=== PATIENT | female | born 1970 | race Caucasian/White ===

== ENCOUNTER 2022-08-09 12:31 | Outpatient (REF) | payer OTHER, SELFPAY ==
[2022-08-09 15:09] LABS: Erythrocyte Sedimentation Rate 28 MM/HR (0-20)
== END 2022-08-09 12:32 | disposition home or self-care (01) ==
LOC: HO.XRAY 12:31
PROVIDERS: PCP Internal Medicine; Visit Provider Internal Medicine Rheumatology
DX: M25.561 Pain in right knee (principal); R20.0 Anesthesia of skin
CPT/HCPCS: 36415; 85652; 86140; 99202

== ENCOUNTER 2024-07-16 07:36 | Outpatient (REF) | payer OTHER, SELFPAY ==
[2024-07-16 10:45] LABS: Alanine Aminotransferase 44 U/L (0-31); Albumin Level 4.4 g/dL (3.5-5.0); Alkaline Phosphatase 77 U/L (39-117); Anion Gap 14 (12-20); Aspartate Amino Transferase 47 U/L (5-31); Bilirubin Total 0.5 mg/dL (0.0-1.0); Blood Urea Nitrogen 15 mg/dL (9-16); Calcium 10.2 mg/dL (8.4-10.2); Carbon Dioxide 26 mmol/L (22-29); Chloride 101 mmol/L (96-108); Cholesterol 210 mg/dL (<200); Estimated Glomerular Filt Rate > 60; Glucose Random 91 mg/dL (60-115); HDL Cholesterol 45 mg/dL (>40); LDL Cholesterol Calculated 121 mg/dL (<100); Potassium 3.9 mmol/L (3.3-5.1); Sodium 137 mmol/L (135-145); Triglycerides 221 mg/dL (<150)
[2024-07-16 10:47] LABS: Estimated Average Glucose 111 mg/dL; Hemoglobin A1C 129.3689 umol/L; Hemoglobin A1c % 5.5 % (<6.0); Total Hemoglobin (HGBA1C) 3565.7168 umol/L
== END 2024-07-16 07:37 | disposition home or self-care (01) ==
LOC: HO.HMGCLDS 07:36
PROVIDERS: PCP Internal Medicine; Referring Provider Nurse Practitioner Acute Care; Visit Provider Physician Assistant
DX: E11.29 Type 2 diabetes mellitus with other diabetic kidney complication (principal); R80.9 Proteinuria, unspecified; E78.00 Pure hypercholesterolemia, unspecified
CPT/HCPCS: 36415; 80053; 80061; 83036

== ENCOUNTER 2025-01-08 14:40 | Outpatient (AMB) | payer OTHER, SELFPAY ==
[2025-01-08 14:58] VITALS: BP 112/80; PULSE 68; TEMP 36.8; O2SAT 98
--- NOTE | 2025-01-08 14:58 | MHC.OFFWIV ---
Intake Vital Signs 01/08/25 14:58 Weight 121 lb BP 112/80 Blood Pressure Location Rt brachial Position Sitting Pulse 68 Pulse Source Pulse Oximeter Temp 98.3 F Temp Source Oral Pulse Oximetry (%) 98 Oxygen Delivery Method Room Air Intake Visit Reasons: FACING [employer]ER Bilat ear pain/itching, cough Patient Tobacco Use Status: Never used Tobacco Allergies iodine Allergy (Intermediate, Verified 01/08/25 14:59) RASH ibuprofen [From Advil] Adverse Reaction (Severe, Verified 01/08/25 15:00) tachycardia shellfish derived Adverse Reaction (Mild, Verified 01/08/25 14:59) Nausea and Vomiting Do you need a note to return to daycare/school/sports/work: No HPI HPI Comments History of Present Illness Details She presents with L sided ear ache this am + allergy symptoms with congestion yesterday Pain with palpated into L ear with itchiness inside No drainage 05/14 discomfort No trauma she can recall with Q tip + cough since yesterday Takes Loratidine for symptoms PFSH Medical History (Updated 01/08/25 @ 15:19 by Enriqueta Rinaldi PA-C) Hepatic steatosis GERD (gastroesophageal reflux disease) Obesity (BMI 30-39.9) Diabetes Surgical History Hx laparoscopic cholecystectomy Hx of tubal ligation Family History (Updated 08/09/22 @ 11:10 by JASBIR Wilson) Mother Diabetes Father Diabetes Myocardial infarct Hypertension Social History (Updated 08/09/22 @ 11:10 by JASBIR Wilson) Household Members: Spouse Alcohol intake: current Alcohol intake frequency: does not drink Patient Tobacco Use Status: Never used Tobacco Current occupational status: unemployed Review of Systems Const Denies chills and Denies fever(s) ENT Reports otalgia and Reports nasal congestion Resp Reports cough Musc Denies myalgias Physical Exam Vital Signs: Last Vital Signs Temp 98.3 F 01/08/25 14:58 Pulse 68 01/08/25 14:58 BP 112/80 01/08/25 14:58 Pulse Ox 98 01/08/25 14:58 Oxygen Delivery Method Room Air 01/08/25 14:58 General: Non-toxic, NAD. Speaking full sentences. Skin: Warm dry throughout Eye: EOMI HENT: Airway patent. Uvula midline. No pharyngeal erythema or edema. No W[employer] REPA[employer]ER. Bilateral canals clear. L TM + yellow fluid noted behind TM but TM non-erythematous, non-bulging bilaterally. No TM perforation or hemotympanum noted. No external aurcicle ttp. No mastoid tenderness Respiratory: CTA bilaterally. No wheezes, rales or rhonchi Cardiac: RRR. No murmur Neurology:Alert. No aphasia or facial droop. Gait without abnormality Psych: Good mood and affect Assessment & Plan Assessment & Plan (1) Eustachian tube dysfunction: Code(s): H69.90 - Unspecified Eustachian tube disorder, unspecified ear Qualifiers: Laterality: left Qualified Code(s): H69.92 - Unspecified Eustachian tube disorder, left ear Plan: Patient seen and evaluated. + fluid behind L ear Not infected yet but discussed could become infected if fluid not resolved Will give in 24-48 hours and if symptoms continual/worse, will take antibiotic as prescribed Patient gave verbal understanding and had no additional questions or concerns at time of discharge All questions answered Medications: New fluconazole (Diflucan) 200 mg PO DAILY 1 tab 0RF amoxicillin 875 mg PO BID 7 days 14 tabs 0RF Coding Level of Care Code Est Pt Level 3 (40256) Diagnoses Dysfunction of left eustachian tube H69.92 Laterality: left
--- OUTSIDE RECORDS SUMMARY | 2025-01-08 15:47 | XMS_ITS ---
Author Organization [facility] Address [address] [place] [address] Care Team Providers Care Time Study Observer Name Role Phone JONATAN MOISE Unavailable [phone] REASON FOR VISIT prescription MEDICATIONS Medication SIG (Take, Route, Frequency, Duration) Notes Start Date End Date Status Mounjaro 7.5 MG/0.5ML 7.5mg Subcutaneous weekly for 30 days E11.9 Type 2 diabetes mellitus without complication, without long-term current use of insulin 09/14/2024 Active Encounters Encounter Location Date Provider Diagnosis [place] [id number] [address] 09/18/2024 JONATAN MOISE Overweight (BMI 25.0-29.9) E66.3 ASSESSMENTS Encounter Date Diagnosis Assessment Notes Treatment Notes Treatment Clinical Notes Section Notes 09/18/2024 Overweight (BMI 25.0-29.9) (ICD-10 - E66.3) PLAN OF TREATMENT Medication Medication Name Sig Start Date Stop Date Notes Mounjaro 7.5 MG/0.5ML 7.5mg Subcutaneous weekly for 30 days 09/14/2024 E11.9 Type 2 diabetes mellitus without complication, without long-term current use of insulin Next Appt Details Provider Name:JONATAN MOISE, 01/18/2025 11:00:00 AM, [address], [place], [address], Progress Notes * Annia CORDOVADOB: [birth year] (54 yo F)Acc No.[id number]:09/18/2024 Patient:??Annia CORDOVA :1970?Age:54 Y?Sex:Fe male Address:[address] [place] [address], [place] [address] * Refills?? Refill Mounjaro Solution Auto-injector, 7.5 MG/0.5ML, Subcutaneous, 4 Pen Needle, 7.5mg, weekly, 30 days, Refills=1 * true * Date:??
--- OUTSIDE RECORDS SUMMARY | 2025-01-08 15:47 | XMS_ITS | Patient Health Record ---
Author Organization [facility] Address [address] [place] [address] Care Team Providers Care Dry Room Operator Name Role Phone JONATAN MOISE Unavailable [phone] ALLERGIES Allergen (clinical drug ingredient) Drug/Non Drug Allergy documented on EMR Reaction Allergy Type Onset Date Status Iodine hives Drug Allergy Active shrimp allergenic extract Shrimp (Diagnostic) Unknown Drug Allergy Active REASON FOR REFERRAL No Information MEDICATIONS Medication SIG (Take, Route, Frequency, Duration) Notes Start Date End Date Status Linzess 145 MCG 1 capsule at least 3 0 minutes before the first meal of the day on an empty stomach Orally Once a day for 30 days 11/23/2024 Active Omeprazole Active Melatonin Active Mounjaro 5 MG/0.5ML 5mg Subcutaneous wee kly for 28 days 06/22/2024 Active B Complex Active Levocetirizine Dihydrochloride 5 MG 1 tablet in the evening Orally Once a day Active Potassium Active Mounjaro 7.5 MG/0.5ML 7.5mg, DX E11.9 Ty pe 2 DM Subcutaneous weekly for 30 days Active Benzonatate Active Meloxicam Active Vitamin D Active Magnesium 250 MG 1 capsule Orally Onc e a day Active SOCIAL HISTORY Tobacco Use: Social History Observation Description Date Details (start date - stop date) Never Smoker NA - NA Sex Assigned At : Social History Observation Description Sex Assigned At Unknown Tobacco Use/Smoking Question Answer Notes Are you a nonsmoker Alcohol Screen (Audit-C) Question Answer Notes Did you have a drink containing alcohol in the p ast year? No Points 0 Interpretation Negative Section Notes: - - - - - - - - PROBLEMS Problem Type ICD Code Onset Dates Problem Status W/U Status Risk SNOMED Code Notes Problem Other obesity due to excess calories (E66.09) Active confirmed 304224015 Problem Irritable bowel syndrome with constipation (K58.1) Active confirmed 562130281 Problem Type 2 diabetes mellitus without complication, without long-term current use of insulin (E11.9) Active confirmed 611345671 Problem Body mass index [BMI] 32.0-32.9, adult (Z68.32) Active confirmed 172669016 Problem BMI 30.0-30.9,adult (Z68.30) Active confirmed 949925114 Problem Overweight (BMI 25.0-29.9) (E66.3) Active confirmed VITAL SIGNS Heart Rate 66 /min 11/23/2024 Blood pressure diastolic 68 mm Hg 11/23/2024 Oximetry 95 % 11/23/2024 Height 60 in 11/23/2024 Blood pressure systolic 104 mm Hg 11/23/2024 Weight 123 lbs 11/23/2024 BMI 24.02 kg/m2 11/23/2024 Encounters Encounter Location Date Provider Diagnosis [facility] [address] [place] [address] 08/31/2024 JONATAN MOISE BMI 26.0-26.9,adult Z68.26 ; Overweight (BMI 25.0-29.9) E66.3 ; Dietary counseling and surveillance Z71.3 and Type 2 diabetes mellitus without complication, without long-term current use of insulin E11.9 [facility] [address] [place] [address] 05/18/2024 JONATAN MOISE Type 2 diabetes mellitus without complication, without long-term current use of insulin E11.9 ; Overweight (BMI 25.0-29.9) E66.3 ; BMI 28.0-28.9,adult Z68.28 and Dietary counseling and surveillance Z71.3 [facility] [address] [place] [address] 06/22/2024 JONATAN MOISE Overweight (BMI 25.0-29.9) E66.3 ; BMI 27.0-27.9,adult Z68.27 ; Type 2 diabetes mellitus without complication, without long-term current use of insulin E11.9 and Dietary counseling and surveillance Z71.[address] [address] 07/27/2024 JONATAN MOISE BMI 26.0-26.9,adult Z68.26 ; Overweight (BMI 25.0-29.9) E66.3 ; Dietary counseling and surveillance Z71.3 and Type 2 diabetes mellitus without complication, without long-term current use of insulin E11.9 [facility] [address] [place] [address] 09/14/2024 JONATAN MOISE BMI 25.0-25.9,adult Z68.25 ; Overweight (BMI 25.0-29.9) E66.3 ; Dietary counseling and surveillance Z71.3 and Type 2 diabetes mellitus without complication, without long-term current use of insulin E11.9 [facility] [address] [place] [address] 10/19/2024 JONATAN MOISE Type 2 diabetes mellitus without complication, without long-term current use of insulin E11.9 ; BMI 24.0-24.9, adult Z68.24 and Dietary counseling and surveillance Z71.3 [facility] [address] [place] [address] 11/23/2024 JONATAN MOISE Type 2 diabetes mellitus without complication, without long-term current use of insulin E11.9 ; BMI 24.0-24.9, adult Z68.24 ; Dietary counseling and surveillance Z71.3 and Irritable bowel syndrome with constipation K58.[phone] [address] 05/15/2024 JONATAN RENEET [phone] [address] 05/21/2024 JONATAN MOISE Type 2 diabetes mellitus without complication, without long-term current use of insulin E11.9 [facility] [phone] [address] 05/23/2024 JONATAN MOISE Type 2 diabetes mellitus without complication, without long-term current use of insulin E11.9 [place] [address] [address] 09/18/2024 JONATAN MOISE Overweight (BMI 25.0-29.9) E66.3 ASSESSMENTS Encounter Date Diagnosis Assessment Notes Treatment Notes Treatment Clinical Notes Section Notes 05/18/2024 Overweight (BMI 25.0-29.9) (ICD-10 - E66.3) #Weight Management 05/18/2024 Patient expresses interest in resuming dual incretin's I am okay with this I will try and track down her most recent comprehensive labs In office A1c of 6.1 today Discussed importance of protein consumption for muscle maintenance as well as probiotics, B12 complex biotin , iron and other nutrients, To help avoid telogen effluvium while on weight loss medications such as GLP-1 Patient has been found with a BMI of (28). We discussed in detail the management of [...] as prescribed and comply with lifestyle modifications. Patient was reassured and welcomed to the practice. We discussed that we stress a hollistic medical approach with emphasis on lifestyle modification. Patient was informed that a healthy lifestyle with exercise and good eating habits can help reduce his risk of medical complications. He is explained that obesity increases his risk of diabetes, cardiovascular disease, or organ damage. We spent a lot of time discussing the relationship between food, exercise, sleep, mental health and obesity. Patient was counseled on the importance EATING local, organic food when possible. Patient was educated on clean 15 and dirty dozen. I provided information about reading books called The Food Rules by Rad Yee and Eat Fat Get Lean by Dr Jag Chopra. Self education is important in the journey for weight management. Patient was offered diagnostic testing. We want to measure visceral adiposity, advanced body composition, adverse lipids, fatty acid balance, risk for heart disease and atherosclerosis, markers of inflammation and genetic susceptibility. Patient was counseled on weight management and was advised to lose weight using A. Meal Replacement Products Patient was educated on the replacement products called optifast. This is a good way of taking fixed amount of calories. It has been shown in studies to be ineffective weight management tool. This however has to be coupled with lifestyle intervention as well as laboratory data and EKG monitoring. It is impossible to know how a person will tolerate complete meal replacement. The side effects of meal replacement and weight loss could include syncopal attacks, dizziness, gallstones, potential cholecystectomy, possible heart attack and even . The benefits of meal replacement would be potential weight loss but no guarantees can be made. Meal replacement products are not covered by insurance. Once the patient has bought these products we cannot return them B. Lifestyle management which includes several strategies as below 1. Eat a low carbohydrate good fat good protein diet. Eliminate refined carbohydrates from the diet. Continue blood sugar and sugared beverages. Eat local organic when possible. Cook your own meals. Read food labels. None about healthy snacks. Portion control and food with low glycemic index 2. Exercise regularly. Try to get at least 6000 steps a day. Use a predominant to track activity level. Consider using apps like [employer], [employer], lose it, stick as needed for self-monitoring and weight management. Consider group exercises. Consider hiring a personal financial advisor. Regular exercise is byers to sustainable health and prevents as a buffer against weight regain 3. Sleep is most important for healing. Tried to sleep at least 8 hours a night. A good quality sleep needs a sleep ritual with ideal room temperature of around 68. It might help to take a shower and have no electronics in the room and sleep in a very dark room without artificial light. Start her sleep routine and get up early in the morning and go to bed on time 4. Make a social connection. Surround yourself with positive people with positive energy. Connect with friends and family. 5. Get into the habit of meditating and mindfulness while doing everything. 6. Go outside and connect with nature. C. Prescription medications Patient was educated on the use of prescription medications for medical weight loss. This is a growing list and includes phentermine, Topamax,Qsymia, contrave, belviq and saxenda. All prescription medications could have side effects including but not limited to kidney stones, seizure disorder cardiac arrhythmias heart attack pancreatitis etc. etc.. Patient was encouraged to read the prescription insert and have coaching with their pharmacist and make an informed decision about taking medication and know that these medications are being prescribed with good intentions and we do not know how a patient would react to her medication. Sudden medications are FDA approved for weight loss and there is also off label use depending on patient's inability to afford medications in an attempt to lose weight D. Behavioral counseling was done to establish a relationship between food and an mood. Patient was provided information about local counseling and psychiatry and Dr Flores at [facility]. We would like to cover regular topics and build on low glycemic eating exercise mindful eating, using yoga and meditation along with deep breathing and connecting with friends and family. E. MASS PAT reviewed, Patient's current medications were reviewed and opinion was given on medication that can cause weight gain and can be substituted F. Patient was assessed for risk with obesity including and not limiting to atherosclerosis heart disease stroke kidney disease, restrictive lung disease, irritable bowel syndrome and overall mortality. Risk of developing prediabetes diabetes and metabolic syndrome was discussed G. Therapeutic plan: We have decided to make therapeutic plan which would include choosing wisely on calories restricting portion getting active, tracking weight, getting good quality sleep and working on time management H. Patient will follow up in (4) weeks for weight management Total time spent today was 45 minutes of which greater than 50% was spent on coordinating and counseling 05/21/2024 Type 2 diabetes mellitus without complication, without long-term current use of insulin (ICD-10 - E11.9) 05/23/2024 Type 2 diabetes mellitus without complication, without long-term current use of insulin (ICD-10 - E11.9) 06/22/2024 BMI 27.0-27.9,adult (ICD-10 - Z68.27) #Weight Management 06/22/2024 Increase to 5 mg Follow-up on labs in July with primary care Time spent today was 30 minutes, greater than 50% on coordination and counseling Patient has been found with a BMI of (27.5). We discussed in detail the management of [...] software and direct typing Please excuse inadvertent sweet pickle maker or typing errors, or uncorrected word substitutions Although every attempt has been made by the provider to proofread this document, occasional misspellings and typographical errors may still be present Due to the previous pandemic, and the use of personal protective equipment (PPE) This may decrease voice recognition accuracy Inadvertent sweet pickle maker errors may occur 06/22/2024 Overweight (BMI 25.0-29.9) (ICD-10 - E66.3) #Weight Management 06/22/2024 Increase to 5 mg Follow-up on labs in July with primary care Time spent today was 30 minutes, greater than 50% on coordination and counseling Patient has been found with a BMI of (27.5). We discussed in detail the management of [...] software and direct typing Please excuse inadvertent sweet pickle maker or typing errors, or uncorrected word substitutions Although every attempt has been made by the provider to proofread this document, occasional misspellings and typographical errors may still be present Due to the previous pandemic, and the use of personal protective equipment (PPE) This may decrease voice recognition accuracy Inadvertent sweet pickle maker errors may occur 07/27/2024 BMI 26.0-26.9,adult (ICD-10 - Z68.26) #Weight Management 07/27/2024 Body composition analysis improving with improving fat [...] software and direct typing Please excuse inadvertent sweet pickle maker or typing errors, or uncorrected word substitutions Although every attempt has been made by the provider to proofread this document, occasional misspellings and typographical errors may still be present Due to the previous pandemic, and the use of personal protective equipment (PPE) This may decrease voice recognition accuracy Inadvertent sweet pickle maker errors may occur 08/31/2024 BMI 26.0-26.9,adult (ICD-10 - Z68.26) #Weight [...] software and direct typing Please excuse inadvertent sweet pickle maker or typing errors, or uncorrected word substitutions Although every attempt has been made by the provider to proofread this document, occasional misspellings and typographical errors may still be present Due to the previous pandemic, and the use of personal protective equipment (PPE) This may decrease voice recognition accuracy Inadvertent sweet pickle maker errors may occur 05/18/2024 Type 2 diabetes mellitus without complication, without long-term current use of insulin (ICD-10 - E11.9) #Weight Management 05/18/2024 Patient expresses interest in resuming dual incretin's I am okay with this I will try and track down her most recent comprehensive labs In office A1c of 6.1 today Discussed importance of protein consumption for muscle maintenance as well as probiotics, B12 complex biotin , iron and other nutrients, To help avoid telogen effluvium while on weight loss medications such as GLP-1 Patient has been found with a BMI of (28). We discussed in detail the management of [...] as prescribed and comply with lifestyle modifications. Patient was reassured and welcomed to the practice. We discussed that we stress a hollistic medical approach with emphasis on lifestyle modification. Patient was informed that a healthy lifestyle with exercise and good eating habits can help reduce his risk of medical complications. He is explained that obesity increases his risk of diabetes, cardiovascular disease, or organ damage. We spent a lot of time discussing the relationship between food, exercise, sleep, mental health and obesity. Patient was counseled on the importance EATING local, organic food when possible. Patient was educated on clean 15 and dirty dozen. I provided information about reading books called The Food Rules by Rad Yee and Eat Fat Get Lean by Dr Jag Chopra. Self education is important in the journey for weight management. Patient was offered diagnostic testing. We want to measure visceral adiposity, advanced body composition, adverse lipids, fatty acid balance, risk for heart disease and atherosclerosis, markers of inflammation and genetic susceptibility. Patient was counseled on weight management and was advised to lose weight using A. Meal Replacement Products Patient was educated on the replacement products called optifast. This is a good way of taking fixed amount of calories. It has been shown in studies to be ineffective weight management tool. This however has to be coupled with lifestyle intervention as well as laboratory data and EKG monitoring. It is impossible to know how a person will tolerate complete meal replacement. The side effects of meal replacement and weight loss could include syncopal attacks, dizziness, gallstones, potential cholecystectomy, possible heart attack and even . The benefits of meal replacement would be potential weight loss but no guarantees can be made. Meal replacement products are not covered by insurance. Once the patient has bought these products we cannot return them B. Lifestyle management which includes several strategies as below 1. Eat a low carbohydrate good fat good protein diet. Eliminate refined carbohydrates from the diet. Continue blood sugar and sugared beverages. Eat local organic when possible. Cook your own meals. Read food labels. None about healthy snacks. Portion control and food with low glycemic index 2. Exercise regularly. Try to get at least 6000 steps a day. Use a predominant to track activity level. Consider using apps like [employer], [employer], lose it, stick as needed for self-monitoring and weight management. Consider group exercises. Consider hiring a personal financial advisor. Regular exercise is byers to sustainable health and prevents as a buffer against weight regain 3. Sleep is most important for healing. Tried to sleep at least 8 hours a night. A good quality sleep needs a sleep ritual with ideal room temperature of around 68. It might help to take a shower and have no electronics in the room and sleep in a very dark room without artificial light. Start her sleep routine and get up early in the morning and go to bed on time 4. Make a social connection. Surround yourself with positive people with positive energy. Connect with friends and family. 5. Get into the habit of meditating and mindfulness while doing everything. 6. Go outside and connect with nature. C. Prescription medications Patient was educated on the use of prescription medications for medical weight loss. This is a growing list and includes phentermine, Topamax,Qsymia, contrave, belviq and saxenda. All prescription medications could have side effects including but not limited to kidney stones, seizure disorder cardiac arrhythmias heart attack pancreatitis etc. etc.. Patient was encouraged to read the prescription insert and have coaching with their pharmacist and make an informed decision about taking medication and know that these medications are being prescribed with good intentions and we do not know how a patient would react to her medication. Sudden medications are FDA approved for weight loss and there is also off label use depending on patient's inability to afford medications in an attempt to lose weight D. Behavioral counseling was done to establish a relationship between food and an mood. Patient was provided information about local counseling and psychiatry and Dr Flores at [facility]. We would like to cover regular topics and build on low glycemic eating exercise mindful eating, using yoga and meditation along with deep breathing and connecting with friends and family. E. MASS PAT reviewed, Patient's current medications were reviewed and opinion was given on medication that can cause weight gain and can be substituted F. Patient was assessed for risk with obesity including and not limiting to atherosclerosis heart disease stroke kidney disease, restrictive lung disease, irritable bowel syndrome and overall mortality. Risk of developing prediabetes diabetes and metabolic syndrome was discussed G. Therapeutic plan: We have decided to make therapeutic plan which would include choosing wisely on calories restricting portion getting active, tracking weight, getting good quality sleep and working on time management H. Patient will follow up in (4) weeks for weight management Total time spent today was 45 minutes of which greater than 50% was spent on coordinating and counseling 09/14/2024 BMI 25.0-25.9,adult (ICD-10 - Z68.25) #Weight Management 09/14/2024 Increase to 7.5 mg Body composition analysis improving with improving fat mass and waist circumference She is thriving and now euglycemic Labs reviewed Time spent today was 30 minutes, greater than 50% on coordination and counseling Patient has been found with a BMI of (25). We discussed in detail the management of [...] software and direct typing Please excuse inadvertent sweet pickle maker or typing errors, or uncorrected word substitutions Although every attempt has been made by the provider to proofread this document, occasional misspellings and typographical errors may still be present Due to the previous pandemic, and the use of personal protective equipment (PPE) This may decrease voice recognition accuracy Inadvertent sweet pickle maker errors may occur 10/19/2024 Type 2 diabetes mellitus without complication, without long-term current use of insulin (ICD-10 - E11.9) #Weight Management 10/19/2024 Continue 7.5 mg dosing Started incorporating strength and resistance training Body composition analysis improving with improving fat mass euglycemic Time spent today was 30 minutes, greater than 50% on coordination and counseling Patient has been found with a normal BMI of (24). Of note, some information is being carried forward from prior records for informational purposes only and is being cited so that efficiency, safety and quality of the patient's care is not compromised This note was prepared using voice recognition software and direct typing Please excuse inadvertent sweet pickle maker or typing errors, or uncorrected word substitutions Although every attempt has been made by the provider to proofread this document, occasional misspellings and typographical errors may still be present Due to the previous pandemic, and the use of personal protective equipment (PPE) This may decrease voice recognition accuracy Inadvertent sweet pickle maker errors may occur 09/18/2024 Overweight (BMI 25.0-29.9) (ICD-10 - E66.3) 11/23/2024 Type 2 diabetes mellitus without complication, without long-term current use of insulin (ICD-10 - E11.9) #Weight Management 11/23/2024 Maintenance dosing discussed Trial Linzess Started incorporating strength and resistance training Body composition analysis improving with improving fat mass euglycemic Time spent today was 30 minutes, greater than 50% on coordination and counseling Patient has been found with a normal BMI of (24). Of note, some information is being carried forward from prior records for informational purposes only and is being cited so that efficiency, safety and quality of the patient's care is not compromised This note was prepared using voice recognition software and direct typing Please excuse inadvertent sweet pickle maker or typing errors, or uncorrected word substitutions Although every attempt has been made by the provider to proofread this document, occasional misspellings and typographical errors may still be present Due to the previous pandemic, and the use of personal protective equipment (PPE) This may decrease voice recognition accuracy Inadvertent sweet pickle maker errors may occur 11/23/2024 BMI 24.0-24.9, adult (ICD-10 - Z68.24) #Weight Management 11/23/2024 Maintenance dosing discussed Trial Digna Started incorporating strength and resistance training Body composition analysis improving with improving fat mass euglycemic Time spent today was 30 minutes, greater than 50% on coordination and counseling Patient has been found with a normal BMI of (24). Of note, some information is being carried forward from prior records for informational purposes only and is being cited so that efficiency, safety and quality of the patient's care is not compromised This note was prepared using voice recognition software and direct typing Please excuse inadvertent sweet pickle maker or typing errors, or uncorrected word substitutions Although every attempt has been made by the provider to proofread this document, occasional misspellings and typographical errors may still be present Due to the previous pandemic, and the use of personal protective equipment (PPE) This may decrease voice recognition accuracy Inadvertent sweet pickle maker errors may occur 06/22/2024 Type 2 diabetes mellitus without complication, without long-term current use of insulin (ICD-10 - E11.9) #Weight Management 06/22/2024 Increase to 5 mg Follow-up on labs in July with primary care Time spent today was 30 minutes, greater than 50% on coordination and counseling Patient has been found with a BMI of (27.5). We discussed in detail the management of [...] software and direct typing Please excuse inadvertent sweet pickle maker or typing errors, or uncorrected word substitutions Although every attempt has been made by the provider to proofread this document, occasional misspellings and typographical errors may still be present Due to the previous pandemic, and the use of personal protective equipment (PPE) This may decrease voice recognition accuracy Inadvertent sweet pickle maker errors may occur 10/19/2024 BMI 24.0-24.9, adult (ICD-10 - Z68.24) #Weight Management 10/19/2024 Continue 7.5 mg dosing Started incorporating strength and resistance training Body composition analysis improving with improving fat mass euglycemic Time spent today was 30 minutes, greater than 50% on coordination and counseling Patient has been found with a normal BMI of (24). Of note, some information is being carried forward from prior records for informational purposes only and is being cited so that efficiency, safety and quality of the patient's care is not compromised This note was prepared using voice recognition software and direct typing Please excuse inadvertent sweet pickle maker or typing errors, or uncorrected word substitutions Although every attempt has been made by the provider to proofread this document, occasional misspellings and typographical errors may still be present Due to the previous pandemic, and the use of personal protective equipment (PPE) This may decrease voice recognition accuracy Inadvertent sweet pickle maker errors may occur 09/14/2024 Overweight (BMI 25.0-29.9) (ICD-10 - E66.3) #Weight Management 09/14/2024 Increase to 7.5 mg Body composition analysis improving with improving fat mass and waist circumference She is thriving and now euglycemic Labs reviewed Time spent today was 30 minutes, greater than 50% on coordination and counseling Patient has been found with a BMI of (25). We discussed in detail the management of [...] software and direct typing Please excuse inadvertent sweet pickle maker or typing errors, or uncorrected word substitutions Although every attempt has been made by the provider to proofread this document, occasional misspellings and typographical errors may still be present Due to the previous pandemic, and the use of personal protective equipment (PPE) This may decrease voice recognition accuracy Inadvertent sweet pickle maker errors may occur 05/18/2024 BMI 28.0-28.9,adult (ICD-10 - Z68.28) #Weight Management 05/18/2024 Patient expresses interest in resuming dual incretin's I am okay with this I will try and track down her most recent comprehensive labs In office A1c of 6.1 today Discussed importance of protein consumption for muscle maintenance as well as probiotics, B12 complex biotin , iron and other nutrients, To help avoid telogen effluvium while on weight loss medications such as GLP-1 Patient has been found with a BMI of (28). We discussed in detail the management of [...] as prescribed and comply with lifestyle modifications. Patient was reassured and welcomed to the practice. We discussed that we stress a hollistic medical approach with emphasis on lifestyle modification. Patient was informed that a healthy lifestyle with exercise and good eating habits can help reduce his risk of medical complications. He is explained that obesity increases his risk of diabetes, cardiovascular disease, or organ damage. We spent a lot of time discussing the relationship between food, exercise, sleep, mental health and obesity. Patient was counseled on the importance EATING local, organic food when possible. Patient was educated on clean 15 and dirty dozen. I provided information about reading books called The Food Rules by Rad Yee and Eat Fat Get Lean by Dr Jag Chopra. Self education is important in the journey for weight management. Patient was offered diagnostic testing. We want to measure visceral adiposity, advanced body composition, adverse lipids, fatty acid balance, risk for heart disease and atherosclerosis, markers of inflammation and genetic susceptibility. Patient was counseled on weight management and was advised to lose weight using A. Meal Replacement Products Patient was educated on the replacement products called optifast. This is a good way of taking fixed amount of calories. It has been shown in studies to be ineffective weight management tool. This however has to be coupled with lifestyle intervention as well as laboratory data and EKG monitoring. It is impossible to know how a person will tolerate complete meal replacement. The side effects of meal replacement and weight loss could include syncopal attacks, dizziness, gallstones, potential cholecystectomy, possible heart attack and even . The benefits of meal replacement would be potential weight loss but no guarantees can be made. Meal replacement products are not covered by insurance. Once the patient has bought these products we cannot return them B. Lifestyle management which includes several strategies as below 1. Eat a low carbohydrate good fat good protein diet. Eliminate refined carbohydrates from the diet. Continue blood sugar and sugared beverages. Eat local organic when possible. Cook your own meals. Read food labels. None about healthy snacks. Portion control and food with low glycemic index 2. Exercise regularly. Try to get at least 6000 steps a day. Use a predominant to track activity level. Consider using apps like [employer], [employer], lose it, stick as needed for self-monitoring and weight management. Consider group exercises. Consider hiring a personal financial advisor. Regular exercise is byers to sustainable health and prevents as a buffer against weight regain 3. Sleep is most important for healing. Tried to sleep at least 8 hours a night. A good quality sleep needs a sleep ritual with ideal room temperature of around 68. It might help to take a shower and have no electronics in the room and sleep in a very dark room without artificial light. Start her sleep routine and get up early in the morning and go to bed on time 4. Make a social connection. Surround yourself with positive people with positive energy. Connect with friends and family. 5. Get into the habit of meditating and mindfulness while doing everything. 6. Go outside and connect with nature. C. Prescription medications Patient was educated on the use of prescription medications for medical weight loss. This is a growing list and includes phentermine, Topamax,Qsymia, contrave, belviq and saxenda. All prescription medications could have side effects including but not limited to kidney stones, seizure disorder cardiac arrhythmias heart attack pancreatitis etc. etc.. Patient was encouraged to read the prescription insert and have coaching with their pharmacist and make an informed decision about taking medication and know that these medications are being prescribed with good intentions and we do not know how a patient would react to her medication. Sudden medications are FDA approved for weight loss and there is also off label use depending on patient's inability to afford medications in an attempt to lose weight D. Behavioral counseling was done to establish a relationship between food and an mood. Patient was provided information about local counseling and psychiatry and Dr Flores at [facility]. We would like to cover regular topics and build on low glycemic eating exercise mindful eating, using yoga and meditation along with deep breathing and connecting with friends and family. E. MASS PAT reviewed, Patient's current medications were reviewed and opinion was given on medication that can cause weight gain and can be substituted F. Patient was assessed for risk with obesity including and not limiting to atherosclerosis heart disease stroke kidney disease, restrictive lung disease, irritable bowel syndrome and overall mortality. Risk of developing prediabetes diabetes and metabolic syndrome was discussed G. Therapeutic plan: We have decided to make therapeutic plan which would include choosing wisely on calories restricting portion getting active, tracking weight, getting good quality sleep and working on time management H. Patient will follow up in (4) weeks for weight management Total time spent today was 45 minutes of which greater than 50% was spent on coordinating and counseling 08/31/2024 Overweight (BMI 25.0-29.9) (ICD-10 - E66.3) [...] software and direct typing Please excuse inadvertent sweet pickle maker or typing errors, or uncorrected word substitutions Although every attempt has been made by the provider to proofread this document, occasional misspellings and typographical errors may still be present Due to the previous pandemic, and the use of personal protective equipment (PPE) This may decrease voice recognition accuracy Inadvertent sweet pickle maker errors may occur 09/14/2024 Dietary counseling and surveillance (ICD-10 - Z71.3) #Weight Management 09/14/2024 Increase to 7.5 mg Body composition analysis improving with improving fat mass and waist circumference She is thriving and now euglycemic Labs reviewed Time spent today was 30 minutes, greater than 50% on coordination and counseling Patient has been found with a BMI of (25). We discussed in detail the management of [...] software and direct typing Please excuse inadvertent sweet pickle maker or typing errors, or uncorrected word substitutions Although every attempt has been made by the provider to proofread this document, occasional misspellings and typographical errors may still be present Due to the previous pandemic, and the use of personal protective equipment (PPE) This may decrease voice recognition accuracy Inadvertent sweet pickle maker errors may occur 07/27/2024 Overweight (BMI 25.0-29.9) (ICD-10 - E66.3) #Weight Management 07/27/2024 Body composition analysis improving with improving fat [...] software and direct typing Please excuse inadvertent sweet pickle maker or typing errors, or uncorrected word substitutions Although every attempt has been made by the provider to proofread this document, occasional misspellings and typographical errors may still be present Due to the previous pandemic, and the use of personal protective equipment (PPE) This may decrease voice recognition accuracy Inadvertent sweet pickle maker errors may occur 07/27/2024 Dietary counseling and surveillance (ICD-10 - Z71.3) #Weight Management 07/27/2024 Body composition analysis improving with improving fat [...] software and direct typing Please excuse inadvertent sweet pickle maker or typing errors, or uncorrected word substitutions Although every attempt has been made by the provider to proofread this document, occasional misspellings and typographical errors may still be present Due to the previous pandemic, and the use of personal protective equipment (PPE) This may decrease voice recognition accuracy Inadvertent sweet pickle maker errors may occur 05/18/2024 Dietary counseling and surveillance (ICD-10 - Z71.3) #Weight Management 05/18/2024 Patient expresses interest in resuming dual incretin's I am okay with this I will try and track down her most recent comprehensive labs In office A1c of 6.1 today Discussed importance of protein consumption for muscle maintenance as well as probiotics, B12 complex biotin , iron and other nutrients, To help avoid telogen effluvium while on weight loss medications such as GLP-1 Patient has been found with a BMI of (28). We discussed in detail the management of [...] as prescribed and comply with lifestyle modifications. Patient was reassured and welcomed to the practice. We discussed that we stress a hollistic medical approach with emphasis on lifestyle modification. Patient was informed that a healthy lifestyle with exercise and good eating habits can help reduce his risk of medical complications. He is explained that obesity increases his risk of diabetes, cardiovascular disease, or organ damage. We spent a lot of time discussing the relationship between food, exercise, sleep, mental health and obesity. Patient was counseled on the importance EATING local, organic food when possible. Patient was educated on clean 15 and dirty dozen. I provided information about reading books called The Food Rules by Rad Yee and Eat Fat Get Lean by Dr Jag Chopra. Self education is important in the journey for weight management. Patient was offered diagnostic testing. We want to measure visceral adiposity, advanced body composition, adverse lipids, fatty acid balance, risk for heart disease and atherosclerosis, markers of inflammation and genetic susceptibility. Patient was counseled on weight management and was advised to lose weight using A. Meal Replacement Products Patient was educated on the replacement products called optifast. This is a good way of taking fixed amount of calories. It has been shown in studies to be ineffective weight management tool. This however has to be coupled with lifestyle intervention as well as laboratory data and EKG monitoring. It is impossible to know how a person will tolerate complete meal replacement. The side effects of meal replacement and weight loss could include syncopal attacks, dizziness, gallstones, potential cholecystectomy, possible heart attack and even . The benefits of meal replacement would be potential weight loss but no guarantees can be made. Meal replacement products are not covered by insurance. Once the patient has bought these products we cannot return them B. Lifestyle management which includes several strategies as below 1. Eat a low carbohydrate good fat good protein diet. Eliminate refined carbohydrates from the diet. Continue blood sugar and sugared beverages. Eat local organic when possible. Cook your own meals. Read food labels. None about healthy snacks. Portion control and food with low glycemic index 2. Exercise regularly. Try to get at least 6000 steps a day. Use a predominant to track activity level. Consider using apps like [employer], [employer], lose it, stick as needed for self-monitoring and weight management. Consider group exercises. Consider hiring a personal financial advisor. Regular exercise is byers to sustainable health and prevents as a buffer against weight regain 3. Sleep is most important for healing. Tried to sleep at least 8 hours a night. A good quality sleep needs a sleep ritual with ideal room temperature of around 68. It might help to take a shower and have no electronics in the room and sleep in a very dark room without artificial light. Start her sleep routine and get up early in the morning and go to bed on time 4. Make a social connection. Surround yourself with positive people with positive energy. Connect with friends and family. 5. Get into the habit of meditating and mindfulness while doing everything. 6. Go outside and connect with nature. C. Prescription medications Patient was educated on the use of prescription medications for medical weight loss. This is a growing list and includes phentermine, Topamax,Qsymia, contrave, belviq and saxenda. All prescription medications could have side effects including but not limited to kidney stones, seizure disorder cardiac arrhythmias heart attack pancreatitis etc. etc.. Patient was encouraged to read the prescription insert and have coaching with their pharmacist and make an informed decision about taking medication and know that these medications are being prescribed with good intentions and we do not know how a patient would react to her medication. Sudden medications are FDA approved for weight loss and there is also off label use depending on patient's inability to afford medications in an attempt to lose weight D. Behavioral counseling was done to establish a relationship between food and an mood. Patient was provided information about local counseling and psychiatry and Dr Flores at [facility]. We would like to cover regular topics and build on low glycemic eating exercise mindful eating, using yoga and meditation along with deep breathing and connecting with friends and family. E. MASS PAT reviewed, Patient's current medications were reviewed and opinion was given on medication that can cause weight gain and can be substituted F. Patient was assessed for risk with obesity including and not limiting to atherosclerosis heart disease stroke kidney disease, restrictive lung disease, irritable bowel syndrome and overall mortality. Risk of developing prediabetes diabetes and metabolic syndrome was discussed G. Therapeutic plan: We have decided to make therapeutic plan which would include choosing wisely on calories restricting portion getting active, tracking weight, getting good quality sleep and working on time management H. Patient will follow up in (4) weeks for weight management Total time spent today was 45 minutes of which greater than 50% was spent on coordinating and counseling 07/27/2024 Type 2 diabetes mellitus without complication, without long-term current use of insulin (ICD-10 - E11.9) #Weight Management 07/27/2024 Body composition analysis improving with improving fat [...] software and direct typing Please excuse inadvertent sweet pickle maker or typing errors, or uncorrected word substitutions Although every attempt has been made by the provider to proofread this document, occasional misspellings and typographical errors may still be present Due to the previous pandemic, and the use of personal protective equipment (PPE) This may decrease voice recognition accuracy Inadvertent sweet pickle maker errors may occur 06/22/2024 Dietary counseling and surveillance (ICD-10 - Z71.3) #Weight Management 06/22/2024 Increase to 5 mg Follow-up on labs in July with primary care Time spent today was 30 minutes, greater than 50% on coordination and counseling Patient has been found with a BMI of (27.5). We discussed in detail the management of [...] software and direct typing Please excuse inadvertent sweet pickle maker or typing errors, or uncorrected word substitutions Although every attempt has been made by the provider to proofread this document, occasional misspellings and typographical errors may still be present Due to the previous pandemic, and the use of personal protective equipment (PPE) This may decrease voice recognition accuracy Inadvertent sweet pickle maker errors may occur 08/31/2024 Dietary counseling and [...] software and direct typing Please excuse inadvertent sweet pickle maker or typing errors, or uncorrected word substitutions Although every attempt has been made by the provider to proofread this document, occasional misspellings and typographical errors may still be present Due to the previous pandemic, and the use of personal protective equipment (PPE) This may decrease voice recognition accuracy Inadvertent sweet pickle maker errors may occur 09/14/2024 Type 2 diabetes mellitus without complication, without long-term current use of insulin (ICD-10 - E11.9) #Weight Management 09/14/2024 Increase to 7.5 mg Body composition analysis improving with improving fat mass and waist circumference She is thriving and now euglycemic Labs reviewed Time spent today was 30 minutes, greater than 50% on coordination and counseling Patient has been found with a BMI of (25). We discussed in detail the management of [...] software and direct typing Please excuse inadvertent sweet pickle maker or typing errors, or uncorrected word substitutions Although every attempt has been made by the provider to proofread this document, occasional misspellings and typographical errors may still be present Due to the previous pandemic, and the use of personal protective equipment (PPE) This may decrease voice recognition accuracy Inadvertent sweet pickle maker errors may occur 11/23/2024 Dietary counseling and surveillance (ICD-10 - Z71.3) #Weight Management 11/23/2024 Maintenance dosing discussed Trial Linzess Started incorporating strength and resistance training Body composition analysis improving with improving fat mass euglycemic Time spent today was 30 minutes, greater than 50% on coordination and counseling Patient has been found with a normal BMI of (24). Of note, some information is being carried forward from prior records for informational purposes only and is being cited so that efficiency, safety and quality of the patient's care is not compromised This note was prepared using voice recognition software and direct typing Please excuse inadvertent sweet pickle maker or typing errors, or uncorrected word substitutions Although every attempt has been made by the provider to proofread this document, occasional misspellings and typographical errors may still be present Due to the previous pandemic, and the use of personal protective equipment (PPE) This may decrease voice recognition accuracy Inadvertent sweet pickle maker errors may occur 10/19/2024 Dietary counseling and surveillance (ICD-10 - Z71.3) #Weight Management 10/19/2024 Continue 7.5 mg dosing Started incorporating strength and resistance training Body composition analysis improving with improving fat mass euglycemic Time spent today was 30 minutes, greater than 50% on coordination and counseling Patient has been found with a normal BMI of (24). Of note, some information is being carried forward from prior records for informational purposes only and is being cited so that efficiency, safety and quality of the patient's care is not compromised This note was prepared using voice recognition software and direct typing Please excuse inadvertent sweet pickle maker or typing errors, or uncorrected word substitutions Although every attempt has been made by the provider to proofread this document, occasional misspellings and typographical errors may still be present Due to the previous pandemic, and the use of personal protective equipment (PPE) This may decrease voice recognition accuracy Inadvertent sweet pickle maker errors may occur 11/23/2024 Irritable bowel syndrome with constipation (ICD-10 - K58.1) #Weight Management 11/23/2024 Maintenance dosing discussed Trial Linzess Started incorporating strength and resistance training Body composition analysis improving with improving fat mass euglycemic Time spent today was 30 minutes, greater than 50% on coordination and counseling Patient has been found with a normal BMI of (24). Of note, some information is being carried forward from prior records for informational purposes only and is being cited so that efficiency, safety and quality of the patient's care is not compromised This note was prepared using voice recognition software and direct typing Please excuse inadvertent sweet pickle maker or typing errors, or uncorrected word substitutions Although every attempt has been made by the provider to proofread this document, occasional misspellings and typographical errors may still be present Due to the previous pandemic, and the use of personal protective equipment (PPE) This may decrease voice recognition accuracy Inadvertent sweet pickle maker errors may occur 08/31/2024 Type 2 diabetes [...] software and direct typing Please excuse inadvertent sweet pickle maker or typing errors, or uncorrected word substitutions Although every attempt has been made by the provider to proofread this document, occasional misspellings and typographical errors may still be present Due to the previous pandemic, and the use of personal protective equipment (PPE) This may decrease voice recognition accuracy Inadvertent sweet pickle maker errors may occur PLAN OF TREATMENT Next Appt Details Provider Name:JONATAN MOISE, 01/18/2025 11:00:00 AM, [address], [place], [place], [id number], Insurance Providers Payer Name Payer Address Payer Phone Subscriber Number Group Number Insured Name Patient Relationship to Insured Coverage Start Date Coverage End Date [facility] [address] [place] [phone] [id number] Annia Montelongo Self - patient is the insured [address] [place] [address] [id number] Annia Montelongo Self - patient is the insured 2 MEDICAL (GENERAL) HISTORY Medical History History ICD Code type II diabetes asthma headache kidney stones anxiety Surgical History Surgery Date(Month/Year) cholecystectomy
--- OUTSIDE RECORDS SUMMARY | 2025-01-08 15:47 | XMS_ITS | Clinical Summary ---
Author Organization [address] [place] [address] [place] [phone] Phone Care Team Providers Care Wellness Program Administrator Name Role Phone Janett Lopez Primary Care Provider + Allergies Active Allergy Reactions Criticality Noted Date Comments Iodinated Contrast Media Hives 09/13/2022 hives Iodine Rash 10/14/2021 Latex Itching 09/20/2013 Shellfish Derived Nausea And Vomiting, GI intolerance 12/16/2022 Medications blood sugar diagnostic (FreeStyle Lite Strips) test strip Apply 1 each topically 2 (two) times a day. 4 Active isopropyl alcohol-benzocai ne 70-6 % pads, medicated Apply 1 each topically 2 (two) times a day. 4 Active levocetirizine (XYZAL) 5 mg tablet Take 1 tablet (5 mg total) by mouth 1 (one) time each day in the evening. Active hydrOXYzine HCL (ATARAX) 25 mg tablet Take 2 Tablets by mouth at bedtime as needed for Anxiety (insomnia) 4 Active tiZANidine (ZANAFLEX) 4 mg tablet Take 1 tablet (4 mg total) by mouth every 8 (eight) hours if needed. 3 Active diclofenac (VOLTAREN) 1 % topical gel Apply 4 g topically. 2 Active potassium gluconate 2.5 mEq tablet Take 1 tablet by mouth 1 (one) time each day. Active blood-glucose meter kit 1 Kit by Does not apply route daily. DX E11.9 FREESTYLE LITE GLUCOMETER - Does not apply Active magnesium oxide 400 mg magnesium capsule Take 400 mg by mouth. Active Alcohol Prep Pads pads, medicated USE TOPICALLY TWICE DAILY 4 Active FreeStyle Lancets 28 gauge lancets USE TO CHECK BLOOD SUGAR TWICE DAILY NEEDED 4 Active diphenhydramine- aluminum-magnesi vw-kvswrkghuam-q idocaine (MAGIC MOUTHWASH) [phone] 0 mg/30 mL liquid suspensionIndica tions:Sore throat Use 10 mL in the mouth or throat 4 (four) times a day. 280 mL 4 Active vitamin B complex-folic acid (B Complex 1, with folic acid,) 0.4 mg tablet Take 1 tablet by mouth 1 (one) time each day. Active tirzepatide (Mounjaro) 5 mg/0.5 mL injection Inject 0.5 mL (5 mg total) under the skin every 7 (seven) days. 4 Active omega 5-vrb-lar-fish oil (Fish OiL) 1,200 (144-216) mg capsule Take 1 capsule by mouth 1 (one) time each day. 4 Active meloxicam (MOBIC) 15 mg tablet TAKE 1 TABLET BY MOUTH DAILY WITH FOOD NEEDED FOR PAIN 30 tablet 2 5 Active tirzepatide (MOUNJARO) 7.5 mg/0.5 mL injection Inject 0.5 mL (7.5 mg total) under the skin every 7 (seven) days. Active omeprazole (PriLOSEC) [address] capsuleIndicatio ns:Gastroesophag eal reflux disease, unspecified whether esophagitis present Take 1 capsule (20 mg total) by mouth 1 (one) time each day. Do not crush or chew. 30 each 5 Active mometasone (NASONEX) 50 mcg/actuation nasal spray Administer 2 sprays into each nostril 1 (one) time each day. 17 g 5 5 01/04/20 26 Active Active Problems Problem Noted Date Diagnosed Date DM type 2 (diabetes mellitus , type 2) ([facility] V24, [facility] V28) 10/17/2021 Obesity (BMI 30-39.9) 10/14/2021 GERD (gastroesophageal reflux disease) Hepatic steatosis 10/14/2021 Hyperlipidemia Encounters Date Type Department Care Team Description 01/02/2025 Telephone Internal Medicine - [place] [address] [facility] [address] [place] [phone] Janett Lopez PA Med Refill 11/30/2024 11:30 AM EDT Office Visit Walk-In Clinic - [address] [phone] Crescencio Chatman PA Acute cystitis without hematuria (Primary Dx); Gastroesophageal reflux disease without esophagitis 11/30/2024 Telephone Internal Medicine - [place] [address] [facility] [address] [place] [phone] Janett Lopez PA Medication Problem 11/08/2024 3:15 PM EST Office Visit Orthopedic Surgery [facility] [address] [facility] [address] [place] [phone] Guillermina Barahona PA Bilateral carpal tunnel syndrome (Primary Dx) from Last 3 Months Immunizations Name Administration Dates Next Due Hepatitis B ([place]-T-Ssvzv , Recombivax HB-Adult) 19yo and older 04/16/2024 Surgical History Surgery Date Site/Laterality Comments TUBAL LIGATION PROCEDURE: HISTORICAL TUBAL LIGATION; COMMENT: around age 39 OTHER SURGICAL HISTORY PROCEDURE: IA DILATION & CURETTAGE DX&/THER NONOBSTETRIC; COMMENT: due ectopic around age 39 CHOLECYSTECTOMY 08/02/2021 PROCEDURE: IA LAPAROSCOPY SURG CHOLECYSTECTOMY; COMMENT: due cholelithiasis done at [facility] Medical History Medical History Date Comments Obesity (BMI 30-39.9) DX:Obesity (BMI 30-39.9) GERD (gastroesophageal reflux disease) DX:GERD (gastroesophageal reflux disease) Hepatic steatosis DX:Hepatic sherri atosis DM type 2 (diabetes mellitus , type 2) (CMS/HCC V24, CMS/HCC V28) DX:DM type 2 (diabetes manasa itus, type 2) (HCC) Hyperlipidemia Family History Medical History Relation Name Comments Diabetes Brother 1 Diabetes Father Heart attack Father Hypertension Father Arthritis Maternal Grandmother Diabetes Mother Relation Name Status Comments Brother 1 Alive Brother 2 Alive Father Maternal Grandmother Mother Social History Tobacco Use Types Packs/Day Years Used Date Smoking Tobacco: Never Smokeless Tobacco: Never Tobacco Cessation:Counseling Given: Not Answered Alcohol Use Standard Drinks/Week Comments Not Currently 0 (1 standard drink = 0.6 oz pur e alcohol) Comments Unknown Sex and Gender Information Value Date Recorded Sex Assigned at Not on file Legal Sex Female 5:44 AM EST Gender Identity Not on file Sexual Orientation Not on file 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 Not on file Not on file Obstetrics History Last Filed Vital Signs Vital Sign Reading Time Taken Comments Blood Pressure 114/68 11/30/2024 11:15 AM EDT Pulse 73 11/30/2024 11:15 AM EDT Temperature 36.1 ??C (97 ??F) 11/30/2024 11:15 AM EDT Respiratory Rate 18 07/07/2024 8:25 AM EST Oxygen Saturation 97% 11/30/2024 11:15 AM EDT Inhaled Oxygen Concentration - - Weight 57.6 kg (127 lb) 10/10/2024 11:27 AM EST Height 152.4 cm (5') 07/31/2024 10:23 AM EST Body Mass Index 24.8 07/31/2024 10:23 AM EST Plan of Treatment Upcoming Encounters Date Type Department Care Team (Late st Contact Info) Description 01/20/2025 3:30 PM EDT Office Visit Internal Medicine - [place] [facility] [address] [place] [phone] Janett Lopez PA [address] [facility] [place] [address] [place] [address] Health Maintenance Due Date Last Done Comments Breast Cancer Screening 1971 Diabetes: Annual Foot Exam 1981 DTaP,Tdap,and Td Vaccines (1 - Tdap) 1990 Pneumococcal Vaccine: 50+ Years (1 of 2 - PCV) 1990 Pneumococcal Vaccine: Pediatrics (0 to 5 Years) and At-Risk Patients (6 to 64 Years) (1 of 2 - PCV) 1990 Zoster Vaccines (1 of 2) 2021 Colorectal Cancer Screening: Colonoscopy 08/14/2022 HIV Screening 08/14/2022 Hepatitis C Screening 08/14/2022 Social Influencers of Health Screening 08/14/2022 Diabetes: Blood Sugar Control Test (HGBA1C) 03/22/2024 09/22/2023 Diabetes: Annual Urine Albumin-Creatinine Ratio (uACR) 03/29/2024 03/29/2023 COVID-19 Vaccine ( season) 2024 08/13/2023, 07/02/2022, 08/25/2021, Additional history exists Hepatitis B Vaccines (2 of 3 - 19+ 3-dose series) 05/14/2024 04/16/2024 Diabetes: Annual GFR (Glomerular Filtration Rate) 09/22/2024 09/22/2023 Diabetes: Annual Retina Eye Exam 03/27/2025 03/27/2024 Influenza Vaccine (Season Ended) 2025 08/13/2023, 05/25/2022 Depression Screening 10/05/2025 10/05/2024 Cervical Cancer Screening: HPV 12/03/2027 12/02/2022 Cholesterol Screening (Lipid Panel) 09/22/2028 09/22/2023 HIB Vaccines Aged Out No longer eligi ble based on patient's age to complete this topic HPV Vaccines Aged Out No longer eligi ble based on patient's age to complete this topic Hepatitis A Vaccines Aged Out No long er eligible based on patient's age to complete this topic IPV Vaccines Aged Out No longer eligi ble based on patient's age to complete this topic MMR Vaccines Aged Out No longer eligi ble based on patient's age to complete this topic Meningococcal ACWY Vaccine Aged Out N o longer eligible based on patient's age to complete this topic Meningococcal B Vaccine Aged Out No l onger eligible based on patient's age to complete this topic RSV Immunization Patients Under 20 months Aged Out No longer eligible based on patient's age to complete this topic Varicella Vaccines Aged Out No longer eligible based on patient's age to complete this topic Procedures Procedure Name Priority Date/Time Associated Diagnosis Comments CULTURE URINE Routine 11/30/2024 1:24 PM EDT Acute cystitis without hematuria POC URINE NON-AUTO W/O MICRO Routine 11/30/2024 11:37 AM EDT Acute cystitis without hematuria IA INJECTION CARPAL TUNNEL THERAPEUTIC Routine 11/08/2024 3:15 PM EST Bilateral carpal tunnel syndrome HM DIABETES EYE EXAM Routine 03/27/2024 ANNUAL BMP BLOOD TEST Routine 09/22/2023 HEMOGLOBIN A1C Routine 09/22/2023 LIPID PANEL Routine 09/22/2023 URINE ALBUMIN CREATININE RATIO Routine 03/29/2023 HPV Routine 12/02/2022 from Last 3 Months or Most Recently Relevant to Health Maintenance Results * (ABNORMAL) Culture urine (11/30/2024 1:24 PM EDT) Culture, Urine >100,000 CFU/mL Escherichia coli(A) SANJAY 12/02/2024 11:18 AM EDT [facility] Urine Urine specimen obtained by clean catch procedure / Unknown Non-blood Collection / Unknown 11/30/2024 1:24 PM EDT 11/30/2024 1:24 PM EDT Narrative Organism Antibiotic Method Susceptibility Escherichia coli Amoxicillin/Clavulanate SANJAY <=2 ug/ml: Susceptible Escherichia coli Ampicillin/Sulbactam SANJAY <=2 ug/ml: Susceptible Escherichia coli Piperacillin/Tazobactam SANJAY <=4 ug/ml: Susceptible Escherichia coli Cefazolin (Urine) SANJAY <=1 ug/ml: Susceptible Escherichia coli Cefoxitin SANJAY 8 ug/ml: Susceptible Escherichia coli Ceftazidime SANJAY <=0.5 ug/ml: Susceptible Escherichia coli Ceftriaxone SANJAY <=0.25 ug/ml: Susceptible Escherichia coli Cefepime SANJAY <=0.12 ug/ml: Susceptible Escherichia coli Meropenem SANJAY <=0.25 ug/ml: Susceptible Escherichia coli Amikacin SANJAY 4 ug/ml: Susceptible Escherichia coli Gentamicin SANJAY <=1 ug/ml: Susceptible Escherichia coli Ciprofloxacin SANJAY <=0.06 ug/ml: Susceptible Escherichia coli Levofloxacin SANJAY <=0.12 ug/ml: Susceptible Escherichia coli Nitrofurantoin SANJAY <=16 ug/ml: Susceptible Escherichia coli Trimethoprim/Sulfamethoxazole SANJAY <=20 ug/ml: Susceptible Crescencio GÓMEZ LAB MICROBIOLOGY - GENERAL ORDER ESTELLA Final Result [facility] [address] [place] [address], * (ABNORMAL) POC Urine Non-Auto W/O Micro (11/30/2024 11:37 AM EDT) Glucose UA POC Negative Negative, Trace mg/dL Leukocytes UA POC 2+(A) Negative Nitrite UA POC Positive(A) Negative Urobilinogen UA POC 0.2 E.U./dL mg/dL Protein UA POC 1+(A) Negative, >=300 mg/dL PH UA POC 5.0 Blood UA POC 1+(A) Negative, Large Specific [place] UA POC 1.020 Ketones UA POC Negative Negative, Trace Bilirubin UA POC Negative Negative, Small Appearance UA POC Cloudy Color UA POC Yellow Comment:straw Urine Urine specimen obtained by clean catch procedure / Unknown 11/30/2024 11:37 AM EDT Crescencio GÓMEZ POINT OF CARE TEST ENTER/EDIT OR DERABLES Final Result * IA INJECTION CARPAL TUNNEL THERAPEUTIC (11/08/2024 3:15 PM EST) Narrative Guillermina Barahona PA - 11/08/2024 3:15 PM EST RICO Valenzuela ? 11/08/2024 ??4:04 PM Hand / UE Inj/Asp: bilateral carpal tunnel for carpal tunnel syndrome Details: 25 G needle, volar approach Medications (Right): 0.5 mL lidocaine 1 %; 20 mg triamcinolone acetonide 40 mg/mL Medications (Left): 0.5 mL lidocaine 1 %; 20 mg triamcinolone acetonide 40 mg/mL Informed Consent: ??Laterality: ??Left ??Relevant images/test results available and reviewed: yes ?Health status cleared: ??Yes ??Procedure/treatment, purpose, treatment alternatives, risks/potential complications and benefits explained: yes ?Risk/complications/benefits details: ??Risks of infection, thinning of the skin and temporary skin discoloration discussed. ??Discussed risks of temporary increased pain after injection and swelling and mild redness at injection site for couple days. ??Explained occasionally cortisone injection can cause facial flushing temporarily. ??Benefits pain management. ??For postop injection pain ice, Tylenol and/or NSAIDs if patient can take ??Patient questions answered: yes ?Patient agrees, verbalizes understanding, and wants to proceed: yes ?Consent given by: ??Patient ??Informed consent discussion completed by Physician/ALEX with patient: ?? Verbal ??Pre-procedure timeout performed: yes ?? Result [facility] Guillermina GÓMEZ IN CLINIC/BEDSIDE ORDERABLES Final Result * Diabetes Eye Exam (03/27/2024) [facility] Diabetes: Annual Retina Eye Exam Abstracted Result [facility] Provider HEALTH MAINTENANCE Final Result * Annual BMP Blood Test (09/22/2023) [facility] Annual BMP Blood Test Abstracted Result [facility] HEALTH MAINTENANCE Final Result * Hemoglobin A1c (09/22/2023) [facility] Hemoglobin A1C 6.1 <=6.5 % Blood Venous blood specimen / Unknown Result [facility] Provider LAB BLOOD ORDERABLES Edilia l Result * (ABNORMAL) Lipid panel (09/22/2023) [facility] LDL/HDL Ratio 4 0 - 4 Triglycerides 129 0 - 150 mg/dL Cholesterol 263(A) 0 - 200 mg/dL HDL 69 >=40 mg/dL LDL Cholesterol 169(A) 0 - 100 mg/dL Blood Venous blood specimen / Unknown us Historical Provider LAB BLOOD ORDERABLES Edilia l Result * Urine Albumin Creatinine Ratio (03/29/2023) Urine Albumin Creatinine Ratio Abstracted Historical Provider HEALTH MAINTENANCE Final Result * Cervical Cancer Screening: HPV (12/02/2022) Pathologist [facility] Cervical Cancer Screening: HPV Abstracted, Negative Historical Provider HEALTH MAINTENANCE Final Result from Last 3 Months or Most Recently Relevant to Health Maintenance [place] [address] [place] [address] Care Teams Wellness Program Administrator Relationship Specialty Start Date End Date Janett Lopez PA [address] [place] [address] PCP - General Internal Medicine 10/21/21
--- OUTSIDE RECORDS SUMMARY | 2025-01-08 15:47 | XMS_ITS ---
Author Organization [facility] Address [address] [place] [address] Care Team Providers Care Taxicab Coordinator Name Role Phone JONATAN MOISE Unavailable [phone] ALLERGIES Allergen (clinical drug ingredient) Drug/Non Drug Allergy documented on EMR Reaction Allergy Type Onset Date Status Iodine hives Drug Allergy Active shrimp allergenic extract Shrimp (Diagnostic) Unknown Drug Allergy Active REASON FOR VISIT Pt here for wt mgt f/u. SECA done. Today's weight is 123. No complaints MEDICATIONS Medication SIG (Take, Route, Frequency, Duration) Notes Start Date End Date Status Linzess 145 MCG 1 capsule at least 3 0 minutes before the first meal of the day on an empty stomach Orally Once a day for 30 days 11/23/2024 Active B Complex Active Levocetirizine Dihydrochloride 5 MG 1 tablet in the evening Orally Once a day Active Potassium Active Mounjaro 7.5 MG/0.5ML 7.5mg, DX E11.9 Ty pe 2 DM Subcutaneous weekly for 30 days Active Omeprazole Active Melatonin Active Mounjaro 5 MG/0.5ML 5mg Subcutaneous wee kly for 28 days 06/22/2024 Active Benzonatate Active Meloxicam Active Vitamin D Active Magnesium 250 MG 1 capsule Orally Onc e a day Active SOCIAL HISTORY Tobacco Use: Social History Observation Description Date Details (start date - stop date) Never Smoker NA - NA Sex Assigned At : Social History Observation Description Sex Assigned At Unknown Tobacco Use/Smoking Question Answer Notes Are you a nonsmoker Section Notes: - PROBLEMS Problem Type ICD Code Onset Dates Problem Status W/U Status Risk SNOMED Code Notes Problem Irritable bowel syndrome with constipation (K58.1) Active confirmed 801762811 VITAL SIGNS Blood pressure systolic 104 mm Hg 11/24/19 25 Blood pressure diastolic 68 mm Hg 025 Heart Rate 66 /min 11/23/2024 Height 60 in 11/23/2024 Weight 123 lbs 11/23/2024 BMI 24.02 kg/m2 11/23/2024 Oximetry 95 % 11/23/2024 Encounters Encounter Location Date Provider Diagnosis [facility] [address] [place] [address] 11/23/2024 JONATAN MOISE Type 2 diabetes mellitus without complication, without long-term current use of insulin E11.9 ; BMI 24.0-24.9, adult Z68.24 ; Dietary counseling and surveillance Z71.3 and Irritable bowel syndrome with constipation K58.1 ASSESSMENTS Encounter Date Diagnosis Assessment Notes Treatment Notes Treatment Clinical Notes Section Notes 11/23/2024 Type 2 diabetes mellitus without complication, [...] software and direct typing Please excuse inadvertent director of engineering or typing errors, or uncorrected word substitutions Although every attempt has been made by the provider to proofread this document, occasional misspellings and typographical errors may still be present Due to the previous pandemic, and the use of personal protective equipment (PPE) This may decrease voice recognition accuracy Inadvertent director of engineering errors may occur 11/23/2024 BMI 24.0-24.9, adult [...] software and direct typing Please excuse inadvertent director of engineering or typing errors, or uncorrected word substitutions Although every attempt has been made by the provider to proofread this document, occasional misspellings and typographical errors may still be present Due to the previous pandemic, and the use of personal protective equipment (PPE) This may decrease voice recognition accuracy Inadvertent director of engineering errors may occur 11/23/2024 Dietary counseling and [...] software and direct typing Please excuse inadvertent director of engineering or typing errors, or uncorrected word substitutions Although every attempt has been made by the provider to proofread this document, occasional misspellings and typographical errors may still be present Due to the previous pandemic, and the use of personal protective equipment (PPE) This may decrease voice recognition accuracy Inadvertent director of engineering errors may occur 11/23/2024 Irritable bowel syndrome [...] software and direct typing Please excuse inadvertent director of engineering or typing errors, or uncorrected word substitutions Although every attempt has been made by the provider to proofread this document, occasional misspellings and typographical errors may still be present Due to the previous pandemic, and the use of personal protective equipment (PPE) This may decrease voice recognition accuracy Inadvertent director of engineering errors may occur PLAN OF TREATMENT Medication Medication Name Sig Start Date Stop Date Notes Linzess 145 MCG 1 capsule at least 3 0 minutes before the first meal of the day on an empty stomach Orally Once a day for 30 days 11/23/2024 Next Appt Details Provider Name:JONATAN MOISE, 01/18/2025 11:00:00 AM, [address], [place], [address], Progress Notes * Annia CORDOVADOB: [birth year] (54 yo F)Acc No.[id number]:11/23/2024 Patient:??TASHA Annia Provider:??JONATAN MOISE NP :1970?Age:54 Y?Sex:Fe male Date:11/23/2024 Address:[address] [place] [address] [id number] Subjective: * Chief Complaints: * ?1. Pt here for wt mgt f/u. SECA done. Today's weight is 123. No complaints. * HPI: ?Constitutional:? Patient here today for a weight management followup visit ?Patient seen and examined. ? Full past medical history, social history, family history, ?allergies and current medications were reviewed and updated. ?Body composition analysis reviewed today ?#Weight Management ?11/23/2024 ?Discussed maintenance dosing moving forward ?Provided Linzess samples today ?reporting constipation, early satiety, apettite suppresion ?Starting to incorporate strength resistance training gym activities ?Last A1c indicating euglycemia at 5.4, down from over 9's, type 2 DM ?Closely approaching target goal weight ?on Mounjaro 7.5mg ?Injects Monday ?down additional 2 bs of fat mass ?Neuropathy was an obstacle to exercise tolerance, scheduled for foot surgery with [facility] ?ganglion removal left foot 12/2022 ?but pt reports it has been progressively getting better. ?Mild intermittent nausea, otherwise no side effects. ?Diet: nightime cravings are problematic, not counting calories ?Non-smoker. ?ETOH use: no ?11/23/2024, Weight 123lbs , BMI 24 (-3lbs) ?10/19/2024, Weight 126lbs , BMI 24.7 (-2lbs) ?09/14/2024, Weight 128lbs , BMI 25, (-5lbs) ?07/27/2024, Weight 133lbs , BMI 26 (-7lbs) ?06/22/2024, Weight 140lbs , BMI 27.5 (-5lbs) ?05/18/2024, Weight 145lbs , BMI 28 (+11lbs) ?05/24/23: Weight 134lbs, BMI 26 ?12/07/22 Weight 131lbs, BMI 25, (-4lbs) ?09/26/22: Weight 135lbs, BMI, (-10lbs) ?07/21/22: Weight 145lbs, BMI 28, (-8lbs) ?06/15/22: Weight 153.55lb BM30 (-12lbs) ?05/10/2022: Weight 165 lbs, BMI 32 ?Patient works as unemployed, recently moved from [place] ?Highest weight: 165 lbs ?Lowest weight: 110lbs ?Goal weight: 115-120 lbs ?CASANDRA screening, refused. ?Metabolic workup: ?labs 07/2024 renal, lfts, lytes stable ?glucose 91 ?total chol 210, LDL 121, trigs 221, hdl 45, alk phos 77. * ROS:?All Other Systems:?Review of Systems (ROS)??All others negative except those mentioned in HPI.? * Medical History:??type II di abetes, Asthma, Headache, Kidney stones, Anxiety. * Surgical History:??cholecyst ectomy . * Family History:??Father: dec eased.??Mother: .??2 brother(s) - healthy. 2 son(s) , 1 daughter(s) - healthy. .?? * Social History:?Tobacco Use:??Tobacco Use/Smoking??Are you a??nonsmoker.?-. * Medications:??Taking Mounjar o 7.5 MG/0.5ML Solution Auto-injector 7.5mg, DX E11.9 Type 2 DM Subcutaneous weekly , Taking Potassium , Taking Levocetirizine Dihydrochloride 5 MG Tablet 1 tablet in the evening Orally Once a day , Taking B Complex , Taking Magnesium 250 MG Capsule 1 capsule Orally Once a day , Taking Vitamin D , Taking Meloxicam , Taking Benzonatate , Taking Melatonin , Taking Omeprazole , Taking Mounjaro 5 MG/0.5ML Solution Auto-injector 5mg Subcutaneous weekly , Medication List reviewed and reconciled with the patient * Allergies:??Iodine: hives, S hrimp (Diagnostic). Objective: * Vitals:??HR:66/min, BP:104/6 8mm Hg, Wt:123lbs, BMI:24.02Index, Ht: 60 in, Oxygen sat %:95%. * Examination: ?General Examination: ?GENERAL APPEARANCE:??in no acute distress, well developed, well nourished.??HEAD:??normocephalic, atraumatic.??EYES:??pupils equal, round, reactive to light and accommodation.??EARS:??normal.??ORAL CAVITY:??mucosa moist.??THROAT:??clear.??NECK/THYROID:??neck supple, full range of motion, no cervical lymphadenopathy.??SKIN:??no suspicious lesions, warm and dry.??HEART:??no murmurs, regular rate and rhythm, S1, S2 normal.??LUNGS:??clear to auscultation bilaterally.??ABDOMEN:??normal, bowel sounds present, soft, nontender, nondistended.??EXTREMITIES:??no clubbing, cyanosis, or edema.??NEUROLOGIC:??nonfocal, motor strength normal upper and lower extremities, sensory exam intact.? Assessment: * Assessment: 1.??Type 2 diabetes mellitus without complication, without long-term current use of insulin - E11.9??2.??BMI 24.0-24.9, adult - Z68.24??3.??Dietary counseling and surveillance - Z71.3??4.??Irritable bowel syndrome with constipation - K58.1?? #Weight Management 11/23/2024 Maintenance dosing discussed Trial [...] software and direct typing Please excuse inadvertent director of engineering or typing errors, or uncorrected word substitutions Although every attempt has been made by the provider to proofread this document, occasional misspellings and typographical errors may still be present Due to the previous pandemic, and the use of personal protective equipment (PPE) This may decrease voice recognition accuracy Inadvertent director of engineering errors may occur. Plan: * Treatment: * Images: Billing Information: * Visit Code:?? 61396 Office Visit, Est Pt., Level 4. Modifiers: 25, SA * Procedure Codes:?? * Sign off status: Completed true * Provider:??JONATAN MOISE NP Date:??11/03 History and Physical Notes * HPI (History of Present Illness) Category Sub-Category Detail Notes Category Not es Constitutional Patient here today for a weight management followup visit Patient seen and examined. Full past medical history, social history, family history, allergies and current medications were reviewed and updated. Body composition analysis reviewed today #Weight Management 11/23/2024 Discussed maintenance dosing moving forward Provided Linzess samples today reporting constipation, early satiety, apettite suppresion Starting to incorporate strength resistance training gym activities Last A1c indicating euglycemia at 5.4, down from over 9's, type 2 DM Closely approaching target goal weight on Mounjaro 7.5mg Injects Monday down additional 2 bs of fat mass Neuropathy was an obstacle to exercise tolerance, scheduled for foot surgery with [facility] ganglion removal left foot 12/2022 but pt reports it has been progressively getting better. Mild intermittent nausea, otherwise no side effects. Diet: nightime cravings are problematic, not counting calories Non-smoker. ETOH use: no 11/23/2024, Weight 123lbs , BMI 24 (-3lbs) 10/19/2024, Weight 126lbs , BMI 24.7 (-2lbs) 09/14/2024, Weight 128lbs , BMI 25, (-5lbs) 07/27/2024, Weight 133lbs , BMI 26 (-7lbs) 06/22/2024, Weight 140lbs , BMI 27.5 (-5lbs) 05/18/2024, Weight 145lbs , BMI 28 (+11lbs) 05/24/23: Weight 134lbs, BMI 26 12/07/22 Weight 131lbs, BMI 25, (-4lbs) 09/26/22: Weight 135lbs, BMI, (-10lbs) 07/21/22: Weight 145lbs, BMI 28, (-8lbs) 06/15/22: Weight 153.55lb BM30 (-12lbs) 05/10/2022: Weight 165 lbs, BMI 32 Patient works as unemployed, recently moved from [place] Highest weight: 165 lbs Lowest weight: 110lbs Goal weight: 115-120 lbs CASANDRA screening, refused. Metabolic workup: labs 07/2024 renal, lfts, lytes stable glucose 91 total chol 210, LDL 121, trigs 221, hdl 45, alk phos 77 Examination Category Sub-Category Detail Notes Category Not es General Examination GENERAL APPEARANCE: in no ac [place] distress, well developed, well nourished HEAD: normocephalic, [...]
--- OUTSIDE RECORDS SUMMARY | 2025-01-08 15:47 | XMS_ITS ---
Author Organization [facility] Address [address] [place] [address] Care Team Providers Care Lens Grinder And Polisher Name Role Phone ANDERSJONATAN LEBLANC Unavailable [phone] ALLERGIES Allergen (clinical drug ingredient) Drug/Non Drug Allergy documented on EMR Reaction Allergy Type Onset Date Status Iodine hives Drug Allergy Active shrimp allergenic extract Shrimp (Diagnostic) Unknown Drug Allergy Active REASON FOR VISIT Patient is here for weight management follow up MEDICATIONS Medication SIG (Take, Route, Frequency, Duration) Notes Start Date End Date Status Melatonin Active Benzonatate Active Omeprazole Active Mounjaro 5 MG/0.5ML 5mg Subcutaneous wee kly for 28 days 06/22/2024 Active Magnesium 250 MG 1 capsule Orally Onc e a day Active B Complex Active Meloxicam Active Vitamin D Active Levocetirizine Dihydrochloride 5 MG 1 tablet in the evening Orally Once a day Active Mounjaro 7.5 MG/0.5ML 7.5mg, DX E11.9 Ty pe 2 DM Subcutaneous weekly for 30 days Active Potassium Active SOCIAL HISTORY Tobacco Use: Social History Observation Description Date Details (start date - stop date) Never Smoker NA - NA Sex Assigned At : Social History Observation Description Sex Assigned At Unknown Tobacco Use/Smoking Question Answer Notes Are you a nonsmoker Section Notes: - VITAL SIGNS Blood pressure systolic 124 mm Hg 10/19/19 25 Blood pressure diastolic 84 mm Hg 025 Heart Rate 69 /min 10/19/2024 Height 60 in 10/19/2024 Weight 126.3 lbs 10/19/2024 BMI 24.66 kg/m2 10/19/2024 Oximetry 95 % 10/19/2024 Encounters Encounter Location Date Provider Diagnosis [facility] [address] [place] [address] 10/19/2024 JONATAN MOISE Type 2 diabetes mellitus without complication, without long-term current use of insulin E11.9 ; BMI 24.0-24.9, adult Z68.24 and Dietary counseling and surveillance Z71.3 ASSESSMENTS Encounter Date Diagnosis Assessment Notes Treatment Notes Treatment Clinical Notes Section Notes 10/19/2024 Type 2 diabetes mellitus without complication, [...] software and direct typing Please excuse inadvertent marking machine tender or typing errors, or uncorrected word substitutions Although every attempt has been made by the provider to proofread this document, occasional misspellings and typographical errors may still be present Due to the previous pandemic, and the use of personal protective equipment (PPE) This may decrease voice recognition accuracy Inadvertent marking machine tender errors may occur 10/19/2024 BMI 24.0-24.9, adult [...] software and direct typing Please excuse inadvertent marking machine tender or typing errors, or uncorrected word substitutions Although every attempt has been made by the provider to proofread this document, occasional misspellings and typographical errors may still be present Due to the previous pandemic, and the use of personal protective equipment (PPE) This may decrease voice recognition accuracy Inadvertent marking machine tender errors may occur 10/19/2024 Dietary counseling and [...] software and direct typing Please excuse inadvertent marking machine tender or typing errors, or uncorrected word substitutions Although every attempt has been made by the provider to proofread this document, occasional misspellings and typographical errors may still be present Due to the previous pandemic, and the use of personal protective equipment (PPE) This may decrease voice recognition accuracy Inadvertent marking machine tender errors may occur PLAN OF TREATMENT Medication Medication Name Sig Start Date Stop Date Notes Mounjaro 7.5 MG/0.5ML 7.5mg, DX E11.9 Ty pe 2 DM Subcutaneous weekly for 30 days Next Appt Details Provider Name:JONATAN MOISE, 01/18/2025 11:00:00 AM, [address], [place], [address], Progress Notes * Annia MONTELONGODOB: [birth year] (54 yo F)Acc No.[id number]:10/19/2024 Patient:??Annia MONTELONGO Provider:??JONATAN MOISE NP :1970?Age:54 Y?Sex:Fe male Date:10/19/2024 Address:[address] [place] [id number] Subjective: * Chief Complaints: * ?1. Patient is here for weight management follow up. * HPI: ?Constitutional:? Patient here today for a weight management followup visit ?Patient seen and examined. ? Full past medical history, social history, family history, ?allergies and current medications were reviewed and updated. ?Body composition analysis reviewed today ?#Weight Management ?10/19/2024 ?Starting to incorporate strength resistance training gym activities ?Last A1c indicating euglycemia at 5.4, down from over 9's, type 2 DM ?Closely approaching target goal weight ?reporting constipation, early satiety, apettite suppresion ?on Mounjaro 7.5mg x 1 week due to difficulty getting RX ?Injects Monday ?down additional 1 bs of fat mass ?Neuropathy was an obstacle to exercise tolerance, scheduled for foot surgery with [facility] ?ganglion removal left foot 12/2022 ?but pt reports it has been progressively getting better. ?Mild intermittent nausea, otherwise no side effects. ?Diet: nightime cravings are problematic, not counting calories ?Non-smoker. ?ETOH use: no ?10/19/2024, Weight 126lbs , BMI 24.7 (-2lbs) [...] ?Patient works as unemployed, recently moved from [place] ?Highest weight: 165 lbs ?Lowest weight: 110lbs [...] History:?Tobacco Use:??Tobacco Use/Smoking??Are you a??nonsmoker.?-. * Medications:??Taking Potassi um , Taking Levocetirizine Dihydrochloride 5 MG Tablet 1 tablet in the evening Orally Once a day , Taking B Complex , Taking Magnesium 250 MG Capsule 1 capsule Orally Once a day , Taking Vitamin D , Taking Meloxicam , Taking Benzonatate , Taking Melatonin , Taking Omeprazole , Taking Mounjaro 5 MG/0.5ML Solution Auto-injector 5mg Subcutaneous weekly , Taking Mounjaro 7.5 MG/0.5ML Solution Auto-injector 7.5mg Subcutaneous weekly , Notes to Pharmacist: E11.9Type 2 diabetes mellitus without complication, without long-term current use of insulin, Discontinued Mounjaro 2.5 MG/0.5ML Solution Pen-injector 2.5mg Subcutaneous weekly , Medication List reviewed and reconciled with the patient * Allergies:??Iodine: hives, S hrimp (Diagnostic). Objective: * Vitals:??HR:69/min, BP:124/8 4mm Hg, Wt:126.3lbs, BMI:24.66Index, Ht: 60 in, Oxygen sat %:95%. * [...] adult - Z68.24??3.??Dietary counseling and surveillance - Z71.3?? #Weight Management 10/19/2024 Continue 7.5 mg dosing [...] software and direct typing Please excuse inadvertent marking machine tender or typing errors, or uncorrected word substitutions Although every attempt has been made by the provider to proofread this document, occasional misspellings and typographical errors may still be present Due to the previous pandemic, and the use of personal protective equipment (PPE) This may decrease voice recognition accuracy Inadvertent marking machine tender errors may occur. Plan: * Treatment: * Procedure Codes:??10998 P/M RELIGIOUS EDUCATION COORDINATOR, INDIV 15 MIN * Images: Billing Information: * Visit Code:?? 37110 Office Visit, Est Pt., Level 4. Modifiers: SA * Procedure Codes:?? 92876 P/M RELIGIOUS EDUCATION COORDINATOR, INDIV 15 MIN. * Sign off status: Completed true * Provider:??JONATAN MOISE NP Date:??10/05 History and Physical Notes * HPI (History of Present Illness) Category Sub-Category Detail Notes Category Not es Constitutional Patient here today for a weight management followup visit Patient seen and examined. Full past medical history, social history, family history, allergies and current medications were reviewed and updated. Body composition analysis reviewed today #Weight Management 10/19/2024 Starting to incorporate strength resistance training gym activities Last A1c indicating euglycemia at 5.4, down from over 9's, type 2 DM Closely approaching target goal weight reporting constipation, early satiety, apettite suppresion on Mounjaro 7.5mg x 1 week due to difficulty getting RX Injects Monday down additional 1 bs of fat mass Neuropathy was an obstacle to exercise tolerance, scheduled for foot surgery with [facility] ganglion removal left foot 12/2022 but pt reports it has been progressively getting better. Mild intermittent nausea, otherwise no side effects. Diet: nightime cravings are problematic, not counting calories Non-smoker. ETOH use: no 10/19/2024, Weight 126lbs , BMI 24.7 (-2lbs) [...] Patient works as unemployed, recently moved from [place] Highest weight: 165 lbs Lowest weight: 110lbs [...]
--- OUTSIDE RECORDS SUMMARY | 2025-01-08 15:47 | XMS_ITS | Encounter Summary ---
Author Organization [facility] Address [address] [place] [address] Care Team Providers Care Auto Body Customizer Name Role Phone Janett Lopez Primary Care Provider + Reason for Visit * Reason Onset Date Comments Med Refill 01/02/2025 Encounter Details Date Type Department Care Team (Late st Contact Info) Description 01/02/2025 Telephone Internal Medicine - [place] [address] [place] [id number] Janett Lopez PA [address] [place] [address] Med Refill Social History Tobacco Use Types Packs/Day Years Used Date Smoking Tobacco: Never Smokeless Tobacco: Never Alcohol Use Standard Drinks/Week Comments Not Currently [...] file Not on file Not on file documented as of this encounter Ordered Prescriptions Prescription Sig Dispense Quantity Refills Last Filled Start Date End Date mometasone (NASONEX) 50 mcg/actuation nasal spray Administer 2 sprays into each nostril 1 (one) time each day. 17 g 5 01/03/2025 documented in this encounter Progress Notes * Lexie Vital MA - 01/02/2025 3:25 PM EDT Not active on med list please advise * Karon Marion - 01/02/2025 1:56 PM EDT Patient requested a refill for Mometasone furoate nasal spray for allergies documented in this encounter Plan of Treatment Upcoming Encounters Date Type Department Care Team (Late st Contact Info) Description 01/20/2025 3:30 PM EDT Office Visit Internal Medicine - [place] [address] [address] Janett Lopez PA [address] [address] documented as of this encounter Visit Diagnoses Not on filedocumented in this encounter Additional Health Concerns Assessment Noted Time PHQ-9 Depression Total Score: 0 10/05/19 25 10:26 AM EST documented as of this encounter Care Teams Auto Body Customizer Relationship Specialty Start Date End Date Janett Lopez PA [address] [place] [address] PCP - General Internal Medicine 10/21/21 documented as of this encounter
== END 2025-01-08 15:43 | disposition home or self-care (01) ==
PROVIDERS: PCP Internal Medicine; Visit Provider Physician Assistant
DX: H69.92 Unspecified Eustachian tube disorder, left ear (principal)

== ENCOUNTER → 2025-01-08 14:40 | Outpatient (BNVA) | payer OTHER, SELFPAY | PROVIDERS: PCP Internal Medicine | DX: H69.92 Unspecified Eustachian tube disorder, left ear (principal) | CPT/HCPCS: 99212 ==

== ENCOUNTER 2025-06-02 07:00 | Outpatient (AMB) | payer OTHER, SELFPAY ==
--- OUTSIDE RECORDS SUMMARY | 2025-06-02 07:02 | XMS_ITS | Patient Health Record ---
[facility] Address [address] [place] [address] Care Team Providers Care Resistor Inspector Name Role Phone JONATAN MOISE Unavailable [phone] Allergies Allergen (clinical drug ingredient) Drug/Non Drug Allergy documented on EMR Reaction Allergy Type Onset Date Status Iodine hives Drug Allergy Active shrimp allergenic extract Shrimp (Diagnostic) Unknown Drug Allergy Active Reason For Referral No Information Medications Medication SIG (Take, Route, Frequency, Duration) Notes Start Date End Date Status Mounjaro 5 MG/0.5ML 5mg Subcutaneous wee kly; Duration: 28 days Active Magnesium 250 MG 1 capsule Orally Onc e a day Active Contrave 8-90 MG Week 1, take 1 table t in the morning Week 2 take 1 tablet in the morning, 1 tablet in the evening Week 3 take 2 tablets in the morning, 1 tablet in the evening Week 4 onward 2 tablets in the morning, 2 tablets in the evening Orally twice a day; Duration: 30 days Active Meloxicam Active Linzess 145 MCG 1 capsule at least 3 0 minutes before the first meal of the day on an empty stomach Orally Once a day; Duration: 30 days Active Benzonatate Active Melatonin Active Omeprazole Active Potassium Active Levocetirizine Dihydrochloride 5 MG 1 tablet in the evening Orally Once a day Active B Complex Active Social History Tobacco Use: Social History Observation Description Date Details (start date - stop date) Never Smoker NA - NA Tobacco Use/Smoking Question Answer Notes Are you a nonsmoker Alcohol Screen (Audit-C) Question Answer Notes Did you have a drink containing alcohol in the p ast year? No Points 0 Interpretation Negative Section Notes: - - - - - - - - - - - Problems Problem Type SNOMED Code ICD Code Onset Dates Problem Status W/U Status Risk Notes Problem Obesity due to excess calories (317977190) Other obesity due to excess calories (E66.09) Active confirmed Problem Irritable bowel syndrome characterized by constipation (504837451) Irritable bowel syndrome with constipation (K58.1) Active confirmed Problem Type II diabetes mellitus without complication (319398556) Type 2 diabetes mellitus without complication, without long-term current use of insulin (E11.9) Active confirmed Problem Body mass index 30.00 to 34.99 (025617174242138) Body mass index [BMI] 32.0-32.9, adult (Z68.32) Active confirmed Problem Body mass index 30+ - obesity (474577141) BMI 30.0-30.9,adult (Z68.30) Active confirmed Problem Overweight (844379561) Overweight (BMI 25.0-29.9) (E66.3) Active confirmed Vital Signs Heart Rate 71 /min 04/12/2025 Oximetry 98 % 04/12/2025 Blood pressure diastolic 84 mm Hg 04/12/2025 Height 60 in 04/12/2025 Blood pressure systolic 126 mm Hg 04/12/2025 Weight 121.7 lbs 04/12/2025 BMI 23.77 kg/m2 04/12/2025 Encounters Encounter Location Date Provider Diagnosis [facility] [address] [place], [place] 06/22/2024 JONATAN MOISE Overweight (BMI 25.0-29.9) E66.3 ; BMI 27.0-27.9,adult Z68.27 ; Type 2 diabetes mellitus without complication, without long-term current use of insulin E11.9 and Dietary counseling and surveillance Z71.3 [facility] [address] [place], [place] 07/27/2024 JONATAN MOISE BMI 26.0-26.9,adult Z68.26 ; Overweight (BMI 25.0-29.9) E66.3 ; Dietary counseling and surveillance Z71.3 and Type 2 diabetes mellitus without complication, without long-term current use of insulin E11.9 [facility] [address] [place], [place] 09/14/2024 JONATAN MOISE BMI 25.0-25.9,adult Z68.25 ; Overweight (BMI 25.0-29.9) E66.3 ; Dietary counseling and surveillance Z71.3 and Type 2 diabetes mellitus without complication, without long-term current use of insulin E11.9 [facility] [address] [place] [address] 10/19/2024 JONATAN MOISE Type 2 diabetes manasa itus without complication, without long-term current use of insulin E11.9 ; BMI 24.0-24.9, adult Z68.24 and Dietary counseling and surveillance Z71.3 [facility] [address] [place], [place] 11/23/2024 JONATAN MOISE Type 2 diabetes manasa itus without complication, without long-term current use of insulin E11.9 ; BMI 24.0-24.9, adult Z68.24 ; Dietary counseling and surveillance Z71.3 and Irritable bowel syndrome with constipation K58.1 [facility] [address] [address] 01/17/2025 JONATAN MOISE Type 2 diabetes manasa itus without complication, without long-term current use of insulin E11.9 ; BMI 24.0-24.9, adult Z68.24 ; Dietary counseling and surveillance Z71.3 and Irritable bowel syndrome with constipation K58.1 [facility] [address] [place] [address] 02/22/2025 JONATAN MOISE Type 2 diabetes manasa itus without complication, without long-term current use of insulin E11.9 ; Dietary counseling and surveillance Z71.3 ; Irritable bowel syndrome with constipation K58.1 ; Encounter for examination of blood pressure without abnormal findings Z01.30 and BMI 23.0-23.9, adult Z68.23 [facility] [address] [place] [address] 04/12/2025 JONATAN RENEET Type 2 diabetes manasa itus without complication, without long-term current use of insulin E11.9 ; Dietary counseling and surveillance Z71.3 ; BMI 23.0-23.9, adult Z68.23 ; Irritable bowel syndrome with constipation K58.1 and Encounter for examination of blood pressure without abnormal findings Z01.30 [facility] [address] [address] 09/18/2024 JONATAN MOISE Overweight (BMI 25.0-29.9) E66.3 Assessments Encounter Date Diagnosis (ICD Code) Assessment Notes Treatment Notes Treatment Clinical Notes Section Notes 02/22/2025 Type 2 diabetes mellitus without complication, without long-term current use of insulin (ICD-10 - E11.9) #Weight Management 02/22/2025 Maintenance dosing discussed Decrease dosing by 50% I do not want to see any further weight loss 5 mg every 2 weeks Contrave continue PRN Linzess Started incorporating strength and resistance training [...] software and direct typing Please excuse inadvertent administrative aide or typing errors, or uncorrected word substitutions Although every attempt has been made by the provider to proofread this document, occasional misspellings and typographical errors may still be present Due to the previous pandemic, and the use of personal protective equipment (PPE) This may decrease voice recognition accuracy Inadvertent administrative aide errors may occur 04/12/2025 Type 2 diabetes mellitus without complication, without long-term current use of insulin (ICD-10 - E11.9) #Weight Management 04/12/2025 Continue maintenance dosing Thriving Constipation seems to be improving with Linzess Started incorporating strength and resistance training euglycemic Time spent today was 30 minutes, [...] software and direct typing Please excuse inadvertent administrative aide or typing errors, or uncorrected word substitutions Although every attempt has been made by the provider to proofread this document, occasional misspellings and typographical errors may still be present Due to the previous pandemic, and the use of personal protective equipment (PPE) This may decrease voice recognition accuracy Inadvertent administrative aide errors may occur 11/23/2024 Type 2 diabetes mellitus without complication, without long-term current use of insulin (ICD-10 - E11.9) #Weight Management 11/23/2024 Maintenance dosing discussed Trial Rohits Started incorporating strength and resistance training Body [...] software and direct typing Please excuse inadvertent administrative aide or typing errors, or uncorrected word substitutions Although every attempt has been made by the provider to proofread this document, occasional misspellings and typographical errors may still be present Due to the previous pandemic, and the use of personal protective equipment (PPE) This may decrease voice recognition accuracy Inadvertent administrative aide errors may occur 10/19/2024 Type 2 diabetes [...] software and direct typing Please excuse inadvertent administrative aide or typing errors, or uncorrected word substitutions Although every attempt has been made by the provider to proofread this document, occasional misspellings and typographical errors may still be present Due to the previous pandemic, and the use of personal protective equipment (PPE) This may decrease voice recognition accuracy Inadvertent administrative aide errors may occur 09/14/2024 BMI 25.0-25.9,adult (ICD-10 - Z68.25) #Weight [...] software and direct typing Please excuse inadvertent administrative aide or typing errors, or uncorrected word substitutions Although every attempt has been made by the provider to proofread this document, occasional misspellings and typographical errors may still be present Due to the previous pandemic, and the use of personal protective equipment (PPE) This may decrease voice recognition accuracy Inadvertent administrative aide errors may occur 09/18/2024 Overweight (BMI 25.0-29.9) (ICD-10 - E66.3) 07/27/2024 BMI 26.0-26.9,adult (ICD-10 - Z68.26) #Weight [...] software and direct typing Please excuse inadvertent administrative aide or typing errors, or uncorrected word substitutions Although every attempt has been made by the provider to proofread this document, occasional misspellings and typographical errors may still be present Due to the previous pandemic, and the use of personal protective equipment (PPE) This may decrease voice recognition accuracy Inadvertent administrative aide errors may occur 01/17/2025 Type 2 diabetes mellitus without complication, without long-term current use of insulin (ICD-10 - E11.9) #Weight Management 01/17/2025 Maintenance dosing discussed Adding on Contrave samples provided PRN Linzess Started incorporating strength and resistance training [...] software and direct typing Please excuse inadvertent administrative aide or typing errors, or uncorrected word substitutions Although every attempt has been made by the provider to proofread this document, occasional misspellings and typographical errors may still be present Due to the previous pandemic, and the use of personal protective equipment (PPE) This may decrease voice recognition accuracy Inadvertent administrative aide errors may occur 06/22/2024 BMI 27.0-27.9,adult (ICD-10 - Z68.27) #Weight [...] software and direct typing Please excuse inadvertent administrative aide or typing errors, or uncorrected word substitutions Although every attempt has been made by the provider to proofread this document, occasional misspellings and typographical errors may still be present Due to the previous pandemic, and the use of personal protective equipment (PPE) This may decrease voice recognition accuracy Inadvertent administrative aide errors may occur 06/22/2024 Overweight (BMI 25.0-29.9) [...] software and direct typing Please excuse inadvertent administrative aide or typing errors, or uncorrected word substitutions Although every attempt has been made by the provider to proofread this document, occasional misspellings and typographical errors may still be present Due to the previous pandemic, and the use of personal protective equipment (PPE) This may decrease voice recognition accuracy Inadvertent administrative aide errors may occur 06/22/2024 Type 2 diabetes [...] software and direct typing Please excuse inadvertent administrative aide or typing errors, or uncorrected word substitutions Although every attempt has been made by the provider to proofread this document, occasional misspellings and typographical errors may still be present Due to the previous pandemic, and the use of personal protective equipment (PPE) This may decrease voice recognition accuracy Inadvertent administrative aide errors may occur 01/17/2025 BMI 24.0-24.9, adult (ICD-10 - Z68.24) #Weight Management 01/17/2025 Maintenance dosing discussed Adding on Contrave samples provided PRN Linzess Started incorporating strength and resistance training [...] software and direct typing Please excuse inadvertent administrative aide or typing errors, or uncorrected word substitutions Although every attempt has been made by the provider to proofread this document, occasional misspellings and typographical errors may still be present Due to the previous pandemic, and the use of personal protective equipment (PPE) This may decrease voice recognition accuracy Inadvertent administrative aide errors may occur 07/27/2024 Overweight (BMI 25.0-29.9) [...] software and direct typing Please excuse inadvertent administrative aide or typing errors, or uncorrected word substitutions Although every attempt has been made by the provider to proofread this document, occasional misspellings and typographical errors may still be present Due to the previous pandemic, and the use of personal protective equipment (PPE) This may decrease voice recognition accuracy Inadvertent administrative aide errors may occur 09/14/2024 Dietary counseling and [...] software and direct typing Please excuse inadvertent administrative aide or typing errors, or uncorrected word substitutions Although every attempt has been made by the provider to proofread this document, occasional misspellings and typographical errors may still be present Due to the previous pandemic, and the use of personal protective equipment (PPE) This may decrease voice recognition accuracy Inadvertent administrative aide errors may occur 07/27/2024 Dietary counseling and [...] software and direct typing Please excuse inadvertent administrative aide or typing errors, or uncorrected word substitutions Although every attempt has been made by the provider to proofread this document, occasional misspellings and typographical errors may still be present Due to the previous pandemic, and the use of personal protective equipment (PPE) This may decrease voice recognition accuracy Inadvertent administrative aide errors may occur 09/14/2024 Overweight (BMI 25.0-29.9) [...] software and direct typing Please excuse inadvertent administrative aide or typing errors, or uncorrected word substitutions Although every attempt has been made by the provider to proofread this document, occasional misspellings and typographical errors may still be present Due to the previous pandemic, and the use of personal protective equipment (PPE) This may decrease voice recognition accuracy Inadvertent administrative aide errors may occur 10/19/2024 BMI 24.0-24.9, adult [...] software and direct typing Please excuse inadvertent administrative aide or typing errors, or uncorrected word substitutions Although every attempt has been made by the provider to proofread this document, occasional misspellings and typographical errors may still be present Due to the previous pandemic, and the use of personal protective equipment (PPE) This may decrease voice recognition accuracy Inadvertent administrative aide errors may occur 11/23/2024 BMI 24.0-24.9, adult [...] software and direct typing Please excuse inadvertent administrative aide or typing errors, or uncorrected word substitutions Although every attempt has been made by the provider to proofread this document, occasional misspellings and typographical errors may still be present Due to the previous pandemic, and the use of personal protective equipment (PPE) This may decrease voice recognition accuracy Inadvertent administrative aide errors may occur 04/12/2025 Dietary counseling and surveillance (ICD-10 - Z71.3) #Weight Management 04/12/2025 Continue maintenance dosing Thriving Constipation seems to be improving with Linzess Started incorporating strength and resistance training euglycemic Time spent today was 30 minutes, [...] software and direct typing Please excuse inadvertent administrative aide or typing errors, or uncorrected word substitutions Although every attempt has been made by the provider to proofread this document, occasional misspellings and typographical errors may still be present Due to the previous pandemic, and the use of personal protective equipment (PPE) This may decrease voice recognition accuracy Inadvertent administrative aide errors may occur 02/22/2025 Dietary counseling and surveillance (ICD-10 - Z71.3) #Weight Management 02/22/2025 Maintenance dosing discussed Decrease dosing by 50% I do not want to see any further weight loss 5 mg every 2 weeks Contrave continue PRN Linzess Started incorporating strength and resistance training [...] software and direct typing Please excuse inadvertent administrative aide or typing errors, or uncorrected word substitutions Although every attempt has been made by the provider to proofread this document, occasional misspellings and typographical errors may still be present Due to the previous pandemic, and the use of personal protective equipment (PPE) This may decrease voice recognition accuracy Inadvertent administrative aide errors may occur 02/22/2025 Irritable bowel syndrome with constipation (ICD-10 - K58.1) #Weight Management 02/22/2025 Maintenance dosing discussed Decrease dosing by 50% I do not want to see any further weight loss 5 mg every 2 weeks Contrave continue PRN Linzess Started incorporating strength and resistance training [...] software and direct typing Please excuse inadvertent administrative aide or typing errors, or uncorrected word substitutions Although every attempt has been made by the provider to proofread this document, occasional misspellings and typographical errors may still be present Due to the previous pandemic, and the use of personal protective equipment (PPE) This may decrease voice recognition accuracy Inadvertent administrative aide errors may occur 04/12/2025 BMI 23.0-23.9, adult (ICD-10 - Z68.23) #Weight Management 04/12/2025 Continue maintenance dosing Thriving Constipation seems to be improving with Linzess Started incorporating strength and resistance training euglycemic Time spent today was 30 minutes, [...] software and direct typing Please excuse inadvertent administrative aide or typing errors, or uncorrected word substitutions Although every attempt has been made by the provider to proofread this document, occasional misspellings and typographical errors may still be present Due to the previous pandemic, and the use of personal protective equipment (PPE) This may decrease voice recognition accuracy Inadvertent administrative aide errors may occur 11/23/2024 Dietary counseling and [...] software and direct typing Please excuse inadvertent administrative aide or typing errors, or uncorrected word substitutions Although every attempt has been made by the provider to proofread this document, occasional misspellings and typographical errors may still be present Due to the previous pandemic, and the use of personal protective equipment (PPE) This may decrease voice recognition accuracy Inadvertent administrative aide errors may occur 10/19/2024 Dietary counseling and [...] software and direct typing Please excuse inadvertent administrative aide or typing errors, or uncorrected word substitutions Although every attempt has been made by the provider to proofread this document, occasional misspellings and typographical errors may still be present Due to the previous pandemic, and the use of personal protective equipment (PPE) This may decrease voice recognition accuracy Inadvertent administrative aide errors may occur 07/27/2024 Type 2 diabetes mellitus without complication, [...] software and direct typing Please excuse inadvertent administrative aide or typing errors, or uncorrected word substitutions Although every attempt has been made by the provider to proofread this document, occasional misspellings and typographical errors may still be present Due to the previous pandemic, and the use of personal protective equipment (PPE) This may decrease voice recognition accuracy Inadvertent administrative aide errors may occur 09/14/2024 Type 2 diabetes [...] software and direct typing Please excuse inadvertent administrative aide or typing errors, or uncorrected word substitutions Although every attempt has been made by the provider to proofread this document, occasional misspellings and typographical errors may still be present Due to the previous pandemic, and the use of personal protective equipment (PPE) This may decrease voice recognition accuracy Inadvertent administrative aide errors may occur 06/22/2024 Dietary counseling and [...] software and direct typing Please excuse inadvertent administrative aide or typing errors, or uncorrected word substitutions Although every attempt has been made by the provider to proofread this document, occasional misspellings and typographical errors may still be present Due to the previous pandemic, and the use of personal protective equipment (PPE) This may decrease voice recognition accuracy Inadvertent administrative aide errors may occur 01/17/2025 Dietary counseling and surveillance (ICD-10 - Z71.3) #Weight Management 01/17/2025 Maintenance dosing discussed Adding on Contrave samples provided PRN Linzess Started incorporating strength and resistance training [...] software and direct typing Please excuse inadvertent administrative aide or typing errors, or uncorrected word substitutions Although every attempt has been made by the provider to proofread this document, occasional misspellings and typographical errors may still be present Due to the previous pandemic, and the use of personal protective equipment (PPE) This may decrease voice recognition accuracy Inadvertent administrative aide errors may occur 01/17/2025 Irritable bowel syndrome with constipation (ICD-10 - K58.1) #Weight Management 01/17/2025 Maintenance dosing discussed Adding on Contrave samples provided PRN Linzess Started incorporating strength and resistance training [...] software and direct typing Please excuse inadvertent administrative aide or typing errors, or uncorrected word substitutions Although every attempt has been made by the provider to proofread this document, occasional misspellings and typographical errors may still be present Due to the previous pandemic, and the use of personal protective equipment (PPE) This may decrease voice recognition accuracy Inadvertent administrative aide errors may occur 11/23/2024 Irritable bowel syndrome [...] software and direct typing Please excuse inadvertent administrative aide or typing errors, or uncorrected word substitutions Although every attempt has been made by the provider to proofread this document, occasional misspellings and typographical errors may still be present Due to the previous pandemic, and the use of personal protective equipment (PPE) This may decrease voice recognition accuracy Inadvertent administrative aide errors may occur 04/12/2025 Irritable bowel syndrome with constipation (ICD-10 - K58.1) #Weight Management 04/12/2025 Continue maintenance dosing Thriving Constipation seems to be improving with Linzess Started incorporating strength and resistance training euglycemic Time spent today was 30 minutes, [...] software and direct typing Please excuse inadvertent administrative aide or typing errors, or uncorrected word substitutions Although every attempt has been made by the provider to proofread this document, occasional misspellings and typographical errors may still be present Due to the previous pandemic, and the use of personal protective equipment (PPE) This may decrease voice recognition accuracy Inadvertent administrative aide errors may occur 02/22/2025 Encounter for examination of blood pressure without abnormal findings (ICD-10 - Z01.30) #Weight Management 02/22/2025 Maintenance dosing discussed Decrease dosing by 50% I do not want to see any further weight loss 5 mg every 2 weeks Contrave continue PRN Linzess Started incorporating strength and resistance training [...] software and direct typing Please excuse inadvertent administrative aide or typing errors, or uncorrected word substitutions Although every attempt has been made by the provider to proofread this document, occasional misspellings and typographical errors may still be present Due to the previous pandemic, and the use of personal protective equipment (PPE) This may decrease voice recognition accuracy Inadvertent administrative aide errors may occur 02/22/2025 BMI 23.0-23.9, adult (ICD-10 - Z68.23) #Weight Management 02/22/2025 Maintenance dosing discussed Decrease dosing by 50% I do not want to see any further weight loss 5 mg every 2 weeks Contrave continue PRN Linzess Started incorporating strength and resistance training [...] software and direct typing Please excuse inadvertent administrative aide or typing errors, or uncorrected word substitutions Although every attempt has been made by the provider to proofread this document, occasional misspellings and typographical errors may still be present Due to the previous pandemic, and the use of personal protective equipment (PPE) This may decrease voice recognition accuracy Inadvertent administrative aide errors may occur 04/12/2025 Encounter for examination of blood pressure without abnormal findings (ICD-10 - Z01.30) #Weight Management 04/12/2025 Continue maintenance dosing Thriving Constipation seems to be improving with Linzess Started incorporating strength and resistance training euglycemic Time spent today was 30 minutes, [...] software and direct typing Please excuse inadvertent administrative aide or typing errors, or uncorrected word substitutions Although every attempt has been made by the provider to proofread this document, occasional misspellings and typographical errors may still be present Due to the previous pandemic, and the use of personal protective equipment (PPE) This may decrease voice recognition accuracy Inadvertent administrative aide errors may occur 08/31/2024 #Weight Management 08/31/2024 Body composition analysis improving [...] software and direct typing Please excuse inadvertent administrative aide or typing errors, or uncorrected word substitutions Although every attempt has been made by the provider to proofread this document, occasional misspellings and typographical errors may still be present Due to the previous pandemic, and the use of personal protective equipment (PPE) This may decrease voice recognition accuracy Inadvertent administrative aide errors may occur Plan Of Treatment Next Appt Details Provider Name:JONATAN MOISE, 06/07/2025 10:00:00 AM, [address], [place], [phone], Insurance Providers Payer Name Payer Address Payer Phone Subscriber Number Group Number Insured Name Patient Relationship to Insured Coverage Start Date Coverage End Date [address] [place] [address] [id number] Annia Montelongo Self - patient is the insured [address] [place] [address] [id number] Annia Montelongo Self - patient is the insured 2 Medical (General) History Medical History History ICD Code type II diabetes asthma headache kidney stones anxiety Surgical History Surgery Date(Month/Year) cholecystectomy
--- NOTE | 2025-06-02 07:10 | AM.OFFWIN_ITS ---
Intake Vital Signs 06/02/25 07:11 Height 5 ft Weight 122 lb BMI 23.8 BP 112/78 Blood Pressure Location Lt brachial Position Sitting Pulse 73 Pulse Source Pulse Oximeter Pulse Oximetry (%) 97 Intake Visit Reasons: ep uti Patient Tobacco Use Status: Never used Tobacco Allergies iodine Allergy (Intermediate, Verified 06/02/25 07:11) RASH ibuprofen (From Advil) Adverse Reaction (Severe, Verified 06/02/25 07:11) tachycardia shellfish derived Adverse Reaction (Mild, Verified 06/02/25 07:11) Nausea and Vomiting Medication List - Last Reconciled 06/02/25 by Christine Zamora NP cefuroxime axetil 500 mg PO BID 7 days cetirizine 10 mg PO DAILY PRN diclofenac sodium 1% 4 grams topical BID fluconazole 150 mg orally; TAKE ONE TABLET NOW, MAY TAKE SECOND DOSE IN 3 DAYS (72 HOURS) IF STILL SYMPTOMATIC. melatonin 10 mg PO BEDTIME meloxicam 15 mg PO DAILY PRN omeprazole 20 mg PO DAILY tirzepatide (Mounjaro) 5 mg subcut QWEEK tizanidine 4 mg PO BEDTIME PRN Do you need a note to return to daycare/school/sports/work: No HPI HPI Comments History of Present Illness Details 55 y/o Female patient who presents to [facility] walk in clinic today with c/o URI symptoms. Reports Dsyuria, Urgency, suprapubic Abd cramping and Lower back pain since Monday. She has been taking AZO with good relief. Denies Fevers, chills, Nausea or vomiting. Denies Vaginal symptoms. [facility] Medical History (Updated 06/02/25 @ 07:31 by Christine Zamora NP) Cystitis Hepatic steatosis GERD (gastroesophageal reflux disease) Obesity (BMI 30-39.9) Diabetes Surgical History Hx laparoscopic cholecystectomy Hx of tubal ligation Family History (Updated 08/09/22 @ 11:10 by JASBIR Wilson) Mother Diabetes Father Diabetes Myocardial infarct Hypertension Social History (Updated 08/09/22 @ 11:10 by JASBIR Wilson) Household Members: Spouse Alcohol intake: current Alcohol intake frequency: does not drink Patient Tobacco Use Status: Never used Tobacco Current occupational status: unemployed Review of Systems Const All systems reviewed & are unremarkable except as noted in HPI and below Physical Exam Vital Signs: Last Vital Signs Pulse 73 06/02/25 07:11 BP 112/78 06/02/25 07:11 Pulse Ox 97 06/02/25 07:11 BMI result Body Mass Index 23.8 Const General: no acute distress Nutritional Appearance: well nourished Orientation/consciousness: patient oriented x3 GI Inspection: Yes normal to inspection Palpation (GI): Soft to palpation, not firm, Tenderness to palpation present (GI) suprapubicly, no guarding and not rigid Other: Pelvic Exam Deferred. General: Yes no CVA tenderness Back/Spine/Pelvis Back: no CVA tenderness Neuro General: patient oriented x3, gait normal and moves all extremities Psych Speech and movement: Normal speech and movement present Assessment & Plan Assessment & Plan (1) Cystitis: Code(s): N30.90 - Cystitis, unspecified without hematuria Plan: Urinalysis: ALYX 3+, NIT Pos, BLO 200 Urinalysis is consistent with Cystitis - will Ordered Cefuroxime BID x 7 days Will send Urine for C&S Will call Pt with results. May Continue with AZO for Pain relief. Ordered Fluconazole for Yeast prevention. Orders: Orders UA CC w/rflx Micro + Cult Today N30.90 - Cystitis, unspecified without hematuria Medications: New cefuroxime axetil 500 mg PO BID 14 tabs 0RF 7 days N30.90 - Cystitis, unspecified without hematuria fluconazole 150 mg orally; TAKE ONE TABLET NOW, MAY TAKE SECOND DOSE IN 3 DAYS (72 HOURS) IF STILL SYMPTOMATIC. 2 tabs 2RF N30.90 - Cystitis, unspecified without hematuria Coding Level of Care Code Est Pt Level 4 (35641) Diagnoses Cystitis N30.90 Time Spent (min) 20
[2025-06-02 07:11] VITALS: BP 112/78; PULSE 73; O2SAT 97; BMI 23.8
== END 2025-06-02 08:05 | disposition home or self-care (01) ==
PROVIDERS: PCP Internal Medicine; Visit Provider Nurse Practitioner Family
DX: Z13.9 Encounter for screening, unspecified (principal); N30.90 Cystitis, unspecified without hematuria

== ENCOUNTER 2025-06-02 07:00 | Outpatient (REF) | payer OTHER, SELFPAY ==
--- OUTSIDE RECORDS SUMMARY | 2025-06-02 07:40 | XMS_ITS | Clinical Summary ---
Author Organization [address] [place] [address] [place] [phone] Phone Care Team Providers Care Cannon Pinion Adjuster Name Role Phone Janett Lopez Primary Care [...] TWICE DAILY NEEDED 4 Active diphenhydramine- aluminum-magnesi am-dpyxvndrpzk-j idocaine (MAGIC MOUTHWASH) [id number] 0 mg/30 mL liquid suspensionIndica tions:Sore throat Use 10 mL in the mouth or throat 4 (four) times a day. 280 mL 4 Active vitamin B complex-folic acid (B Complex 1, with folic acid,) 0.4 mg tablet Take 1 tablet by mouth 1 (one) time each day. Active omega 0-scz-jeq-fish oil (Fish OiL) 1,200 (144-216) mg capsule Take 1 capsule by mouth 1 (one) time each day. 4 Active meloxicam (MOBIC) 15 mg tablet TAKE 1 TABLET BY MOUTH DAILY WITH FOOD NEEDED FOR PAIN 30 tablet 2 5 Active tirzepatide (MOUNJARO) 5 mg/0.5 mL injection Inject 0.75 mL (7.5 mg total) under the skin every 7 (seven) days. Active mometasone (NASONEX) 50 mcg/actuation nasal spray Administer 2 sprays into each nostril 1 (one) time each day. 17 g 5 5 01/04/20 26 Active omeprazole (PriLOSEC) [address] Moss ns:Gastroesophag eal reflux disease, unspecified whether esophagitis present TAKE 1 CAPSULE(20 MG) BY MOUTH 1 TIME EACH DAY. DO NOT CRUSH OR CHEW 30 capsule 1 5 Active Active Problems Problem Noted Date Diagnosed Date DM type 2 (diabetes mellitus , type 2) ([facility] V24, [facility] V28) 10/17/2021 Obesity (BMI 30-39.9) 10/14/2021 GERD (gastroesophageal reflux disease) 2 Hepatic steatosis 10/14/2021 Hyperlipidemia Encounters Date Type Department Care Team Description 05/08/2025 3:45 PM EDT Office Visit Internal Medicine - [place] [facility] [address] [place] [phone] Janett Lopez PA Perimenopausal vasomotor symptoms (Primary Dx) 05/01/2025 4:00 PM EDT Office Visit Orthopedic Surgery - [place] [address] [facility] [address] [place] [phone] Guillermina Barahona PA Bilateral carpal tunnel syndrome (Primary Dx) 04/07/2025 Telephone Internal Medicine - [place] [address] [facility] [address] [place] [phone] Janett Lopez PA 03/23/2025 10:30 AM EDT Office Visit Walk-In Clinic - [address] [phone] Arsenio Castro PA Lymphadenopathy (Primary Dx); Acute bacterial rhinosinusitis from Last 3 Months Immunizations Immunization Administration Dates Next Due Hepatitis B (Emjzaty-K-Atbwh , Recombivax HB-Adult) 19yo and older 04/16/2024 Surgical History Surgery Date Site/Laterality Comments TUBAL LIGATION PROCEDURE: HISTORICAL TUBAL LIGATION; COMMENT: around age 39 OTHER SURGICAL HISTORY PROCEDURE: MD DILATION & CURETTAGE DX&/THER NONOBSTETRIC; COMMENT: due ectopic around age 39 CHOLECYSTECTOMY 08/02/2021 PROCEDURE: MD LAPAROSCOPY SURG CHOLECYSTECTOMY; COMMENT: due cholelithiasis done at [facility] Medical History Medical History Date Comments Obesity [...] drink = 0.6 oz pur e alcohol) Housing Instability Answer Date Recorde d Are you worried that in the next 2 months you may not have stable housing? No 03/23/2025 Food Access & Nutrition Answer Date Rec orded Do you have access to a vari ety of food including fruits and vegetables? Yes 03/23/2025 Access to Healthcare Answer Date Record ed Within the last 3 months, ho w many times did you visit the emergency department for your medical care? 0 03/23/2025 Health Literacy Answer Date Recorded How often do you need to hav e someone help you when you read instructions, pamphlets, or other written material from your doctor or pharmacy? Rarely 03/23/2025 Caregiver: How often do you need to have someone help you when you read instructions, pamphlets, or other written material from your doctor or pharmacy? Not on file 03/23/2025 Financial Risk Answer Date Recorded How hard is it for you to pa y for the very basics like food, housing, medical care, and air conditioning / heating? Somewhat hard 03/23/2025 Transportation Answer Date Recorded Has the lack of transportati on kept you from meetings, work, or from getting things needed for daily living? No Has the lack of transportati on kept you from medical appointments or from getting medications? No 03/23/2025 Social Isolation Answer Date Recorded How often do you feel lonely or isolated from th ose around you? Never 03/23/2025 Food Risk Answer Date Recorded Within the past 12 months we worried whether our food would run out before we got money to buy more. Never true 03/23/2025 Within the past 12 months th e food we bought just didn't last and we didn't have money to get more. Never true 03/23/2025 Dependent Care Answer Date Recorded Do you need help finding or paying for care for your loved ones. For example, child care assistant or elderly care for an older adult? No 03/23/2025 Education Answer Date Recorded Do you think completing more education or training, like finishing a GED, going to college, or learning a trade, would be helpful for you? N/A 03/23/2025 Employment and Income Answer Date Recor ded During the last four weeks, have you been actively looking for work? No 03/23/2025 Living Situation Answer Date Recorded What is your living situation? 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 Not on file Not on file Obstetrics History Last Filed Vital Signs Vital Sign Reading Time Taken Comments Blood Pressure 116/74 05/08/2025 3:41 PM EDT Pulse 64 05/08/2025 3:41 PM EDT Temperature 36.4 C (97.5 F) 05/08/2025 3:41 PM EDT Respiratory Rate 18 05/08/2025 3:41 PM EDT Oxygen Saturation 96% 05/08/2025 3:41 PM EDT Inhaled Oxygen Concentration - - Weight 53.5 kg (118 lb) 05/08/2025 3:41 PM EDT Height 152.4 cm (5') 05/08/2025 3:41 PM EDT Body Mass Index 23.05 05/08/2025 3:41 PM EDT Plan of Treatment Upcoming Encounters Date Type Department Care Team (Late st Contact Info) Description 11/06/2025 4:00 PM EST Office Visit Internal Medicine - [place] [facility] [address] [place] [phone] Janett Lopez PA [address] [facility] [address] [place] [address] Health Maintenance Due Date Last Done Comments Breast Cancer Screening 1971 Diabetes: Annual Foot Exam 1981 DTaP,Tdap,and Td Vaccines (1 - Tdap) 1990 Pneumococcal Vaccine: 50+ Years (1 of 2 - PCV) 1990 Zoster Vaccines (1 of 2) 2021 Colorectal Cancer Screening: Colonoscopy 08/14/2022 HIV Screening 08/14/2022 Hepatitis C Screening 08/14/2022 Diabetes: Annual Urine Albumin-Creatinine Ratio (uACR) 03/29/2024 03/29/2023 Hepatitis B Vaccines (2 of 3 - 19+ 3-dose series) 05/14/2024 04/16/2024 Diabetes: Annual Retina Eye Exam 03/27/2025 03/27/2024 COVID-19 Vaccine ( season) 2025 08/13/2023, 07/02/2022, 08/25/2021, Additional history exists Influenza Vaccine (#1) 2025 08/13/2023, 2021 Diabetes: Blood Sugar Control Test (HGBA1C) 07/23/2025 01/20/2025, 01/17/2025, 09/22/2023 Diabetes: Annual GFR (Glomerular Filtration Rate) 01/20/2026 01/20/2025, 01/17/2025, 09/22/2023 Social Influencers of Health Screening 03/23/2026 03/23/2025 Cervical Cancer Screening: HPV 12/03/2027 12/02/2022 Cholesterol Screening (Lipid Panel) 01/20/2030 01/20/2025, 01/17/2025, 09/22/2023 RSV Immunization Adult Patients (1 - 1-dose 75+ series) 2046 Depression Screening Completed 10/05/2024 HIB Vaccines Aged Out No longer eligi [...] Procedure Name Priority Date/Time Associated Diagnosis Comments MD INJECTION CARPAL TUNNEL THERAPEUTIC Routine 05/01/2025 4:00 PM EDT Bilateral carpal tunnel syndrome COMPREHENSIVE METABOLIC PANEL Routine 01/20/2025 3:47 PM EDT Type 2 diabetes mellitus without complication, without long-term current use of insulin ([facility] V24, [facility] V28) Pure hypercholesterolemia Hepatic steatosis HEMOGLOBIN A1C Routine 01/20/2025 3:47 PM EDT Type 2 diabetes mellitus without complication, without long-term current use of insulin ([facility] V24, [facility] V28) LIPID PANEL WITH REFLEX TO DIRECT LDL Routine 01/20/2025 3:47 PM EDT Pure hypercholesterolemia DIABETES EYE EXAM Routine 03/27/2024 URINE ALBUMIN CREATININE RATIO Routine 03/29/2023 HPV Routine 12/02/2022 from Last 3 Months or Most Recently Relevant to Health Maintenance Results * MD INJECTION CARPAL TUNNEL THERAPEUTIC (05/01/2025 4:00 PM EDT) Narrative Guillermina Barahona PA - 05/01/2025 4:00 PM EDT RICO Valenzuela 05/01/2025 4:20 PM Hand / UE Inj/Asp: bilateral carpal tunnel for carpal tunnel syndrome Details: 25 G needle, volar approach Medications (Right): 0.5 mL lidocaine 1 %; 40 mg triamcinolone acetonide 40 mg/mL Medications (Left): 0.5 mL lidocaine 1 %; 40 mg triamcinolone acetonide 40 mg/mL Informed Consent: Laterality: Bilateral Relevant images/test results available and reviewed: yes Health status cleared: Yes Procedure/treatment, purpose, treatment alternatives, risks/potential complications and benefits explained: yes Risk/complications/benefits details: Risks of infection, thinning of the skin and temporary skin discoloration discussed. Discussed risks of temporary increased pain after injection and swelling and mild redness at injection site for couple days. Explained occasionally cortisone injection can cause facial flushing temporarily. Benefits pain management. For postop injection pain ice, Tylenol and/or NSAIDs if patient can take Patient questions answered: yes Patient agrees, verbalizes understanding, and wants to proceed: yes Consent given by: Patient Informed consent discussion completed by Physician/ALEX with patient: Verbal Pre-procedure timeout performed: yes us Guillermina GÓMEZ IN CLINIC/BEDSIDE ORDERABLES Final Result * (ABNORMAL) Lipid panel with reflex to direct LDL (01/20/2025 3:47 PM EDT) Cholesterol 215(H) 0 - 200 mg/dL LAB CHEMISTRY METHOD 01/20/2025 7:37 PM EDT [facility] Triglycerides 132 0 - 150 mg/dL LAB CHEMISTRY METHOD 01/20/2025 7:37 PM EDT [facility] HDL 61 >=40 mg/dL LAB CHEMISTRY METHOD 01/20/2025 7:37 PM EDT [facility] LDL Calculated 128(H) 0 - 100 mg/dL LAB CHEMISTRY METHOD 01/20/2025 7:37 PM EDT [facility] VLDL Cholesterol Cedric 26.4 mg/dL LAB CHEMISTRY METHOD 01/20/2025 7:37 PM EDT [facility] Non HDL Chol. (LDL+VLDL) 154(H) <145 mg/dL LAB CHEMISTRY METHOD 01/20/2025 7:37 PM EDT [facility] Chol/HDL Ratio 3.5 0.0 - 4.4 LAB CHEMISTRY METHOD 01/20/2025 7:37 PM EDT [facility] Blood Venous blood specimen / Unknown Venipuncture / Unknown 01/20/2025 3:47 PM EDT 01/20/2025 3:47 PM EDT us Janett GÓMEZ LAB BLOOD ORDERABLES Fin al Result [facility] [address] [place] [address], [place] [phone] * Hemoglobin A1c (01/20/2025 3:47 PM EDT) Hemoglobin A1C 4.8 <6.5 % LAB CHEMISTRY METHOD 01/20/2025 10:03 PM EDT [facility] Mean Bld Glu Estim. 91 mg/dL LAB CHEMISTRY METHOD 01/20/2025 10:03 PM [facility] Blood Venous blood specimen / Unknown Venipuncture / Unknown 01/20/2025 3:47 PM EDT 01/20/2025 3:47 PM EDT us Janett GÓMEZ LAB BLOOD ORDERABLES Fin al Result [facility] [address] [place] [address], [place] [phone] * (ABNORMAL) Comprehensive metabolic panel (01/20/2025 3:47 PM EDT) Sodium 139 133 - 145 mmol/L LAB CHEMISTRY METHOD 01/20/2025 7:37 PM [facility] Potassium 4.1 3.5 - 5.5 mmol/L LAB CHEMISTRY METHOD 01/20/2025 7:37 PM [facility] Chloride 104 96 - 110 mmol/L LAB CHEMISTRY METHOD 01/20/2025 7:37 PM [facility] CO2 28 21 - 32 mmol/L LAB CHEMISTRY METHOD 01/20/2025 7:37 PM [facility] Anion Gap 7 3 - 11 LAB CHEMISTRY METHOD 01/20/2025 7:37 PM [facility] Glucose 60(L) 70 - 100 mg/dL LAB CHEMISTRY METHOD 01/20/2025 7:37 PM [facility] BUN 17 5 - 25 mg/dL LAB CHEMISTRY METHOD 01/20/2025 7:37 PM [facility] Creatinine 0.82 0.50 - 1.10 mg/dL LAB CHEMISTRY METHOD 01/20/2025 7:37 PM [facility] eGFR 86 >=60 mL/min/1. 73m2 LAB CHEMISTRY METHOD 01/20/2025 7:37 PM [facility] Comment:Calculation based on the Chronic Kidney Disease Epidemiology Collaboration (CKD-EPI) equation refit without adjustment for race. BUN/Creatinine Ratio 20.7 LAB CHEMISTRY METHOD 01/20/2025 7:37 PM [facility] Calcium 8.8 8.5 - 10.5 mg/dL LAB CHEMISTRY METHOD 01/20/2025 7:37 PM [facility] AST (SGOT) 25 10 - 42 unit/L LAB CHEMISTRY METHOD 01/20/2025 7:37 PM [facility] ALT (SGPT) 38 10 - 60 unit/L LAB CHEMISTRY METHOD 01/20/2025 7:37 PM [facility] Alkaline Phosphatase 96 42 - 121 unit/L LAB CHEMISTRY METHOD 01/20/2025 7:37 PM [facility] Total Protein 7.7 6.0 - 8.0 g/dL LAB CHEMISTRY METHOD 01/20/2025 7:37 PM [facility] Albumin 4.1 3.2 - 5.0 g/dL LAB CHEMISTRY METHOD 01/20/2025 7:37 PM [facility] Total Bilirubin 0.5 0.0 - 1.4 mg/dL LAB CHEMISTRY METHOD 01/20/2025 7:37 PM [facility] Blood Venous blood specimen / Unknown Venipuncture / Unknown 01/20/2025 3:47 PM EDT 01/20/2025 3:47 PM EDT us Janett GÓMEZ LAB BLOOD ORDERABLES Fin al Result [facility] [address] [place] [address], * Diabetes Eye Exam (03/27/2024) Pathologist [facility] Diabetes: Annual Retina Eye Exam Abstracted Historical Provider HEALTH MAINTENANCE Final Result * Urine Albumin Creatinine Ratio (03/29/2023) Pathologist [facility] Urine Albumin Creatinine Ratio Abstracted Historical Provider HEALTH MAINTENANCE Final Result * Cervical Cancer Screening: HPV (12/02/2022) Pathologist [facility] Cervical Cancer Screening: HPV Abstracted, Negative Historical Provider HEALTH MAINTENANCE Final Result from Last 3 Months or Most Recently Relevant to Health Maintenance Insurance [facility] Care Teams Cannon Pinion Adjuster Relationship Specialty Start Date End Date Janett Lopez PA [address] [place] [address] PCP - General Internal Medicine 10/21/21
[2025-06-02 10:27] LABS: Appearance Urine Cloudy; Glucose Urine UA Negative (Negative); PH 5.5 (5.0-9.0); Specific Gravity - Urine 1.015 (1.005-1.025); UMIC TRIGGER UACC YES
[2025-06-02 10:30] LABS: UACC Culture Trigger YES
== END 2025-06-02 07:01 | disposition home or self-care (01) ==
LOC: HO.LAB 07:00
PROVIDERS: Nurse Practitioner Family; PCP Internal Medicine
DX: R30.0 Dysuria (principal); R39.15 Urgency of urination; R10.30 Lower abdominal pain, unspecified; M54.50 Low back pain, unspecified
CPT/HCPCS: 81001; 81003; 87086; 87088; 87186; 99212

== ENCOUNTER 2025-06-16 08:50 | Outpatient (AMB) | payer OTHER, SELFPAY ==
--- OUTSIDE RECORDS SUMMARY | 2025-06-16 08:53 | XMS_ITS | Clinical Summary ---
Author Organization [address] [place] [address] [place] [phone] Phone Care Team Providers Care Bag Machine Adjuster Name Role Phone Janett Lopez Primary [...] TWICE DAILY NEEDED 4 Active diphenhydramine- aluminum-magnesi ho-esqscfatbvc-q idocaine (MAGIC MOUTHWASH) [id number] 0 mg/30 mL liquid suspensionIndica tions:Sore throat Use 10 mL in the mouth or throat 4 (four) times a day. 280 mL 4 Active vitamin B complex-folic acid (B Complex 1, with folic acid,) 0.4 mg tablet Take 1 tablet by mouth 1 (one) time each day. Active omega 9-pdo-icc-fish oil (Fish OiL) 1,200 (144-216) mg capsule [...] type 2 (diabetes mellitus , type 2) ([facility] V24, [facility] V28) 10/17/2021 Obesity (BMI 30-39.9) 10/14/2021 GERD (gastroesophageal reflux disease) 2 Hepatic steatosis 10/14/2021 Hyperlipidemia Encounters Date Type Department Care Team Description 05/08/2025 3:45 PM EDT Office Visit Internal Medicine - [place] [address] [facility] [address] [place] [phone] Janett Lopez PA Perimenopausal vasomotor symptoms (Primary Dx) 05/01/2025 4:00 PM EDT Office Visit Orthopedic Surgery - [place] [address] [facility] [address] [place] [phone] Guillermina Barahona PA Bilateral carpal tunnel syndrome (Primary Dx) 04/07/2025 Telephone Internal Medicine - [place] [address] [facility] [address] [place] [phone] Janett Lopez PA 03/23/2025 10:30 AM EDT Office Visit Walk-In Clinic - [address] [phone] Arsenio Castro PA Lymphadenopathy (Primary Dx); Acute bacterial rhinosinusitis from Last 3 Months Immunizations Immunization Administration Dates Next Due Hepatitis B (Lfqodwo-S-Dtrli , Recombivax HB-Adult) 19yo and older 04/16/2024 Surgical History Surgery Date Site/Laterality Comments TUBAL LIGATION PROCEDURE: HISTORICAL TUBAL LIGATION; COMMENT: around age 39 OTHER SURGICAL HISTORY PROCEDURE: [place] DILATION & CURETTAGE DX&/THER NONOBSTETRIC; COMMENT: due ectopic around age 39 CHOLECYSTECTOMY 08/02/2021 PROCEDURE: [place] LAPAROSCOPY SURG CHOLECYSTECTOMY; COMMENT: due cholelithiasis done at [facility] Medical History Medical History Date Comments Obesity [...] care for your loved ones. For example, day care center director or elderly care for an older adult? [...] Start Date Job End Date patient registration [place] Not on file Not on file Not [...] PM EST Office Visit Internal Medicine - [place] [address] [facility] [address] [place] [phone] Janett Lopez PA [address] [facility] [address] [place] [address] Health Maintenance Due Date Last Done Comments Breast Cancer Screening 1971 Colorectal Cancer Screening: Colonoscopy 1971 Diabetes: Annual Foot Exam 1981 DTaP,Tdap,and Td Vaccines (1 - Tdap) 1990 Pneumococcal Vaccine: 50+ Years (1 of 2 - PCV) 1990 Zoster Vaccines (1 of 2) 2021 HIV Screening 08/14/2022 Hepatitis C Screening 08/14/2022 [...] Procedure Name Priority Date/Time Associated Diagnosis Comments [place] INJECTION CARPAL TUNNEL THERAPEUTIC Routine 05/01/2025 4:00 PM EDT Bilateral carpal tunnel syndrome COMPREHENSIVE METABOLIC PANEL Routine 01/20/2025 3:47 PM EDT Type 2 diabetes mellitus without complication, without long-term current use of insulin ([facility] V24, [facility] V28) Pure hypercholesterolemia Hepatic steatosis HEMOGLOBIN A1C Routine 01/20/2025 3:47 PM EDT Type 2 diabetes mellitus without complication, without long-term current use of insulin ([facility] V24, [facility] V28) LIPID PANEL WITH REFLEX TO DIRECT LDL Routine 01/20/2025 3:47 PM EDT Pure hypercholesterolemia DIABETES EYE EXAM Routine 03/27/2024 URINE ALBUMIN CREATININE RATIO Routine 03/29/2023 HPV Routine 12/02/2022 from Last 3 Months or Most Recently Relevant to Health Maintenance Results * [place] INJECTION CARPAL TUNNEL THERAPEUTIC (05/01/2025 4:00 PM EDT) Guillermina Alba PA - 05/01/2025 4:00 PM EDT [place] [...] LAB CHEMISTRY METHOD 01/20/2025 7:37 PM EDT [facility] Triglycerides 132 0 - 150 mg/dL LAB CHEMISTRY METHOD 01/20/2025 7:37 PM EDT [facility] HDL 61 >=40 mg/dL LAB CHEMISTRY METHOD 01/20/2025 7:37 PM EDT [facility] LDL Calculated 128(H) 0 - 100 mg/dL LAB CHEMISTRY METHOD 01/20/2025 7:37 PM EDT [facility] VLDL Cholesterol Cedric 26.4 mg/dL LAB CHEMISTRY METHOD 01/20/2025 7:37 PM EDT [facility] Non HDL Chol. (LDL+VLDL) 154(H) <145 mg/dL LAB CHEMISTRY METHOD 01/20/2025 7:37 PM EDT [facility] Chol/HDL Ratio 3.5 0.0 - 4.4 LAB CHEMISTRY METHOD 01/20/2025 7:37 PM EDT [facility] Blood Venous blood specimen / Unknown Venipuncture / Unknown 01/20/2025 3:47 PM EDT 01/20/2025 3:47 PM EDT us Janett GÓMEZ LAB BLOOD ORDERABLES Fin al Result [facility] [address] [place] [address], [place] [phone] * Hemoglobin A1c (01/20/2025 3:47 PM EDT) Hemoglobin A1C 4.8 <6.5 % LAB CHEMISTRY METHOD 01/20/2025 10:03 PM EDT [facility] Mean Bld Glu Estim. 91 mg/dL LAB CHEMISTRY METHOD 01/20/2025 10:03 PM [facility] Blood Venous blood specimen / Unknown Venipuncture / Unknown 01/20/2025 3:47 PM EDT 01/20/2025 3:47 PM EDT us Janett GÓMEZ LAB BLOOD ORDERABLES Fin al Result [facility] [address] [place] [address], [place] [phone] * (ABNORMAL) Comprehensive metabolic panel (01/20/2025 3:47 PM EDT) Sodium 139 133 - 145 mmol/L LAB CHEMISTRY METHOD 01/20/2025 7:37 PM [facility] Potassium 4.1 3.5 - 5.5 mmol/L LAB CHEMISTRY METHOD 01/20/2025 7:37 PM [facility] Chloride 104 96 - 110 mmol/L LAB CHEMISTRY METHOD 01/20/2025 7:37 PM [facility] CO2 28 21 - 32 mmol/L LAB CHEMISTRY METHOD 01/20/2025 7:37 PM [facility] Anion Gap 7 3 - 11 LAB CHEMISTRY METHOD 01/20/2025 7:37 PM [facility] Glucose 60(L) 70 - 100 mg/dL LAB CHEMISTRY METHOD 01/20/2025 7:37 PM [facility] BUN 17 5 - 25 mg/dL LAB CHEMISTRY METHOD 01/20/2025 7:37 PM [facility] Creatinine 0.82 0.50 - 1.10 mg/dL LAB CHEMISTRY METHOD 01/20/2025 7:37 PM [facility] eGFR 86 >=60 mL/min/1. 73m2 LAB CHEMISTRY METHOD 01/20/2025 7:37 PM EDT [facility] Comment:Calculation based on the Chronic Kidney Disease Epidemiology Collaboration (CKD-EPI) equation refit without adjustment for race. BUN/Creatinine Ratio 20.7 LAB CHEMISTRY METHOD 01/20/2025 7:37 PM EDT [facility] Calcium 8.8 8.5 - 10.5 mg/dL LAB CHEMISTRY METHOD 01/20/2025 7:37 PM EDT [facility] AST (SGOT) 25 10 - 42 unit/L LAB CHEMISTRY METHOD 01/20/2025 7:37 PM [facility] ALT (SGPT) 38 10 - 60 unit/L LAB CHEMISTRY METHOD 01/20/2025 7:37 PM [facility] Alkaline Phosphatase 96 42 - 121 unit/L LAB CHEMISTRY METHOD 01/20/2025 7:37 PM T [facility] Total Protein 7.7 6.0 - 8.0 g/dL LAB CHEMISTRY METHOD 01/20/2025 7:37 PM T [facility] Albumin 4.1 3.2 - 5.0 g/dL LAB CHEMISTRY METHOD 01/20/2025 7:37 PM [facility] Total Bilirubin 0.5 0.0 - 1.4 mg/dL LAB CHEMISTRY METHOD 01/20/2025 7:37 PM EDT [facility] Blood Venous blood specimen / Unknown Venipuncture / Unknown 01/20/2025 3:47 PM EDT 01/20/2025 3:47 PM EDT us Janett GÓMEZ LAB BLOOD ORDERABLES Fin al Result [facility] [address] [place] [address], * Diabetes Eye Exam (03/27/2024) Pathologist [facility] Diabetes: Annual Retina Eye Exam Abstracted Historical Provider HEALTH MAINTENANCE Final Result * Urine Albumin Creatinine Ratio (03/29/2023) Pathologist [facility] Urine Albumin Creatinine Ratio Abstracted Historical Provider HEALTH MAINTENANCE Final Result * Cervical Cancer Screening: HPV (12/02/2022) [facility] Cervical Cancer Screening: HPV Abstracted, Negative Historical Provider HEALTH MAINTENANCE Final Result from Last 3 Months or Most Recently Relevant to Health Maintenance Insurance [facility] Care Teams Bag Machine Adjuster Relationship Specialty Start Date End Date Janett Lopez PA [address] [place] [address] PCP - General Internal Medicine 10/21/21
--- OUTSIDE RECORDS SUMMARY | 2025-06-16 08:53 | XMS_ITS | Patient Health Record ---
[facility] Address [address] [place] [address] Care Team Providers Care Assistant Unit Forester Name Role Phone JONATAN MOISE Unavailable [phone] Allergies Allergen (clinical drug ingredient) Drug/Non Drug Allergy documented on EMR Reaction Allergy Type Onset Date Status Iodine hives Drug Allergy Active shrimp allergenic extract Shrimp (Diagnostic) Unknown Drug Allergy Active Reason For Referral No Information Medications Medication SIG (Take, Route, Frequency, Duration) Notes Start Date End Date Status Levocetirizine Dihydrochloride 5 MG 1 tablet in the evening Orally Once a day Active Potassium Active Mounjaro 5 MG/0.5ML 5mg Subcutaneous wee kly; Duration: 28 days Active Contrave 8-90 MG Week 1, take 1 table t in the morning Week 2 take 1 tablet in the morning, 1 tablet in the evening Week 3 take 2 tablets in the morning, 1 tablet in the evening Week 4 onward 2 tablets in the morning, 2 tablets in the evening Orally twice a day; Duration: 30 days Active Benzonatate Active Meloxicam Active Magnesium 250 MG 1 capsule Orally Onc e a day Active B Complex Active Melatonin Active Linzess 145 MCG 1 capsule at least 3 0 minutes before the first meal of the day on an empty stomach Orally Once a day; Duration: 30 days Active Omeprazole Active Social History Tobacco Use: Social History [...] Notes Problem Obesity due to excess calories (251869523) Other obesity due to excess calories (E66.09) Active confirmed Problem Irritable bowel syndrome characterized by constipation (787786419) Irritable bowel syndrome with constipation (K58.1) Active confirmed Problem Type II diabetes mellitus without complication (207774142) Type 2 diabetes mellitus without complication, without long-term current use of insulin (E11.9) Active confirmed Problem Body mass index 30.00 to 34.99 (303144917044358) Body mass index [BMI] 32.0-32.9, adult (Z68.32) Active confirmed Problem Body mass index 30+ - obesity (219830225) BMI 30.0-30.9,adult (Z68.30) Active confirmed Problem Overweight (871658489) Overweight (BMI 25.0-29.9) (E66.3) Active confirmed Vital Signs Heart Rate 71 /min 04/12/2025 Oximetry 98 % 04/12/2025 Blood pressure diastolic 84 mm Hg 04/12/2025 Height 60 in 04/12/2025 Blood pressure systolic 126 mm Hg 04/12/2025 Weight 121.7 lbs 04/12/2025 BMI 23.77 kg/m2 04/12/2025 Encounters Encounter Location Date Provider Diagnosis [facility] [address] [place], [place] 06/22/2024 JONATAN MOISE Overweight (BMI 25.0-29.9) E66.3 ; BMI 27.0-27.9,adult Z68.27 ; Type 2 diabetes mellitus without complication, without long-term current use of insulin E11.9 and Dietary counseling and surveillance Z71.3 [facility] [address] [place], [place] 07/27/2024 JONATAN MOISE BMI 26.0-26.9,adult Z68.26 ; Overweight (BMI 25.0-29.9) E66.3 ; Dietary counseling and surveillance Z71.3 and Type 2 diabetes mellitus without complication, without long-term current use of insulin E11.9 [facility] [address] [place], [place] 09/14/2024 JONATAN MOISE BMI 25.0-25.9,adult Z68.25 ; Overweight (BMI 25.0-29.9) E66.3 ; Dietary counseling and surveillance Z71.3 and Type 2 diabetes mellitus without complication, without long-term current use of insulin E11.[address] [facility] [address] [place] [address] 10/19/2024 JONATAN MOISE Type 2 diabetes manasa itus without complication, without long-term current use of insulin E11.9 ; BMI 24.0-24.9, adult Z68.24 and Dietary counseling and surveillance Z71.[address] [facility] [address] [place], [place] 11/23/2024 JONATAN MOISE Type 2 diabetes manasa itus without complication, without long-term current use of insulin E11.9 ; BMI 24.0-24.9, adult Z68.24 ; Dietary counseling and surveillance Z71.3 and Irritable bowel syndrome with constipation K58.[address] [facility] [address] [address] 01/17/2025 JONATAN MOISE Type 2 diabetes manasa itus without complication, without long-term current use of insulin E11.9 ; BMI 24.0-24.9, adult Z68.24 ; Dietary counseling and surveillance Z71.3 and Irritable bowel syndrome with constipation K58.[address] [facility] [address] [place] [address] 02/22/2025 JONATAN MOISE Type 2 diabetes manasa itus without complication, without long-term current use of insulin E11.9 ; Dietary counseling and surveillance Z71.3 ; Irritable bowel syndrome with constipation K58.1 ; Encounter for examination of blood pressure without abnormal findings Z01.30 and BMI 23.0-23.9, adult Z68.[address] [facility] [address] [place] [address] 04/12/2025 JONATAN RENEET Type 2 diabetes manasa itus without complication, without long-term current use of insulin E11.9 ; Dietary counseling and surveillance Z71.3 ; BMI 23.0-23.9, adult Z68.23 ; Irritable bowel syndrome with constipation K58.1 and Encounter for examination of blood pressure without abnormal findings Z01.[address] [facility] [address] [address] 09/18/2024 JONATAN MOISE Overweight (BMI 25.0-29.9) E66.3 Assessments Encounter Date Diagnosis (ICD Code) Assessment Notes Treatment Notes Treatment Clinical Notes Section Notes 07/27/2024 BMI 26.0-26.9,adult (ICD-10 - Z68.26) #Weight [...] software and direct typing Please excuse inadvertent train attendant or typing errors, or uncorrected word substitutions Although every attempt has been made by the provider to proofread this document, occasional misspellings and typographical errors may still be present Due to the previous pandemic, and the use of personal protective equipment (PPE) This may decrease voice recognition accuracy Inadvertent train attendant errors may occur 09/18/2024 Overweight (BMI 25.0-29.9) (ICD-10 - E66.3) 10/19/2024 Type 2 diabetes mellitus without complication, [...] software and direct typing Please excuse inadvertent train attendant or typing errors, or uncorrected word substitutions Although every attempt has been made by the provider to proofread this document, occasional misspellings and typographical errors may still be present Due to the previous pandemic, and the use of personal protective equipment (PPE) This may decrease voice recognition accuracy Inadvertent train attendant errors may occur 11/23/2024 Type 2 diabetes [...] software and direct typing Please excuse inadvertent train attendant or typing errors, or uncorrected word substitutions Although every attempt has been made by the provider to proofread this document, occasional misspellings and typographical errors may still be present Due to the previous pandemic, and the use of personal protective equipment (PPE) This may decrease voice recognition accuracy Inadvertent train attendant errors may occur 01/17/2025 Type 2 diabetes [...] software and direct typing Please excuse inadvertent train attendant or typing errors, or uncorrected word substitutions Although every attempt has been made by the provider to proofread this document, occasional misspellings and typographical errors may still be present Due to the previous pandemic, and the use of personal protective equipment (PPE) This may decrease voice recognition accuracy Inadvertent train attendant errors may occur 02/22/2025 Type 2 diabetes mellitus without complication, [...] software and direct typing Please excuse inadvertent train attendant or typing errors, or uncorrected word substitutions Although every attempt has been made by the provider to proofread this document, occasional misspellings and typographical errors may still be present Due to the previous pandemic, and the use of personal protective equipment (PPE) This may decrease voice recognition accuracy Inadvertent train attendant errors may occur 04/12/2025 Type 2 diabetes [...] software and direct typing Please excuse inadvertent train attendant or typing errors, or uncorrected word substitutions Although every attempt has been made by the provider to proofread this document, occasional misspellings and typographical errors may still be present Due to the previous pandemic, and the use of personal protective equipment (PPE) This may decrease voice recognition accuracy Inadvertent train attendant errors may occur 09/14/2024 BMI 25.0-25.9,adult (ICD-10 [...] software and direct typing Please excuse inadvertent train attendant or typing errors, or uncorrected word substitutions Although every attempt has been made by the provider to proofread this document, occasional misspellings and typographical errors may still be present Due to the previous pandemic, and the use of personal protective equipment (PPE) This may decrease voice recognition accuracy Inadvertent train attendant errors may occur 06/22/2024 BMI 27.0-27.9,adult (ICD-10 [...] software and direct typing Please excuse inadvertent train attendant or typing errors, or uncorrected word substitutions Although every attempt has been made by the provider to proofread this document, occasional misspellings and typographical errors may still be present Due to the previous pandemic, and the use of personal protective equipment (PPE) This may decrease voice recognition accuracy Inadvertent train attendant errors may occur 06/22/2024 Overweight (BMI 25.0-29.9) [...] software and direct typing Please excuse inadvertent train attendant or typing errors, or uncorrected word substitutions Although every attempt has been made by the provider to proofread this document, occasional misspellings and typographical errors may still be present Due to the previous pandemic, and the use of personal protective equipment (PPE) This may decrease voice recognition accuracy Inadvertent train attendant errors may occur 06/22/2024 Type 2 diabetes [...] software and direct typing Please excuse inadvertent train attendant or typing errors, or uncorrected word substitutions Although every attempt has been made by the provider to proofread this document, occasional misspellings and typographical errors may still be present Due to the previous pandemic, and the use of personal protective equipment (PPE) This may decrease voice recognition accuracy Inadvertent train attendant errors may occur 09/14/2024 Overweight (BMI 25.0-29.9) [...] software and direct typing Please excuse inadvertent train attendant or typing errors, or uncorrected word substitutions Although every attempt has been made by the provider to proofread this document, occasional misspellings and typographical errors may still be present Due to the previous pandemic, and the use of personal protective equipment (PPE) This may decrease voice recognition accuracy Inadvertent train attendant errors may occur 09/14/2024 Dietary counseling and [...] software and direct typing Please excuse inadvertent train attendant or typing errors, or uncorrected word substitutions Although every attempt has been made by the provider to proofread this document, occasional misspellings and typographical errors may still be present Due to the previous pandemic, and the use of personal protective equipment (PPE) This may decrease voice recognition accuracy Inadvertent train attendant errors may occur 04/12/2025 Dietary counseling and [...] software and direct typing Please excuse inadvertent train attendant or typing errors, or uncorrected word substitutions Although every attempt has been made by the provider to proofread this document, occasional misspellings and typographical errors may still be present Due to the previous pandemic, and the use of personal protective equipment (PPE) This may decrease voice recognition accuracy Inadvertent train attendant errors may occur 01/17/2025 BMI 24.0-24.9, adult [...] software and direct typing Please excuse inadvertent train attendant or typing errors, or uncorrected word substitutions Although every attempt has been made by the provider to proofread this document, occasional misspellings and typographical errors may still be present Due to the previous pandemic, and the use of personal protective equipment (PPE) This may decrease voice recognition accuracy Inadvertent train attendant errors may occur 02/22/2025 Dietary counseling and [...] software and direct typing Please excuse inadvertent train attendant or typing errors, or uncorrected word substitutions Although every attempt has been made by the provider to proofread this document, occasional misspellings and typographical errors may still be present Due to the previous pandemic, and the use of personal protective equipment (PPE) This may decrease voice recognition accuracy Inadvertent train attendant errors may occur 11/23/2024 BMI 24.0-24.9, adult [...] software and direct typing Please excuse inadvertent train attendant or typing errors, or uncorrected word substitutions Although every attempt has been made by the provider to proofread this document, occasional misspellings and typographical errors may still be present Due to the previous pandemic, and the use of personal protective equipment (PPE) This may decrease voice recognition accuracy Inadvertent train attendant errors may occur 10/19/2024 BMI 24.0-24.9, adult [...] software and direct typing Please excuse inadvertent train attendant or typing errors, or uncorrected word substitutions Although every attempt has been made by the provider to proofread this document, occasional misspellings and typographical errors may still be present Due to the previous pandemic, and the use of personal protective equipment (PPE) This may decrease voice recognition accuracy Inadvertent train attendant errors may occur 07/27/2024 Overweight (BMI 25.0-29.9) [...] software and direct typing Please excuse inadvertent train attendant or typing errors, or uncorrected word substitutions Although every attempt has been made by the provider to proofread this document, occasional misspellings and typographical errors may still be present Due to the previous pandemic, and the use of personal protective equipment (PPE) This may decrease voice recognition accuracy Inadvertent train attendant errors may occur 07/27/2024 Dietary counseling and [...] software and direct typing Please excuse inadvertent train attendant or typing errors, or uncorrected word substitutions Although every attempt has been made by the provider to proofread this document, occasional misspellings and typographical errors may still be present Due to the previous pandemic, and the use of personal protective equipment (PPE) This may decrease voice recognition accuracy Inadvertent train attendant errors may occur 07/27/2024 Type 2 diabetes [...] software and direct typing Please excuse inadvertent train attendant or typing errors, or uncorrected word substitutions Although every attempt has been made by the provider to proofread this document, occasional misspellings and typographical errors may still be present Due to the previous pandemic, and the use of personal protective equipment (PPE) This may decrease voice recognition accuracy Inadvertent train attendant errors may occur 10/19/2024 Dietary counseling and [...] software and direct typing Please excuse inadvertent train attendant or typing errors, or uncorrected word substitutions Although every attempt has been made by the provider to proofread this document, occasional misspellings and typographical errors may still be present Due to the previous pandemic, and the use of personal protective equipment (PPE) This may decrease voice recognition accuracy Inadvertent train attendant errors may occur 11/23/2024 Dietary counseling and [...] software and direct typing Please excuse inadvertent train attendant or typing errors, or uncorrected word substitutions Although every attempt has been made by the provider to proofread this document, occasional misspellings and typographical errors may still be present Due to the previous pandemic, and the use of personal protective equipment (PPE) This may decrease voice recognition accuracy Inadvertent train attendant errors may occur 01/17/2025 Dietary counseling and [...] software and direct typing Please excuse inadvertent train attendant or typing errors, or uncorrected word substitutions Although every attempt has been made by the provider to proofread this document, occasional misspellings and typographical errors may still be present Due to the previous pandemic, and the use of personal protective equipment (PPE) This may decrease voice recognition accuracy Inadvertent train attendant errors may occur 02/22/2025 Irritable bowel syndrome [...] software and direct typing Please excuse inadvertent train attendant or typing errors, or uncorrected word substitutions Although every attempt has been made by the provider to proofread this document, occasional misspellings and typographical errors may still be present Due to the previous pandemic, and the use of personal protective equipment (PPE) This may decrease voice recognition accuracy Inadvertent train attendant errors may occur 09/14/2024 Type 2 diabetes [...] software and direct typing Please excuse inadvertent train attendant or typing errors, or uncorrected word substitutions Although every attempt has been made by the provider to proofread this document, occasional misspellings and typographical errors may still be present Due to the previous pandemic, and the use of personal protective equipment (PPE) This may decrease voice recognition accuracy Inadvertent train attendant errors may occur 04/12/2025 BMI 23.0-23.9, adult [...] software and direct typing Please excuse inadvertent train attendant or typing errors, or uncorrected word substitutions Although every attempt has been made by the provider to proofread this document, occasional misspellings and typographical errors may still be present Due to the previous pandemic, and the use of personal protective equipment (PPE) This may decrease voice recognition accuracy Inadvertent train attendant errors may occur 06/22/2024 Dietary counseling and [...] software and direct typing Please excuse inadvertent train attendant or typing errors, or uncorrected word substitutions Although every attempt has been made by the provider to proofread this document, occasional misspellings and typographical errors may still be present Due to the previous pandemic, and the use of personal protective equipment (PPE) This may decrease voice recognition accuracy Inadvertent train attendant errors may occur 04/12/2025 Irritable bowel syndrome [...] software and direct typing Please excuse inadvertent train attendant or typing errors, or uncorrected word substitutions Although every attempt has been made by the provider to proofread this document, occasional misspellings and typographical errors may still be present Due to the previous pandemic, and the use of personal protective equipment (PPE) This may decrease voice recognition accuracy Inadvertent train attendant errors may occur 02/22/2025 Encounter for examination [...] software and direct typing Please excuse inadvertent train attendant or typing errors, or uncorrected word substitutions Although every attempt has been made by the provider to proofread this document, occasional misspellings and typographical errors may still be present Due to the previous pandemic, and the use of personal protective equipment (PPE) This may decrease voice recognition accuracy Inadvertent train attendant errors may occur 01/17/2025 Irritable bowel syndrome [...] software and direct typing Please excuse inadvertent train attendant or typing errors, or uncorrected word substitutions Although every attempt has been made by the provider to proofread this document, occasional misspellings and typographical errors may still be present Due to the previous pandemic, and the use of personal protective equipment (PPE) This may decrease voice recognition accuracy Inadvertent train attendant errors may occur 11/23/2024 Irritable bowel syndrome [...] software and direct typing Please excuse inadvertent train attendant or typing errors, or uncorrected word substitutions Although every attempt has been made by the provider to proofread this document, occasional misspellings and typographical errors may still be present Due to the previous pandemic, and the use of personal protective equipment (PPE) This may decrease voice recognition accuracy Inadvertent train attendant errors may occur 02/22/2025 BMI 23.0-23.9, adult [...] software and direct typing Please excuse inadvertent train attendant or typing errors, or uncorrected word substitutions Although every attempt has been made by the provider to proofread this document, occasional misspellings and typographical errors may still be present Due to the previous pandemic, and the use of personal protective equipment (PPE) This may decrease voice recognition accuracy Inadvertent train attendant errors may occur 04/12/2025 Encounter for examination [...] software and direct typing Please excuse inadvertent train attendant or typing errors, or uncorrected word substitutions Although every attempt has been made by the provider to proofread this document, occasional misspellings and typographical errors may still be present Due to the previous pandemic, and the use of personal protective equipment (PPE) This may decrease voice recognition accuracy Inadvertent train attendant errors may occur 08/31/2024 #Weight Management 08/31/2024 [...] software and direct typing Please excuse inadvertent train attendant or typing errors, or uncorrected word substitutions Although every attempt has been made by the provider to proofread this document, occasional misspellings and typographical errors may still be present Due to the previous pandemic, and the use of personal protective equipment (PPE) This may decrease voice recognition accuracy Inadvertent train attendant errors may occur 06/07/2025 #Weight Management 06/07/2025 Continue maintenance dosing Thriving [...] software and direct typing Please excuse inadvertent train attendant or typing errors, or uncorrected word substitutions Although every attempt has been made by the provider to proofread this document, occasional misspellings and typographical errors may still be present Due to the previous pandemic, and the use of personal protective equipment (PPE) This may decrease voice recognition accuracy Inadvertent train attendant errors may occur Plan Of Treatment Next Appt Details Provider Name:JONATAN MOISE, 06/21/2025 12:45:00 PM, [address] [facility], [place], [address], Insurance Providers Payer Name Payer Address Payer Phone Subscriber Number Group Number Insured Name Patient Relationship to Insured Coverage Start Date Coverage End Date [address] [place] [address] [id number] Annia Montelongo Self - patient is the insured [address] [place] [address] [id number] Annia Montelongo Self - patient is the insured 2 Medical (General) History Medical History History ICD Code type II diabetes asthma headache kidney stones anxiety Surgical History Surgery Date(Month/Year) cholecystectomy
[2025-06-16 09:06] VITALS: BP 122/66; PULSE 58; TEMP 36.7; O2SAT 94; BMI 23.8
--- NOTE | 2025-06-16 09:06 | AM.OFFWIN_ITS ---
Intake Vital Signs 06/16/25 09:06 Height 5 ft Weight 122 lb BMI 23.8 BP 122/66 Blood Pressure Location Lt brachial Position Sitting Pulse 58 Pulse Source Pulse Oximeter Temp 98.1 F Temp Source Oral Pulse Oximetry (%) 94 Oxygen Delivery Method Room Air Intake Visit Reasons: EP-UTI Patient Tobacco Use Status: Never used Tobacco Allergies iodine Allergy (Intermediate, Verified 06/16/25 09:10) RASH ibuprofen (From Advil) Adverse Reaction (Severe, Verified 06/16/25 09:10) tachycardia shellfish derived Adverse Reaction (Mild, Verified 06/16/25 09:10) Nausea and Vomiting Medication List - Last Reconciled 06/16/25 by Christine Zamora NP cetirizine 10 mg PO DAILY PRN diclofenac sodium 1% 4 grams topical BID melatonin 10 mg PO BEDTIME meloxicam 15 mg PO DAILY PRN omeprazole 20 mg PO DAILY phenazopyridine 200 mg (2 x 100 mg) PO Q8H PRN tirzepatide (Mounjaro) 5 mg subcut QWEEK tizanidine 4 mg PO BEDTIME PRN Do you need a note to return to daycare/school/sports/work: No HPI HPI Comments History of Present Illness Details 55 y/o Female Patient who presents to [facility] in clinic with c/o Urinary symptoms. Pt reports feeling bladder pressure, Urgency and dysuria. She does have h/o recurrent infections - last seen/treated for Cystitis the end of May. Denies systemic symptoms. She does report minimal vaginal discharge. She does report painful intercourse sometimes due to vaginal dryness. [facility] Medical History (Updated 06/02/25 @ 07:31 by Christine Zamora NP) Cystitis Hepatic steatosis GERD (gastroesophageal reflux disease) Obesity (BMI 30-39.9) Diabetes Surgical History Hx laparoscopic cholecystectomy Hx of tubal ligation Family History (Updated 08/09/22 @ 11:10 by JASBIR Wilson) Mother Diabetes Father Diabetes Myocardial infarct Hypertension Social History (Updated 08/09/22 @ 11:10 by JASBIR Wilson) Household Members: Spouse Alcohol intake: current Alcohol intake frequency: does not drink Patient Tobacco Use Status: Never used Tobacco Current occupational status: unemployed Review of Systems Const All systems reviewed & are unremarkable except as noted in HPI and below Physical Exam Vital Signs: Last Vital Signs Temp 98.1 F 06/16/25 09:06 Pulse 58 06/16/25 09:06 BP 122/66 06/16/25 09:06 Pulse Ox 94 06/16/25 09:06 Oxygen Delivery Method Room Air 06/16/25 09:06 BMI result Body Mass Index 23.8 Const General: no acute distress Nutritional Appearance: well nourished Orientation/consciousness: patient oriented x3 Other: Declined Pelvic Examination. General: Yes no CVA tenderness Back/Spine/Pelvis Back: no CVA tenderness Neuro General: patient oriented x3, gait normal and moves all extremities Psych Speech and movement: Normal speech and movement present Results AMB Urinalysis, Automated UA Leukoctes 500 Alireza/uL Last Edit by Breanna Montalvo CMA on 06/16/25 09:09 UA Nitrite Positive Last Edit by Breanna Montalvo CMA on 06/16/25 09:09 UA Urobilinogen 4 mg/dL Last Edit by Breanna Montalvo CMA on 06/16/25 09:09 UA Protein 0 mg/dL Last Edit by Breanna Montalvo CMA on 06/16/25 09:09 UA pH 5.0 Last Edit by Breanna Montalvo CMA on 06/16/25 09:09 UA Blood 0 Srikanth/uL Last Edit by Breanna Montalvo CMA on 06/16/25 09:09 UA Specific Hayden 1.010 Last Edit by Breanna Montalvo CMA on 06/16/25 09:09 UA Ketone Negative Last Edit by Breanna Montalvo CMA on 06/16/25 09:09 UA Bilirubin 4 mg/dL Last Edit by Breanna Montalvo CMA on 06/16/25 09:09 UA Glucose 0 mg/dL Last Edit by Breanna Montalvo CMA on 06/16/25 09:09 Results Reviewed Results Reviewed: Laboratory Last Values Urine pH (Auto) 5.0 06/16/25 09:06 Specific Hayden (Auto) 1.010 06/16/25 09:06 Urine Protein (Auto) 0 mg/dL 06/16/25 09:06 Glucose (UA)(Auto) 0 mg/dL 06/16/25 09:06 Urine Ketones (Auto) Negative 06/16/25 09:06 Urine Blood (Auto) 0 Srikanth/uL 06/16/25 09:06 Urine Nitrite (Auto) Positive 06/16/25 09:06 Urine Bilirubin (Auto) 4 mg/dL 06/16/25 09:06 Urine Urobilinogen (Auto) 4 mg/dL 06/16/25 09:06 Leukocyte Esterase (Auto) 500 Alireza/uL 06/16/25 09:06 Assessment & Plan Assessment & Plan (1) Cystitis: Code(s): N30.90 - Cystitis, unspecified without hematuria Plan: DDx's: Recurrent cystitis vs Vaginal Atrophy vs BV/Yeast infections. Urinalysis positive - will send for culture. Ordered Ciproflaxin for 5 days. Advised her to f/u with her PCP for urology/UroGyn referral. Orders: Orders AMB Urinalysis Automated Today Z13.9 - Encounter for screening, unspecified Bacterial Vaginosis Panel Today N30.90 - Cystitis, unspecified without hematuria Urine Culture Today N30.90 - Cystitis, unspecified without hematuria Medications: New ciprofloxacin HCl 750 mg PO Q12H 10 tabs 0RF 5 days N30.90 - Cystitis, unspecified without hematuria Refilled fluconazole 150 mg orally; TAKE ONE TABLET NOW, MAY TAKE SECOND DOSE IN 3 DAYS (72 HOURS) IF STILL SYMPTOMATIC. 2 tabs 2RF N30.90 - Cystitis, unspecified without hematuria Coding Level of Care Code Est Pt Level 4 (56177) Diagnoses Cystitis N30.90 Time Spent (min) 20
== END 2025-06-16 09:47 | disposition home or self-care (01) ==
LOC: HO.HMCWIC 08:50
PROVIDERS: PCP Internal Medicine; Visit Provider Nurse Practitioner Family
DX: N30.90 Cystitis, unspecified without hematuria (principal); Z13.9 Encounter for screening, unspecified

== ENCOUNTER 2025-06-16 08:50 | Outpatient (REF) | payer OTHER, SELFPAY ==
[2025-06-16 13:35] LABS: Bacterial Vaginosis PCR NEGATIVE (Negative); Candida Group PCR NOT DETECTED (Not Detect); Candida glab krusei PCR NOT DETECTED (Not Detect); Trichomonas vaginalis PCR NOT DETECTED (Not Detect)
== END 2025-06-16 08:51 | disposition home or self-care (01) ==
LOC: HO.LAB 08:50
PROVIDERS: PCP Internal Medicine; Visit Provider Nurse Practitioner Family
DX: N30.90 Cystitis, unspecified without hematuria (principal); Z20.2 Contact with and (suspected) exposure to infections with a predominantly sexual mode of transmission
CPT/HCPCS: 81003; 81515; 87086; 87088; 87186; 99212

== ENCOUNTER 2025-06-27 13:57 | Outpatient (REF) | payer OTHER, SELFPAY | END 2025-06-27 13:58 | disposition home or self-care (01) | LOC: HO.LAB 13:57 | PROVIDERS: PCP Internal Medicine; Visit Provider Physician Assistant | DX: N30.01 Acute cystitis with hematuria (principal) | CPT/HCPCS: 81003; 87086; 87088; 87186; 99202 ==

== ENCOUNTER 2025-06-27 13:57 | Outpatient (AMB) | payer OTHER, SELFPAY ==
--- OUTSIDE RECORDS SUMMARY | 2024-08-31 06:30 | XMS_ITS ---
Author Organization [facility] Address [address] [place] [address] Care Team Providers Care Wet Roaster Name Role Phone JONATAN MOISE Unavailable [phone] Medications Medication SIG (Take, Route, Fr equency, Duration) Notes Start Date End Date Status Mounjaro 2.5 MG/0.5ML 2.5mg Subcutaneous weekly; Duration: 30 days Active Encounters Encounter Location Date Provider Diagnosis [facility] [address] [place] [address] 08/31/2024 JONATAN MOISE BMI 26.0-26.9,adult Z68.26 ; [...] software and direct typing Please excuse inadvertent torch operator or typing errors, or uncorrected word substitutions Although every attempt has been made by the provider to proofread this document, occasional misspellings and typographical errors may still be present Due to the previous pandemic, and the use of personal protective equipment (PPE) This may decrease voice recognition accuracy Inadvertent torch operator errors may occur 08/31/2024 Overweight (BMI 25.0-29.9) [...] software and direct typing Please excuse inadvertent torch operator or typing errors, or uncorrected word substitutions Although every attempt has been made by the provider to proofread this document, occasional misspellings and typographical errors may still be present Due to the previous pandemic, and the use of personal protective equipment (PPE) This may decrease voice recognition accuracy Inadvertent torch operator errors may occur 08/31/2024 Dietary counseling and [...] software and direct typing Please excuse inadvertent torch operator or typing errors, or uncorrected word substitutions Although every attempt has been made by the provider to proofread this document, occasional misspellings and typographical errors may still be present Due to the previous pandemic, and the use of personal protective equipment (PPE) This may decrease voice recognition accuracy Inadvertent torch operator errors may occur 08/31/2024 Type 2 diabetes [...] software and direct typing Please excuse inadvertent torch operator or typing errors, or uncorrected word substitutions Although every attempt has been made by the provider to proofread this document, occasional misspellings and typographical errors may still be present Due to the previous pandemic, and the use of personal protective equipment (PPE) This may decrease voice recognition accuracy Inadvertent torch operator errors may occur Plan Of Treatment Medication Medication Name Sig Start Date Stop Date Notes Mounjaro 2.5 MG/0.5ML 2.5mg Subcutaneous weekly; Duration: 30 days Next Appt Details Provider Name:JONATAN MOISE, 08/16/2025 10:00:00 AM, [address], [place], [address], Progress Notes * Annia MONTELONGODOB: [birth year] (55 yo F)Acc No.[id number]:08/31/2024 Patient: Mark GOELJONNATHANAnnia Provider: Carlitos MOISE NP :1970 A ge:54 Y S ex:Female Date:08/31/2024 Address:[address] [place], [place] [id number] Subjective: * Chief Complaints: * * HPI: C onstitutional: Patient here today [...] Patient works as unemployed, recently moved from [place] Highest weight: 165 lbs Lowest weight: 110lbs Goal weight: 115-120 lbs CASANDRA screening, refused. Metabolic workup: labs 07/2024 renal, lfts, lytes stable glucose 91 total chol 210, LDL 121, trigs 221, hdl 45, alk phos 77 Diet: nightime cravings are problematic, not counting calories Exercise: Currently not tracking steps daily. does go to [employer], left foot pain hinders this a bit schedled to see beef grinder Non-smoker. -ETOH use:. * ROS: A ll Other Systems: Review of Systems (ROS) A ll others negative except those mentioned in HPI. * Medical History: Objective: * Vitals: * Examination: G eneral Examination: GENERAL APPEARANCE: i n no acute distress, well developed, well nourished. H EAD: n ormocephalic, atraumatic. E YES: p upils equal, round, reactive to light and accommodation. E ARS: n ormal. O RAL CAVITY: m ucosa moist. T HROAT: c lear. N MISAEL/THYROID: n misael supple, full range of motion, no cervical lymphadenopathy. S KIN: n o suspicious lesions, warm and dry. H EART: n o murmurs, regular rate and rhythm, S1, S2 normal. L UNGS: c lear to auscultation bilaterally. A BDOMEN: n ormal, bowel sounds present, soft, nontender, nondistended. E XTREMITIES: n o clubbing, cyanosis, or edema. N EUROLOGIC: n onfocal, motor strength normal upper and lower extremities, sensory exam intact. Assessment: * Assessment: 1. O verweight (BMI 25.0-29.9) - E66.3 (Primary) 2 . B ID 26.0-26.9,adult - Z68.26 3 . D ietary [...] software and direct typing Please excuse inadvertent torch operator or typing errors, or uncorrected word substitutions Although every attempt has been made by the provider to proofread this document, occasional misspellings and typographical errors may still be present Due to the previous pandemic, and the use of personal protective equipment (PPE) This may decrease voice recognition accuracy Inadvertent torch operator errors may occur. Plan: * Treatment: * Images: Billing Information: * Visit Code: * Procedure Codes: * Electronic signature of BERNADETTE MOISE on 06/27/2025 at 04:01 PM EDT Sign off status: Pending * Provider: Carlitos MOISE NP Date: 11/01/2023 Generated for Christopher kim/Yaa/Hoa on: 04:01 PM EDT History and Physical Notes * HPI (History [...] Patient works as unemployed, recently moved from [place] Highest weight: 165 lbs Lowest weight: 110lbs Goal weight: 115-120 lbs CASANDRA screening, refused. Metabolic workup: labs 07/2024 renal, lfts, lytes stable glucose 91 total chol 210, LDL 121, trigs 221, hdl 45, alk phos 77 Diet: nightime cravings are problematic, not counting calories Exercise: Currently not tracking steps daily. does go to [employer], left foot pain hinders this a bit schedled to see beef grinder Non-smoker. -ETOH use: Examination Category Sub-Category Detail [...]
--- OUTSIDE RECORDS SUMMARY | 2025-06-07 06:00 | XMS_ITS ---
Author Organization [facility] Address [address] [place] [address] Care Team Providers Care Radio Mechanic Helper Name Role Phone JONATAN MOISE Unavailable [phone] Medications Medication SIG (Take, Route, Frequency, Duration) Notes Start Date End Date Status Contrave 8-90 MG Week 1, take 1 [...] Benzonatate Active Melatonin Active Linzess 145 MCG 1 capsule at least 3 0 minutes before the first meal of the day on an empty stomach Orally Once a day; Duration: 30 days Active Omeprazole Active Levocetirizine Dihydrochloride 5 MG 1 tablet in the evening Orally Once a day Active Potassium Active Meloxicam Active Magnesium 250 MG 1 capsule Orally Onc e a day Active B Complex Active Mounjaro 5 MG/0.5ML 5mg Subcutaneous wee kly; Duration: 28 days Active Encounters Encounter Location Date Provider Diagnosis [facility] [address] [place] [address] 06/07/2025 JONATAN MOISE Type 2 diabetes manasa itus [...] software and direct typing Please excuse inadvertent hvac controls technician or typing errors, or uncorrected word substitutions Although every attempt has been made by the provider to proofread this document, occasional misspellings and typographical errors may still be present Due to the previous pandemic, and the use of personal protective equipment (PPE) This may decrease voice recognition accuracy Inadvertent hvac controls technician errors may occur 06/07/2025 Dietary counseling and [...] software and direct typing Please excuse inadvertent hvac controls technician or typing errors, or uncorrected word substitutions Although every attempt has been made by the provider to proofread this document, occasional misspellings and typographical errors may still be present Due to the previous pandemic, and the use of personal protective equipment (PPE) This may decrease voice recognition accuracy Inadvertent hvac controls technician errors may occur 06/07/2025 BMI 23.0-23.9, adult [...] software and direct typing Please excuse inadvertent hvac controls technician or typing errors, or uncorrected word substitutions Although every attempt has been made by the provider to proofread this document, occasional misspellings and typographical errors may still be present Due to the previous pandemic, and the use of personal protective equipment (PPE) This may decrease voice recognition accuracy Inadvertent hvac controls technician errors may occur 06/07/2025 Irritable bowel syndrome [...] software and direct typing Please excuse inadvertent hvac controls technician or typing errors, or uncorrected word substitutions Although every attempt has been made by the provider to proofread this document, occasional misspellings and typographical errors may still be present Due to the previous pandemic, and the use of personal protective equipment (PPE) This may decrease voice recognition accuracy Inadvertent hvac controls technician errors may occur 06/07/2025 Encounter for examination [...] software and direct typing Please excuse inadvertent hvac controls technician or typing errors, or uncorrected word substitutions Although every attempt has been made by the provider to proofread this document, occasional misspellings and typographical errors may still be present Due to the previous pandemic, and the use of personal protective equipment (PPE) This may decrease voice recognition accuracy Inadvertent hvac controls technician errors may occur Plan Of Treatment Medication Medication Name Sig Start Date Stop Date Notes Contrave 8-90 MG Week 1, take 1 table t in the morning Week 2 take 1 tablet in the morning, 1 tablet in the evening Week 3 take 2 tablets in the morning, 1 tablet in the evening Week 4 onward 2 tablets in the morning, 2 tablets in the evening Orally twice a day; Duration: 30 days Linzess 145 MCG 1 capsule at least 3 0 minutes before the first meal of the day on an empty stomach Orally Once a day; Duration: 30 days Mounjaro 5 MG/0.5ML 5mg Subcutaneous wee kly; Duration: 28 days Next Appt Details Provider Name:JONATAN MOISE, 08/16/2025 10:00:00 AM, [address], [place], [address], Progress Notes * Annia MONTELONGODOB: [birth year] (55 yo F)Acc No.[id number]:06/07/2025 Patient: Mark Annia PONCE Provider: Carlitos MOISE NP :1970 A ge:55 Y S ex:Female Date:06/07/2025 Address:[address] [place], [place] [id number] Subjective: * Chief Complaints: * * HPI: [...] CASANDRA screening, refused. l abs January 2025, [facility] Hemoglobin A1c of 4.8 Renal function electrolytes and LFTs are stable CBC is stable Total cholesterol 210, LDL 132, HDL 62, triglycerides 82 B12, magnesium, iron and folate levels unremarkable TSH 1.32. * ROS: A ll Other Systems: Review of Systems (ROS) A ll others negative except those mentioned in HPI. * Medical History: * Medications: T aking Linzess 145 MCG Capsule 1 capsule at least 30 minutes before the first meal of the day on an empty stomach Orally Once a day , Taking Contrave 8-90 MG Tablet Extended Release 12 Hour Week 1, take 1 tablet in the morning Week 2 take 1 tablet in the morning, 1 tablet in the evening Week 3 take 2 tablets in the morning, 1 tablet in the evening Week 4 onward 2 tablets in the morning, 2 tablets in the evening Orally twice a day , Taking Mounjaro 5 MG/0.5ML Solution Auto-injector 5mg Subcutaneous weekly , Taking Potassium , Taking Levocetirizine Dihydrochloride 5 MG Tablet 1 tablet in the evening Orally Once a day , Taking B Complex , Taking Magnesium 250 MG Capsule 1 capsule Orally Once a day , Taking Meloxicam , Taking Benzonatate , Taking Melatonin , Taking Omeprazole Objective: * Vitals: * Examination: G eneral [...] and surveillance - Z71.3 3 . B NE 23.0-23.9, adult - Z68.23 4 . I [...] software and direct typing Please excuse inadvertent hvac controls technician or typing errors, or uncorrected word substitutions Although every attempt has been made by the provider to proofread this document, occasional misspellings and typographical errors may still be present Due to the previous pandemic, and the use of personal protective equipment (PPE) This may decrease voice recognition accuracy Inadvertent hvac controls technician errors may occur Plan: * Treatment: 2. I rritable bowel syndrome with constipation Start Linzess Capsule, 145 MCG, 1 capsule at least 30 minutes before the first meal of the day on an empty stomach, Orally, Once a day, 30 days, 30, Refills 5. * Images: Billing Information: * Visit Code: * Procedure Codes: * Electronic signature of BERNADETTE MOISE on 06/27/2025 at 04:01 PM EDT Sign off status: Pending * Provider: Carlitos MOISE NP Date: Generated for Christopher kim/aYa/Hoa on: 04:01 PM EDT History and Physical [...] lbs CASANDRA screening, refused. labs January 2025, [facility] Hemoglobin A1c of 4.8 Renal function electrolytes [...]
--- OUTSIDE RECORDS SUMMARY | 2025-06-21 07:30 | XMS_ITS ---
Author Organization [facility] Address [address] [place] [address] Care Team Providers Care Service Station Cashier Name Role Phone JONATAN MOISE Unavailable [phone] Medications Medication SIG (Take, Route, Frequency, Duration) Notes Start Date End Date Status B Complex Active Magnesium 250 MG 1 capsule Orally Onc e a day Active Meloxicam Active Benzonatate Active Melatonin Active Mounjaro 5 MG/0.5ML 5mg Subcutaneous wee kly; Duration: 28 days Active Linzess 145 MCG 1 capsule at least 3 0 minutes before the first meal of the day on an empty stomach Orally Once a day; Duration: 30 days Active Potassium Active Contrave 8-90 MG Week 1, take 1 table t in the morning Week 2 take 1 tablet in the morning, 1 tablet in the evening Week 3 take 2 tablets in the morning, 1 tablet in the evening Week 4 onward 2 tablets in the morning, 2 tablets in the evening Orally twice a day; Duration: 30 days Active Levocetirizine Dihydrochloride 5 MG 1 tablet in the evening Orally Once a day Active Omeprazole Active Encounters Encounter Location Date Provider Diagnosis [facility] [address] [place] [address] 06/21/2025 JONATAN MOISE BMI 23.0-23.9, adult Z68.23 ; Medication management Z79.899 ; Dietary counseling and surveillance Z71.3 ; Type 2 diabetes mellitus without complication, without long-term current use of insulin E11.9 ; Irritable bowel syndrome with constipation K58.1 and Encounter for examination of blood pressure without abnormal findings Z01.30 Assessments Encounter Date Diagnosis (ICD Code) Assessment Notes Treatment Notes Treatment Clinical Notes Section Notes 06/21/2025 BMI 23.0-23.9, adult (ICD-10 - Z68.23) #Weight Management 06/21/2025 Continue maintenance dosing Thriving Constipation seems to [...] software and direct typing Please excuse inadvertent fleet director or typing errors, or uncorrected word substitutions Although every attempt has been made by the provider to proofread this document, occasional misspellings and typographical errors may still be present Due to the previous pandemic, and the use of personal protective equipment (PPE) This may decrease voice recognition accuracy Inadvertent fleet director errors may occur 06/21/2025 Medication management (ICD-10 - Z79.899) #Weight Management 06/21/2025 Continue maintenance dosing Thriving Constipation seems to [...] software and direct typing Please excuse inadvertent fleet director or typing errors, or uncorrected word substitutions Although every attempt has been made by the provider to proofread this document, occasional misspellings and typographical errors may still be present Due to the previous pandemic, and the use of personal protective equipment (PPE) This may decrease voice recognition accuracy Inadvertent fleet director errors may occur 06/21/2025 Dietary counseling and surveillance (ICD-10 - Z71.3) #Weight Management 06/21/2025 Continue maintenance dosing Thriving Constipation seems to [...] software and direct typing Please excuse inadvertent fleet director or typing errors, or uncorrected word substitutions Although every attempt has been made by the provider to proofread this document, occasional misspellings and typographical errors may still be present Due to the previous pandemic, and the use of personal protective equipment (PPE) This may decrease voice recognition accuracy Inadvertent fleet director errors may occur 06/21/2025 Type 2 diabetes mellitus without complication, without long-term current use of insulin (ICD-10 - E11.9) #Weight Management 06/21/2025 Continue maintenance dosing Thriving Constipation seems to [...] software and direct typing Please excuse inadvertent fleet director or typing errors, or uncorrected word substitutions Although every attempt has been made by the provider to proofread this document, occasional misspellings and typographical errors may still be present Due to the previous pandemic, and the use of personal protective equipment (PPE) This may decrease voice recognition accuracy Inadvertent fleet director errors may occur 06/21/2025 Irritable bowel syndrome with constipation (ICD-10 - K58.1) #Weight Management 06/21/2025 Continue maintenance dosing Thriving Constipation seems to [...] software and direct typing Please excuse inadvertent fleet director or typing errors, or uncorrected word substitutions Although every attempt has been made by the provider to proofread this document, occasional misspellings and typographical errors may still be present Due to the previous pandemic, and the use of personal protective equipment (PPE) This may decrease voice recognition accuracy Inadvertent fleet director errors may occur 06/21/2025 Encounter for examination of blood pressure without abnormal findings (ICD-10 - Z01.30) #Weight Management 06/21/2025 Continue maintenance dosing Thriving Constipation seems to [...] software and direct typing Please excuse inadvertent fleet director or typing errors, or uncorrected word substitutions Although every attempt has been made by the provider to proofread this document, occasional misspellings and typographical errors may still be present Due to the previous pandemic, and the use of personal protective equipment (PPE) This may decrease voice recognition accuracy Inadvertent fleet director errors may occur Plan Of Treatment Medication Medication Name Sig Start Date Stop Date Notes Mounjaro 5 MG/0.5ML 5mg Subcutaneous wee kly; Duration: 28 days Linzess 145 MCG 1 capsule at least 3 0 minutes before the first meal of the day on an empty stomach Orally Once a day; Duration: 30 days Contrave 8-90 MG Week 1, take 1 table t in the morning Week 2 take 1 tablet in the morning, 1 tablet in the evening Week 3 take 2 tablets in the morning, 1 tablet in the evening Week 4 onward 2 tablets in the morning, 2 tablets in the evening Orally twice a day; Duration: 30 days Next Appt Details Provider Name:JONATAN MOISE, 08/16/2025 10:00:00 AM, [address] [facility], [place], [address], Progress Notes * Annia MONTELONGODOB: [birth year] (55 yo F)Acc No.[id number]:06/21/2025 Patient: Annia DICK Provider: Carlitos MOISE NP :1970 A ge:55 Y S ex:Female Date:06/21/2025 Address:[address] [place], [place] [id number] Subjective: * Chief Complaints: * * HPI: C onstitutional: Patient here today for a weight management followup visit Patient seen and examined. Full past medical history, social history, family history, allergies and current medications were reviewed and updated. Body composition analysis reviewed today #Weight Management 06/21/2025 24-hour dietary recall Breakfast: Lunch: Dinner: Snacking: [...] no side effects. Non-smoker. ETOH use: no 06/21/2025, Weight , BMI 04/12/2025, Weight 121lbs , [...] CASANDRA screening, refused. l abs January 2025, [facility] Hemoglobin A1c of 4.8 Renal function electrolytes and LFTs are stable CBC is stable Total cholesterol 210, LDL 132, HDL 62, triglycerides 82 B12, magnesium, iron and folate levels unremarkable TSH 1.32. * ROS: A ll Other Systems: Review of Systems (ROS) A ll others negative except those mentioned in HPI. * Medical History: * Medications: T aking Potassium , Taking Levocetirizine Dihydrochloride 5 MG Tablet 1 tablet in the evening Orally Once a day , Taking B Complex , Taking Magnesium 250 MG Capsule 1 capsule Orally Once a day , Taking Meloxicam , Taking Benzonatate , Taking Melatonin , Taking Omeprazole , Taking Linzess 145 MCG Capsule 1 capsule [...] 5 MG/0.5ML Solution Auto-injector 5mg Subcutaneous weekly Objective: * Vitals: * Examination: G eneral [...] sensory exam intact. Assessment: * Assessment: 1. M edication management - Z79.899 (Primary) 2 . B MT 23.0-23.9, adult - Z68.23 3 . D ietary counseling and surveillance - Z71.3 4 . T ype 2 diabetes mellitus without complication, without long-term current use of insulin - E11.9 5 . I rritable bowel syndrome with constipation - K58.1 6 . E ncounter for examination of blood pressure without abnormal findings - Z01.30 #Weight Management 06/21/2025 Continue maintenance dosing Thriving Constipation seems to [...] software and direct typing Please excuse inadvertent fleet director or typing errors, or uncorrected word substitutions Although every attempt has been made by the provider to proofread this document, occasional misspellings and typographical errors may still be present Due to the previous pandemic, and the use of personal protective equipment (PPE) This may decrease voice recognition accuracy Inadvertent fleet director errors may occur Plan: * Treatment: 2. [...] NP Date: Generated for Christopher kim/Yaa/Hoa on: 04:01 PM EDT History and Physical Notes * HPI (History of Present Illness) Category Sub-Category Detail Notes Category Not es Constitutional Patient here today for a weight management followup visit Patient seen and examined. Full past medical history, social history, family history, allergies and current medications were reviewed and updated. Body composition analysis reviewed today #Weight Management 06/21/2025 24-hour dietary recall Breakfast: Lunch: Dinner: Snacking: [...] no side effects. Non-smoker. ETOH use: no 06/21/2025, Weight , BMI 04/12/2025, Weight 121lbs , [...] lbs CASANDRA screening, refused. labs January 2025, [facility] Hemoglobin A1c of 4.8 Renal function electrolytes and LFTs are stable CBC is stable Total cholesterol 210, LDL 132, HDL 62, triglycerides 82 B12, magnesium, iron and folate levels unremarkable TSH 1.32 Examination Category Sub-Category Detail Notes Category Not es General Examination GENERAL APPEARANCE: in no ac [place] distress, well developed, well nourished HEAD: normocephalic, [...]
[2025-06-27 14:08] VITALS: BP 106/70; PULSE 55; TEMP 36.8; O2SAT 95; BMI 23.8
--- NOTE | 2025-06-27 14:08 | MHC.OFFWIV ---
Intake Vital Signs 06/27/25 14:08 Height 5 ft Weight 122 lb BMI 23.8 BP 106/70 Blood Pressure Location Lt brachial Position Sitting Pulse 55 Pulse Source Pulse Oximeter Temp 98.3 F Temp Source Oral Pulse Oximetry (%) 95 Oxygen Delivery Method Room Air Intake Visit Reasons: EP severe pain/UTI? Patient Tobacco Use Status: Never used Tobacco Allergies iodine Allergy (Intermediate, Verified 06/27/25 14:09) RASH ibuprofen (From Advil) Adverse Reaction (Severe, Verified 06/27/25 14:09) tachycardia shellfish derived Adverse Reaction (Mild, Verified 06/27/25 14:09) Nausea and Vomiting Do you need a note to return to daycare/school/sports/work: No HPI HPI Comments History of Present Illness Details History - The patient is a 55-year-old female presenting with recurrent urinary tract infection symptoms. - The patient initially presented with a urinary tract infection on June 02, treated with Cefuroxime 500 mg BID for 7 days. she took the medication in full. - The culture grew Klebsiella, which was sensitive to some cephalosporins, but the infection persisted. - On June 16, the patient returned with similar symptoms and was treated with Ciprofloxacin 750 mg for five days, later reduced to 250 mg due to heart palpitations. - The infection persisted, and Klebsiella was again identified. - The patient reports current symptoms of burning during urination, pelvic pain, and back pain, with no visible blood in urine. - The patient has been using phenazopyridine for pain management, which she finds helpful. - The patient has a history of constipation, which she manages with senna, though it causes diarrhea, and she uses it only on weekends. - Previous hospitalizations for UTIs were noted, with IV antibiotics administered in the past on 2 occasions Review of Systems - Genitourinary: Reports burning during urination, pelvic pain, back pain. Denies visible blood in urine. - Cardiovascular: Reports heart palpitations with higher doses of Ciprofloxacin. - Gastrointestinal: Reports constipation managed with senna, causing diarrhea. All systems reviewed and are unremarkable except as noted in HPI Physical Exam General: Cooperative, healthy appearing, comfortable, no acute distress and well developed Orientation: Patient oriented x3 Limitations: No limitations Head: Normal to inspection Ears: Hearing grossly normal bilaterally Face and sinus: Normal facial exam Neck: Normal visual inspection and Yes full ROM Respiratory: Normal respiratory effort and able to speak in complete sentences. Skin: No rashes or lesions noted Neuro: Patient oriented x3 [facility] Medical History (Updated 06/27/25 @ 14:31 by Chhaya Hanna PA-C) Cystitis Hepatic steatosis GERD (gastroesophageal reflux disease) Obesity (BMI 30-39.9) Diabetes Surgical History Hx laparoscopic cholecystectomy Hx of tubal ligation Family History (Updated 08/09/22 @ 11:10 by JASBIR Wilson) Mother Diabetes Father Diabetes Myocardial infarct Hypertension Social History (Updated 06/27/25 @ 14:12 by Shanique Mccullough MA) Household Members: Spouse Alcohol intake: current Alcohol intake frequency: does not drink Patient Tobacco Use Status: Never used Tobacco Current occupational status: unemployed Physical Exam Vital Signs: Last Vital Signs Temp 98.3 F 06/27/25 14:08 Pulse 55 06/27/25 14:08 BP 106/70 06/27/25 14:08 Pulse Ox 95 06/27/25 14:08 Oxygen Delivery Method Room Air 06/27/25 14:08 BMI result Body Mass Index 23.8 Assessment & Plan Assessment & Plan (1) UTI (urinary tract infection): Code(s): N39.0 - Urinary tract infection, site not specified Qualifiers: Urinary tract infection type: acute cystitis Hematuria presence: with hematuria Qualified Code(s): N30.01 - Acute cystitis with hematuria Plan: Plan - UA +leuks, + nitrites, + protein, + blood - Prescribe Ciprofloxacin 500 mg for 7 days for the treatment of complicated UTI, monitoring for heart palpitations. - Sent urine culture to confirm the presence of Klebsiella and adjust antibiotics if necessary. - Advise against using tizanidine concurrently with Ciprofloxacin due to contraindications. - Provide fluconazole for potential yeast infection secondary to antibiotic use, to be taken if symptoms develop. - Recommend managing constipation with a laxative before bed, avoiding senna due to diarrhea risk. Patient was informed and verbally consented to the use of an ambient scribe for clinic note documentation during this visit. Orders: Orders Urine Culture Today N39.0 - Urinary tract infection, site not specified Medications: New ciprofloxacin HCl 500 mg PO Q12H 14 tabs 0RF fluconazole may repeat second dose 72 hrs after first dose if symptoms persist 150 mg PO Q3D 2 tabs 0RF Coding Level of Care Code New Pt Level 3 (20137) Diagnoses Acute cystitis with hematuria N30.01 Urinary tract infection type: acute cystitis Hematuria presence: with hematuria
--- OUTSIDE RECORDS SUMMARY | 2025-06-27 16:01 | XMS_ITS | Encounter Summary ---
Author Organization [facility] Address [address] [place] [address] Care Team Providers Care Aluminizer Name Role Phone Janett Lopez Primary Care Provider + Encounter Details Date Type Department Care Team ([facility] Contact Info) Description 06/22/2025 Results Follow-Up Internal Medicine - [place] [address] [facility] [address] [place] [phone] Rekha Camp MD [address] [facility] [address] [place] [phone] Social History Tobacco Use Types Packs/Day Years [...] your loved ones. For example, child care supervisor or elderly care for an older adult? [...] on file documented as of this encounter Plan of Treatment Upcoming Encounters Date Type Department Care Team (Late st Contact Info) Description 11/06/2025 4:00 PM EST Office Visit Internal Medicine - [place] [address] [facility] [address] [place] [address] Janett Lopez, [place] [address] [facility] [address] [place] [address] documented as of this encounter Visit Diagnoses Not on filedocumented in this encounter Additional Health Concerns Assessment Noted Time PHQ-9 Depression Total Score: 0 10/05/19 25 10:26 AM EST documented as of this encounter Care Teams Aluminizer Relationship Specialty Start Date End Date Janett Lopez PA [address] [place] [address] PCP - General Internal Medicine 10/21/21 documented as of this encounter
--- OUTSIDE RECORDS SUMMARY | 2025-06-27 16:01 | XMS_ITS | Clinical Summary ---
Author Organization [address] [place] [address] [place] [phone] Phone Care Team Providers Care Loan Operations Specialist Name Role Phone Janett Lopez Primary Care [...] TWICE DAILY NEEDED 4 Active diphenhydramine- aluminum-magnesi lw-jggnzgppfwq-z idocaine (MAGIC MOUTHWASH) [phone] 0 mg/30 mL liquid suspensionIndica tions:Sore throat Use 10 mL in the mouth or throat 4 (four) times a day. 280 mL 4 Active vitamin B complex-folic acid (B Complex 1, with folic acid,) 0.4 mg tablet Take 1 tablet by mouth 1 (one) time each day. Active omega 4-csg-ykz-fish oil (Fish OiL) 1,200 (144-216) mg capsule [...] 26 Active omeprazole (PriLOSEC) [address] Ajay ns:Gastroesophag eal reflux disease, unspecified whether esophagitis present TAKE 1 CAPSULE(20 MG) BY MOUTH 1 TIME EACH DAY. DO NOT CRUSH OR CHEW 30 capsule 1 5 Active Active Problems Problem Noted Date Diagnosed Date DM type 2 (diabetes mellitus , type 2) (CMS/[facility] V24, [facility] V28) 10/17/2021 Obesity (BMI 30-39.9) 10/14/2021 GERD (gastroesophageal reflux disease) 2 Hepatic steatosis 10/14/2021 Hyperlipidemia Encounters Date Type Department Care Team Description 06/22/2025 Results Follow-Up Internal Medicine - [place] [address] [facility] [address] [place] [phone] Rekha Camp MD 05/08/2025 3:45 PM EDT Office Visit Internal Medicine - [place] [address] [facility] [address] [place] [phone] Janett Lopez PA Perimenopausal vasomotor symptoms (Primary Dx) 05/01/2025 4:00 PM EDT Office Visit Orthopedic Surgery - [place] [address] [facility] [address] [place] [phone] Guillermina Baarhona PA Bilateral carpal tunnel syndrome (Primary Dx) 04/07/2025 Telephone Internal Medicine [facility] [address] [facility] [address] [place] [phone] Janett Lopez PA from Last 3 Months Immunizations Immunization Administration Dates Next Due Hepatitis B (Nceqdqq-O-Qqadb , Recombivax HB-Adult) 19yo and older 04/16/2024 Surgical History Surgery Date Site/Laterality Comments TUBAL LIGATION PROCEDURE: HISTORICAL TUBAL LIGATION; COMMENT: around age 39 OTHER SURGICAL HISTORY PROCEDURE: DE DILATION & CURETTAGE DX&/THER NONOBSTETRIC; COMMENT: due ectopic around age 39 CHOLECYSTECTOMY 08/02/2021 PROCEDURE: DE LAPAROSCOPY SURG CHOLECYSTECTOMY; COMMENT: due cholelithiasis done at [facility] Medical History Medical History Date Comments [...] your loved ones. For example, child care coordinator or elderly care for an older adult? [...] PM EST Office Visit Internal Medicine - [place] [address] [facility] [address] [place] [phone] Janett Lopez, [place] [address] [facility] [address] [place] [address] Health Maintenance Due Date Last Done Comments [...] Procedure Name Priority Date/Time Associated Diagnosis Comments EXTERNAL CLINICAL LAB 06/16/2025 EXTERNAL CLINICAL LAB 06/16/2025 DE INJECTION CARPAL TUNNEL THERAPEUTIC Routine 05/01/2025 4:00 PM EDT Bilateral carpal tunnel syndrome COMPREHENSIVE METABOLIC PANEL Routine 01/20/2025 3:47 PM EDT Type 2 diabetes mellitus without complication, without long-term current use of insulin (CMS/HCC V24, CMS/HCC V28) Pure hypercholesterolemia Hepatic steatosis HEMOGLOBIN A1C Routine 01/20/2025 3:47 PM EDT Type 2 diabetes mellitus without complication, without long-term current use of insulin (CMS/HCC V24, CMS/HCC V28) LIPID PANEL WITH REFLEX TO DIRECT LDL Routine 01/20/2025 3:47 PM EDT Pure hypercholesterolemia DIABETES EYE EXAM Routine 03/27/2024 URINE ALBUMIN CREATININE RATIO Routine 03/29/2023 HPV Routine 12/02/2022 from Last 3 Months or Most Recently Relevant to Health Maintenance Results * External clinical lab (06/16/2025) Only the most recent of2 resultswithin the time period is included. us Provider [facility] LAB BLOOD ORDERABLES Fin al Result * DE INJECTION CARPAL TUNNEL THERAPEUTIC (05/01/2025 4:00 PM [...] LAB CHEMISTRY METHOD 01/20/2025 7:37 PM EDT [facility] Triglycerides 132 0 - 150 mg/dL LAB CHEMISTRY METHOD 01/20/2025 7:37 PM EDT [facility] HDL 61 >=40 mg/dL LAB CHEMISTRY METHOD 01/20/2025 7:37 PM EDT [facility] LDL Calculated 128(H) 0 - 100 mg/dL LAB CHEMISTRY METHOD 01/20/2025 7:37 PM EDT [facility] VLDL Cholesterol Cedric 26.4 mg/dL LAB CHEMISTRY METHOD 01/20/2025 7:37 PM EDT [facility] Non HDL Chol. (LDL+VLDL) 154(H) <145 mg/dL LAB CHEMISTRY METHOD 01/20/2025 7:37 PM EDT [facility] Chol/HDL Ratio 3.5 0.0 - 4.4 LAB CHEMISTRY METHOD 01/20/2025 7:37 PM EDT [facility] Blood Venous blood specimen / Unknown Venipuncture / Unknown 01/20/2025 3:47 PM EDT 01/20/2025 3:47 PM EDT us Janett GÓMEZ LAB BLOOD ORDERABLES Fin al Result [facility] [address] [place] [address], [place] [phone] * Hemoglobin A1c (01/20/2025 3:47 PM EDT) [facility] Hemoglobin A1C 4.8 <6.5 % LAB CHEMISTRY METHOD 01/20/2025 10:03 PM EDT [facility] Mean Bld Glu Estim. 91 mg/dL LAB CHEMISTRY METHOD 01/20/2025 10:03 PM EDT [facility] Blood Venous blood specimen / Unknown Venipuncture / Unknown 01/20/2025 3:47 PM EDT 01/20/2025 3:47 PM EDT Janett GÓMEZ LAB BLOOD ORDERABLES Fin al Result [facility] [address] [place] [address], [place] [phone] * (ABNORMAL) Comprehensive metabolic panel (01/20/2025 3:47 PM EDT) [facility] Sodium 139 133 - 145 mmol/L LAB CHEMISTRY METHOD 01/20/2025 7:37 PM [facility] Potassium 4.1 3.5 - 5.5 mmol/L LAB CHEMISTRY METHOD 01/20/2025 7:37 PM [facility] Chloride 104 96 - 110 mmol/L LAB CHEMISTRY METHOD 01/20/2025 7:37 PM T [facility] CO2 28 21 - 32 mmol/L LAB CHEMISTRY METHOD 01/20/2025 7:37 PM EDT [facility] Anion Gap 7 3 - 11 LAB CHEMISTRY METHOD 01/20/2025 7:37 PM [facility] Glucose 60(L) 70 - 100 mg/dL LAB CHEMISTRY METHOD 01/20/2025 7:37 PM [facility] BUN 17 5 - 25 mg/dL LAB CHEMISTRY METHOD 01/20/2025 7:37 PM [facility] Creatinine 0.82 0.50 - 1.10 mg/dL LAB CHEMISTRY METHOD 01/20/2025 7:37 PM [facility] eGFR 86 >=60 mL/min/1. 73m2 LAB CHEMISTRY METHOD 01/20/2025 7:37 PM [facility] Comment:Calculation based on the Chronic Kidney Disease Epidemiology Collaboration (CKD-EPI) equation refit without adjustment for race. BUN/Creatinine Ratio 20.7 LAB CHEMISTRY METHOD 01/20/2025 7:37 PM [facility] Calcium 8.8 8.5 - 10.5 mg/dL LAB CHEMISTRY METHOD 01/20/2025 7:37 PM [facility] AST (SGOT) 25 10 - 42 unit/L LAB CHEMISTRY METHOD 01/20/2025 7:37 PM [facility] ALT (SGPT) 38 10 - 60 unit/L LAB CHEMISTRY METHOD 01/20/2025 7:37 PM [facility] Alkaline Phosphatase 96 42 - 121 unit/L LAB CHEMISTRY METHOD 01/20/2025 7:37 PM [facility] Total Protein 7.7 6.0 - 8.0 g/dL LAB CHEMISTRY METHOD 01/20/2025 7:37 PM [facility] Albumin 4.1 3.2 - 5.0 g/dL LAB CHEMISTRY METHOD 01/20/2025 7:37 PM [facility] Total Bilirubin 0.5 0.0 - 1.4 mg/dL LAB CHEMISTRY METHOD 01/20/2025 7:37 PM [facility] Blood Venous blood specimen / Unknown Venipuncture / Unknown 01/20/2025 3:47 PM EDT 01/20/2025 3:47 PM EDT Janett GÓMEZ LAB BLOOD ORDERABLES Fin al Result [facility] [address] [place] [address], * Diabetes Eye Exam (03/27/2024) [facility] Diabetes: Annual Retina Eye Exam Abstracted Historical Provider HEALTH MAINTENANCE Final Result * Urine Albumin Creatinine Ratio (03/29/2023) [facility] Urine Albumin Creatinine Ratio Abstracted Historical Provider HEALTH MAINTENANCE Final Result * Cervical Cancer Screening: HPV (12/02/2022) [facility] Cervical Cancer Screening: HPV Abstracted, Negative Historical Provider HEALTH MAINTENANCE Final Result from Last 3 Months or Most Recently Relevant to Health Maintenance Insurance [facility] Care Teams Loan Operations Specialist Relationship Specialty Start Date End Date Janett Lopez PA [address] [place] [address] PCP - General Internal Medicine 10/21/21
--- OUTSIDE RECORDS SUMMARY | 2025-06-27 16:02 | XMS_ITS | Patient Health Record ---
[facility] Organization [facility] Address [address] [place] [address] Care Team Providers Care Head Sawyer Automatic Name Role Phone JONATAN MOISE Unavailable [phone] Allergies Allergen (clinical drug ingredient) Drug/Non Drug Allergy documented on EMR Reaction Allergy Type Onset Date Status Iodine hives Drug Allergy Active shrimp allergenic extract Shrimp (Diagnostic) Unknown Drug Allergy Active Reason For Referral No Information Medications Medication SIG (Take, Route, Frequency, Duration) Notes Start Date End Date Status Omeprazole Active Mounjaro 5 MG/0.5ML 5mg Subcutaneous wee klpeterson; Duration: 28 days Active B Complex Active Magnesium 250 MG 1 capsule Orally Onc e a day Active Linzess 145 MCG 1 capsule at [...] the evening Orally Once a day Active Meloxicam Active Benzonatate Active Melatonin Active Social History Tobacco Use: Social History [...] Notes Problem Obesity due to excess calories (221540708) Other obesity due to excess calories (E66.09) Active confirmed Problem Irritable bowel syndrome characterized by constipation (516698241) Irritable bowel syndrome with constipation (K58.1) Active confirmed Problem Type II diabetes mellitus without complication (543208695) Type 2 diabetes mellitus without complication, without long-term current use of insulin (E11.9) Active confirmed Problem Body mass index 30.00 to 34.99 (674127785323932) Body mass index [BMI] 32.0-32.9, adult (Z68.32) Active confirmed Problem Body mass index 30+ - obesity (509999018) BMI 30.0-30.9,adult (Z68.30) Active confirmed Problem Overweight (376989961) Overweight (BMI 25.0-29.9) (E66.3) Active confirmed Vital Signs Heart Rate 72 /min 06/21/2025 Oximetry 98 % 06/21/2025 Blood pressure diastolic 76 mm Hg 06/21/2025 Height 60 in 06/21/2025 Blood pressure systolic 124 mm Hg 06/21/2025 Weight 123 lbs 06/21/2025 BMI 24.02 kg/m2 06/21/2025 Encounters Encounter Location Date Provider Diagnosis [facility] [address] [place], [place] 07/27/2024 JONATAN MOISE BMI 26.0-26.9,adult Z68.26 ; Overweight (BMI 25.0-29.9) E66.3 ; Dietary counseling and surveillance Z71.3 and Type 2 diabetes mellitus without complication, without long-term current use of insulin E11.9 [facility] [address] [place], [place] 09/14/2024 JONATAN MOISE BMI 25.0-25.9,adult Z68.25 ; Overweight (BMI 25.0-29.9) E66.3 ; Dietary counseling and surveillance Z71.3 and Type 2 diabetes mellitus without complication, without long-term current use of insulin E11.9 [facility] [address] [place], [place] 10/19/2024 JONATAN MOISE Type 2 diabetes manasa itus without complication, without long-term current use of insulin E11.9 ; BMI 24.0-24.9, adult Z68.24 and Dietary counseling and surveillance Z71.[address] [place] [address] 11/23/2024 JONATANROSA RENEET Type 2 diabetes manasa itus without complication, without long-term current use of insulin E11.9 ; BMI 24.0-24.9, adult Z68.24 ; Dietary counseling and surveillance Z71.3 and Irritable bowel syndrome with constipation K58.1 [facility] [address] [facility] [address] [place] [address] 01/17/2025 JONATAN ANDERSHOT Type 2 diabetes manasa itus without complication, without long-term current use of insulin E11.9 ; BMI 24.0-24.9, adult Z68.24 ; Dietary counseling and surveillance Z71.3 and Irritable bowel syndrome with constipation K58.[address] [address] [place] [address] 02/22/2025 JONATANROSA RENEET Type 2 diabetes manasa itus without complication, without long-term current use of insulin E11.9 ; Dietary counseling and surveillance Z71.3 ; Irritable bowel syndrome with constipation K58.1 ; Encounter for examination of blood pressure without abnormal findings Z01.30 and BMI 23.0-23.9, adult Z68.[address] [place] [address] 04/12/2025 JONATANROSA RENEET Type 2 diabetes manasa itus without complication, without long-term current use of insulin E11.9 ; Dietary counseling and surveillance Z71.3 ; BMI 23.0-23.9, adult Z68.23 ; Irritable bowel syndrome with constipation K58.1 and Encounter for examination of blood pressure without abnormal findings Z01.[address] [place] [address] 06/21/2025 JONATAN BORHOT Type 2 diabetes manasa itus without complication, without long-term current use of insulin E11.9 ; Dietary counseling and surveillance Z71.3 ; BMI 23.0-23.9, adult Z68.23 ; Irritable bowel syndrome with constipation K58.1 and Encounter for examination of blood pressure without abnormal findings Z01.30 [facility] [address] [address] 09/18/2024 JONATAN MOISE Overweight (BMI 25.0-29.9) E66.3 [...] software and direct typing Please excuse inadvertent circuitry negative inspector or typing errors, or uncorrected word substitutions Although every attempt has been made by the provider to proofread this document, occasional misspellings and typographical errors may still be present Due to the previous pandemic, and the use of personal protective equipment (PPE) This may decrease voice recognition accuracy Inadvertent circuitry negative inspector errors may occur 09/18/2024 Overweight (BMI 25.0-29.9) [...] software and direct typing Please excuse inadvertent circuitry negative inspector or typing errors, or uncorrected word substitutions Although every attempt has been made by the provider to proofread this document, occasional misspellings and typographical errors may still be present Due to the previous pandemic, and the use of personal protective equipment (PPE) This may decrease voice recognition accuracy Inadvertent circuitry negative inspector errors may occur 01/17/2025 Type 2 diabetes [...] software and direct typing Please excuse inadvertent circuitry negative inspector or typing errors, or uncorrected word substitutions Although every attempt has been made by the provider to proofread this document, occasional misspellings and typographical errors may still be present Due to the previous pandemic, and the use of personal protective equipment (PPE) This may decrease voice recognition accuracy Inadvertent circuitry negative inspector errors may occur 02/22/2025 Type 2 diabetes [...] software and direct typing Please excuse inadvertent circuitry negative inspector or typing errors, or uncorrected word substitutions Although every attempt has been made by the provider to proofread this document, occasional misspellings and typographical errors may still be present Due to the previous pandemic, and the use of personal protective equipment (PPE) This may decrease voice recognition accuracy Inadvertent circuitry negative inspector errors may occur 04/12/2025 Type 2 diabetes [...] software and direct typing Please excuse inadvertent circuitry negative inspector or typing errors, or uncorrected word substitutions Although every attempt has been made by the provider to proofread this document, occasional misspellings and typographical errors may still be present Due to the previous pandemic, and the use of personal protective equipment (PPE) This may decrease voice recognition accuracy Inadvertent circuitry negative inspector errors may occur 06/21/2025 Type 2 diabetes [...] software and direct typing Please excuse inadvertent circuitry negative inspector or typing errors, or uncorrected word substitutions Although every attempt has been made by the provider to proofread this document, occasional misspellings and typographical errors may still be present Due to the previous pandemic, and the use of personal protective equipment (PPE) This may decrease voice recognition accuracy Inadvertent circuitry negative inspector errors may occur 10/19/2024 Type 2 diabetes [...] software and direct typing Please excuse inadvertent circuitry negative inspector or typing errors, or uncorrected word substitutions Although every attempt has been made by the provider to proofread this document, occasional misspellings and typographical errors may still be present Due to the previous pandemic, and the use of personal protective equipment (PPE) This may decrease voice recognition accuracy Inadvertent circuitry negative inspector errors may occur 09/14/2024 BMI 25.0-25.9,adult (ICD-10 [...] software and direct typing Please excuse inadvertent circuitry negative inspector or typing errors, or uncorrected word substitutions Although every attempt has been made by the provider to proofread this document, occasional misspellings and typographical errors may still be present Due to the previous pandemic, and the use of personal protective equipment (PPE) This may decrease voice recognition accuracy Inadvertent circuitry negative inspector errors may occur 09/14/2024 Overweight (BMI 25.0-29.9) [...] software and direct typing Please excuse inadvertent circuitry negative inspector or typing errors, or uncorrected word substitutions Although every attempt has been made by the provider to proofread this document, occasional misspellings and typographical errors may still be present Due to the previous pandemic, and the use of personal protective equipment (PPE) This may decrease voice recognition accuracy Inadvertent circuitry negative inspector errors may occur 09/14/2024 Dietary counseling and [...] software and direct typing Please excuse inadvertent circuitry negative inspector or typing errors, or uncorrected word substitutions Although every attempt has been made by the provider to proofread this document, occasional misspellings and typographical errors may still be present Due to the previous pandemic, and the use of personal protective equipment (PPE) This may decrease voice recognition accuracy Inadvertent circuitry negative inspector errors may occur 10/19/2024 BMI 24.0-24.9, adult [...] software and direct typing Please excuse inadvertent circuitry negative inspector or typing errors, or uncorrected word substitutions Although every attempt has been made by the provider to proofread this document, occasional misspellings and typographical errors may still be present Due to the previous pandemic, and the use of personal protective equipment (PPE) This may decrease voice recognition accuracy Inadvertent circuitry negative inspector errors may occur 06/21/2025 Dietary counseling and [...] software and direct typing Please excuse inadvertent circuitry negative inspector or typing errors, or uncorrected word substitutions Although every attempt has been made by the provider to proofread this document, occasional misspellings and typographical errors may still be present Due to the previous pandemic, and the use of personal protective equipment (PPE) This may decrease voice recognition accuracy Inadvertent circuitry negative inspector errors may occur 04/12/2025 Dietary counseling and [...] software and direct typing Please excuse inadvertent circuitry negative inspector or typing errors, or uncorrected word substitutions Although every attempt has been made by the provider to proofread this document, occasional misspellings and typographical errors may still be present Due to the previous pandemic, and the use of personal protective equipment (PPE) This may decrease voice recognition accuracy Inadvertent circuitry negative inspector errors may occur 01/17/2025 BMI 24.0-24.9, adult [...] software and direct typing Please excuse inadvertent circuitry negative inspector or typing errors, or uncorrected word substitutions Although every attempt has been made by the provider to proofread this document, occasional misspellings and typographical errors may still be present Due to the previous pandemic, and the use of personal protective equipment (PPE) This may decrease voice recognition accuracy Inadvertent circuitry negative inspector errors may occur 02/22/2025 Dietary counseling and [...] software and direct typing Please excuse inadvertent circuitry negative inspector or typing errors, or uncorrected word substitutions Although every attempt has been made by the provider to proofread this document, occasional misspellings and typographical errors may still be present Due to the previous pandemic, and the use of personal protective equipment (PPE) This may decrease voice recognition accuracy Inadvertent circuitry negative inspector errors may occur 11/23/2024 BMI 24.0-24.9, adult [...] software and direct typing Please excuse inadvertent circuitry negative inspector or typing errors, or uncorrected word substitutions Although every attempt has been made by the provider to proofread this document, occasional misspellings and typographical errors may still be present Due to the previous pandemic, and the use of personal protective equipment (PPE) This may decrease voice recognition accuracy Inadvertent circuitry negative inspector errors may occur 07/27/2024 Overweight (BMI 25.0-29.9) [...] software and direct typing Please excuse inadvertent circuitry negative inspector or typing errors, or uncorrected word substitutions Although every attempt has been made by the provider to proofread this document, occasional misspellings and typographical errors may still be present Due to the previous pandemic, and the use of personal protective equipment (PPE) This may decrease voice recognition accuracy Inadvertent circuitry negative inspector errors may occur 07/27/2024 Dietary counseling and [...] software and direct typing Please excuse inadvertent circuitry negative inspector or typing errors, or uncorrected word substitutions Although every attempt has been made by the provider to proofread this document, occasional misspellings and typographical errors may still be present Due to the previous pandemic, and the use of personal protective equipment (PPE) This may decrease voice recognition accuracy Inadvertent circuitry negative inspector errors may occur 07/27/2024 Type 2 diabetes [...] software and direct typing Please excuse inadvertent circuitry negative inspector or typing errors, or uncorrected word substitutions Although every attempt has been made by the provider to proofread this document, occasional misspellings and typographical errors may still be present Due to the previous pandemic, and the use of personal protective equipment (PPE) This may decrease voice recognition accuracy Inadvertent circuitry negative inspector errors may occur 11/23/2024 Dietary counseling and [...] software and direct typing Please excuse inadvertent circuitry negative inspector or typing errors, or uncorrected word substitutions Although every attempt has been made by the provider to proofread this document, occasional misspellings and typographical errors may still be present Due to the previous pandemic, and the use of personal protective equipment (PPE) This may decrease voice recognition accuracy Inadvertent circuitry negative inspector errors may occur 01/17/2025 Dietary counseling and [...] software and direct typing Please excuse inadvertent circuitry negative inspector or typing errors, or uncorrected word substitutions Although every attempt has been made by the provider to proofread this document, occasional misspellings and typographical errors may still be present Due to the previous pandemic, and the use of personal protective equipment (PPE) This may decrease voice recognition accuracy Inadvertent circuitry negative inspector errors may occur 02/22/2025 Irritable bowel syndrome [...] software and direct typing Please excuse inadvertent circuitry negative inspector or typing errors, or uncorrected word substitutions Although every attempt has been made by the provider to proofread this document, occasional misspellings and typographical errors may still be present Due to the previous pandemic, and the use of personal protective equipment (PPE) This may decrease voice recognition accuracy Inadvertent circuitry negative inspector errors may occur 04/12/2025 BMI 23.0-23.9, adult [...] software and direct typing Please excuse inadvertent circuitry negative inspector or typing errors, or uncorrected word substitutions Although every attempt has been made by the provider to proofread this document, occasional misspellings and typographical errors may still be present Due to the previous pandemic, and the use of personal protective equipment (PPE) This may decrease voice recognition accuracy Inadvertent circuitry negative inspector errors may occur 06/21/2025 BMI 23.0-23.9, adult (ICD-10 - Z68.23) [...] software and direct typing Please excuse inadvertent circuitry negative inspector or typing errors, or uncorrected word substitutions Although every attempt has been made by the provider to proofread this document, occasional misspellings and typographical errors may still be present Due to the previous pandemic, and the use of personal protective equipment (PPE) This may decrease voice recognition accuracy Inadvertent circuitry negative inspector errors may occur 10/19/2024 Dietary counseling and [...] software and direct typing Please excuse inadvertent circuitry negative inspector or typing errors, or uncorrected word substitutions Although every attempt has been made by the provider to proofread this document, occasional misspellings and typographical errors may still be present Due to the previous pandemic, and the use of personal protective equipment (PPE) This may decrease voice recognition accuracy Inadvertent circuitry negative inspector errors may occur 09/14/2024 Type 2 diabetes [...] software and direct typing Please excuse inadvertent circuitry negative inspector or typing errors, or uncorrected word substitutions Although every attempt has been made by the provider to proofread this document, occasional misspellings and typographical errors may still be present Due to the previous pandemic, and the use of personal protective equipment (PPE) This may decrease voice recognition accuracy Inadvertent circuitry negative inspector errors may occur 06/21/2025 Irritable bowel syndrome [...] software and direct typing Please excuse inadvertent circuitry negative inspector or typing errors, or uncorrected word substitutions Although every attempt has been made by the provider to proofread this document, occasional misspellings and typographical errors may still be present Due to the previous pandemic, and the use of personal protective equipment (PPE) This may decrease voice recognition accuracy Inadvertent circuitry negative inspector errors may occur 04/12/2025 Irritable bowel syndrome [...] software and direct typing Please excuse inadvertent circuitry negative inspector or typing errors, or uncorrected word substitutions Although every attempt has been made by the provider to proofread this document, occasional misspellings and typographical errors may still be present Due to the previous pandemic, and the use of personal protective equipment (PPE) This may decrease voice recognition accuracy Inadvertent circuitry negative inspector errors may occur 02/22/2025 Encounter for examination [...] software and direct typing Please excuse inadvertent circuitry negative inspector or typing errors, or uncorrected word substitutions Although every attempt has been made by the provider to proofread this document, occasional misspellings and typographical errors may still be present Due to the previous pandemic, and the use of personal protective equipment (PPE) This may decrease voice recognition accuracy Inadvertent circuitry negative inspector errors may occur 01/17/2025 Irritable bowel syndrome [...] software and direct typing Please excuse inadvertent circuitry negative inspector or typing errors, or uncorrected word substitutions Although every attempt has been made by the provider to proofread this document, occasional misspellings and typographical errors may still be present Due to the previous pandemic, and the use of personal protective equipment (PPE) This may decrease voice recognition accuracy Inadvertent circuitry negative inspector errors may occur 11/23/2024 Irritable bowel syndrome [...] software and direct typing Please excuse inadvertent circuitry negative inspector or typing errors, or uncorrected word substitutions Although every attempt has been made by the provider to proofread this document, occasional misspellings and typographical errors may still be present Due to the previous pandemic, and the use of personal protective equipment (PPE) This may decrease voice recognition accuracy Inadvertent circuitry negative inspector errors may occur 02/22/2025 BMI 23.0-23.9, adult [...] software and direct typing Please excuse inadvertent circuitry negative inspector or typing errors, or uncorrected word substitutions Although every attempt has been made by the provider to proofread this document, occasional misspellings and typographical errors may still be present Due to the previous pandemic, and the use of personal protective equipment (PPE) This may decrease voice recognition accuracy Inadvertent circuitry negative inspector errors may occur 04/12/2025 Encounter for examination [...] software and direct typing Please excuse inadvertent circuitry negative inspector or typing errors, or uncorrected word substitutions Although every attempt has been made by the provider to proofread this document, occasional misspellings and typographical errors may still be present Due to the previous pandemic, and the use of personal protective equipment (PPE) This may decrease voice recognition accuracy Inadvertent circuitry negative inspector errors may occur 06/21/2025 Encounter for examination [...] software and direct typing Please excuse inadvertent circuitry negative inspector or typing errors, or uncorrected word substitutions Although every attempt has been made by the provider to proofread this document, occasional misspellings and typographical errors may still be present Due to the previous pandemic, and the use of personal protective equipment (PPE) This may decrease voice recognition accuracy Inadvertent circuitry negative inspector errors may occur 08/31/2024 #Weight Management 08/31/2024 [...] software and direct typing Please excuse inadvertent circuitry negative inspector or typing errors, or uncorrected word substitutions Although every attempt has been made by the provider to proofread this document, occasional misspellings and typographical errors may still be present Due to the previous pandemic, and the use of personal protective equipment (PPE) This may decrease voice recognition accuracy Inadvertent circuitry negative inspector errors may occur 06/07/2025 #Weight Management 06/07/2025 [...] software and direct typing Please excuse inadvertent circuitry negative inspector or typing errors, or uncorrected word substitutions Although every attempt has been made by the provider to proofread this document, occasional misspellings and typographical errors may still be present Due to the previous pandemic, and the use of personal protective equipment (PPE) This may decrease voice recognition accuracy Inadvertent circuitry negative inspector errors may occur 06/21/2025 #Weight Management 06/21/2025 Continue maintenance dosing Thriving [...] software and direct typing Please excuse inadvertent circuitry negative inspector or typing errors, or uncorrected word substitutions Although every attempt has been made by the provider to proofread this document, occasional misspellings and typographical errors may still be present Due to the previous pandemic, and the use of personal protective equipment (PPE) This may decrease voice recognition accuracy Inadvertent circuitry negative inspector errors may occur Plan Of Treatment Next Appt Details Provider Name:JONATAN MCNAMARABENJI, 08/16/2025 10:00:00 AM, [address] [facility], [place], [address], Insurance Providers Payer Name Payer Address Payer Phone Subscriber Number Group Number Insured Name Patient Relationship to Insured Coverage Start Date Coverage End Date [address] [place], [place] [id number] Annia Montelongo Self - patient is the insured [address] [place] [address] [id number] Annia Montelongo Self - patient is the insured 2 Medical (General) History Medical History History ICD Code type II diabetes asthma headache kidney stones anxiety Surgical History Surgery Date(Month/Year) cholecystectomy
== END 2025-06-27 14:40 | disposition home or self-care (01) ==
PROVIDERS: PCP Internal Medicine; Visit Provider Physician Assistant
DX: Z13.9 Encounter for screening, unspecified (principal); N30.01 Acute cystitis with hematuria

== ENCOUNTER 2025-07-15 09:54 | Outpatient (AMB) | payer OTHER, SELFPAY ==
--- OUTSIDE RECORDS SUMMARY | 2024-08-31 05:30 | XMS_ITS ---
Author Organization [facility] Address [address] [place] [address] Care Team Providers Care Distiller Name Role Phone JONATAN MOISE Unavailable [phone] Medications Medication SIG (Take, Route, Frequency, Duration) Notes Start Date End Date Status Mounjaro 2.5 MG/0.5ML Solution Pen-injector 2.5mg Subcutaneous weekly; Duration: 30 days Active Encounters Encounter Location Date Provider Diagnosis [facility] [address] [place] [address] 08/31/2024 JONATAN MOISE BMI 26.0-26.9,adult Z68.26 ; Overweight (BMI 25.0-29.9) E66.3 ; Dietary counseling and surveillance Z71.3 and Type 2 diabetes mellitus without complication, without long-term current use of insulin E11.9 Assessments Encounter Date Diagnosis (ICD Code) Assessment Notes Treatment Notes Treatment Clinical Notes Section Notes 08/31/2024 BMI 26.0-26.9,adult (ICD-10 - Z68.26) #Weight Management 08/31/2024 Body composition analysis improving with improving fat mass and waist circumference She is thriving and now euglycemic She will continue 5 mg dosing Labs reviewed Time spent today was 30 minutes, greater than 50% on coordination and counseling Patient has been found with a BMI of (26). We discussed in detail the management of diabetes mellitus. Emphasis was paid on nutrition, low carbohydrate diet with good fat and protein sources, fruits and vegetables was discussed. Exercise was recommended. Incorporation of daily walking into a routine was discussed. A pedometer goal of 10,000 steps was discussed. Management of diabetes mellitus along with medications to treat the condition was discussed. Importance of diabetic foot exam, diabetic eye exam, urine microalbumin analysis annually was discussed. Side effects of diabetic medications were discussed again. Patient agrees to take medications as prescribed and comply with lifestyle modifications. Of note, some information is being carried forward from prior records for informational purposes only and is being cited so that efficiency, safety and quality of the patient's care is not compromised This note was prepared using voice recognition software and direct typing Please excuse inadvertent metal fence erector or typing errors, or uncorrected word substitutions Although every attempt has been made by the provider to proofread this document, occasional misspellings and typographical errors may still be present Due to the previous pandemic, and the use of personal protective equipment (PPE) This may decrease voice recognition accuracy Inadvertent metal fence erector errors may occur 08/31/2024 Overweight (BMI 25.0-29.9) (ICD-10 - E66.3) #Weight Management 08/31/2024 Body composition analysis improving with improving fat mass and waist circumference She is thriving and now euglycemic She will continue 5 mg dosing Labs reviewed Time spent today was 30 minutes, greater than 50% on coordination and counseling Patient has been found with a BMI of (26). We discussed in detail the management of diabetes mellitus. Emphasis was paid on nutrition, low carbohydrate diet with good fat and protein sources, fruits and vegetables was discussed. Exercise was recommended. Incorporation of daily walking into a routine was discussed. A pedometer goal of 10,000 steps was discussed. Management of diabetes mellitus along with medications to treat the condition was discussed. Importance of diabetic foot exam, diabetic eye exam, urine microalbumin analysis annually was discussed. Side effects of diabetic medications were discussed again. Patient agrees to take medications as prescribed and comply with lifestyle modifications. Of note, some information is being carried forward from prior records for informational purposes only and is being cited so that efficiency, safety and quality of the patient's care is not compromised This note was prepared using voice recognition software and direct typing Please excuse inadvertent metal fence erector or typing errors, or uncorrected word substitutions Although every attempt has been made by the provider to proofread this document, occasional misspellings and typographical errors may still be present Due to the previous pandemic, and the use of personal protective equipment (PPE) This may decrease voice recognition accuracy Inadvertent metal fence erector errors may occur 08/31/2024 Dietary counseling and surveillance (ICD-10 - Z71.3) #Weight Management 08/31/2024 Body composition analysis improving with improving fat mass and waist circumference She is thriving and now euglycemic She will continue 5 mg dosing Labs reviewed Time spent today was 30 minutes, greater than 50% on coordination and counseling Patient has been found with a BMI of (26). We discussed in detail the management of diabetes mellitus. Emphasis was paid on nutrition, low carbohydrate diet with good fat and protein sources, fruits and vegetables was discussed. Exercise was recommended. Incorporation of daily walking into a routine was discussed. A pedometer goal of 10,000 steps was discussed. Management of diabetes mellitus along with medications to treat the condition was discussed. Importance of diabetic foot exam, diabetic eye exam, urine microalbumin analysis annually was discussed. Side effects of diabetic medications were discussed again. Patient agrees to take medications as prescribed and comply with lifestyle modifications. Of note, some information is being carried forward from prior records for informational purposes only and is being cited so that efficiency, safety and quality of the patient's care is not compromised This note was prepared using voice recognition software and direct typing Please excuse inadvertent metal fence erector or typing errors, or uncorrected word substitutions Although every attempt has been made by the provider to proofread this document, occasional misspellings and typographical errors may still be present Due to the previous pandemic, and the use of personal protective equipment (PPE) This may decrease voice recognition accuracy Inadvertent metal fence erector errors may occur 08/31/2024 Type 2 diabetes mellitus without complication, without long-term current use of insulin (ICD-10 - E11.9) #Weight Management 08/31/2024 Body composition analysis improving with improving fat mass and waist circumference She is thriving and now euglycemic She will continue 5 mg dosing Labs reviewed Time spent today was 30 minutes, greater than 50% on coordination and counseling Patient has been found with a BMI of (26). We discussed in detail the management of diabetes mellitus. Emphasis was paid on nutrition, low carbohydrate diet with good fat and protein sources, fruits and vegetables was discussed. Exercise was recommended. Incorporation of daily walking into a routine was discussed. A pedometer goal of 10,000 steps was discussed. Management of diabetes mellitus along with medications to treat the condition was discussed. Importance of diabetic foot exam, diabetic eye exam, urine microalbumin analysis annually was discussed. Side effects of diabetic medications were discussed again. Patient agrees to take medications as prescribed and comply with lifestyle modifications. Of note, some information is being carried forward from prior records for informational purposes only and is being cited so that efficiency, safety and quality of the patient's care is not compromised This note was prepared using voice recognition software and direct typing Please excuse inadvertent metal fence erector or typing errors, or uncorrected word substitutions Although every attempt has been made by the provider to proofread this document, occasional misspellings and typographical errors may still be present Due to the previous pandemic, and the use of personal protective equipment (PPE) This may decrease voice recognition accuracy Inadvertent metal fence erector errors may occur Plan Of Treatment Medication Medication Name Sig Start Date Stop Date Notes Mounjaro 2.5 MG/0.5ML Solution Pen-injector 2.5mg Subcutaneous weekly; Duration: 30 days Next Appt Details Provider Name:JONATAN MOISE, 08/16/2025 10:00:00 AM, [address], [place], [address], History and Physical Notes * HPI (History of Present Illness) Category Sub-Category Detail Notes Category Not es Constitutional Patient here today for a weight management followup visit Patient seen and examined. Full past medical history, social history, family history, allergies and current medications were reviewed and updated. Body composition analysis reviewed today #Weight Management 08/31/2024 Labs reviewed reporting constipation, early satiety, apettite suppresion on Mounjaro 5mg Injects Monday labs reviewed via [facility]/ PCP down additional 6lbs of fat mass She has a diagnosis of type 2 diabetes Her in office A1c today 5.4 indicating euglycemic Her A1c was as high as 9 in the past she tells me Neuropathy was an obstacle to exercise tolerance, scheduled for foot surgery with More ganglion removal left foot 12/2022 but pt reports it has been progressively getting better. Mild intermittent nausea, otherwise no side effects. At night time she stills gets very hungry after 8-9pm. 08/31/2024, Weight , BMI 07/27/2024, Weight 133lbs , BMI 26 (-7lbs) 06/22/2024, Weight 140lbs , BMI 27.5 (-5lbs) 05/18/2024, Weight 145lbs , BMI 28 (+11lbs) 05/24/23: Weight 134lbs, BMI 26 12/07/22 Weight 131lbs, BMI 25, (-4lbs) 09/26/22: Weight 135lbs, BMI, (-10lbs) 07/21/22: Weight 145lbs, BMI 28, (-8lbs) 06/15/22: Weight 153.55lb BM30 (-12lbs) 05/10/2022: Weight 165 lbs, BMI 32 Patient works as unemployed, recently moved from [place] Highest weight: 165 lbs Lowest weight: 110lbs Goal weight: 115-120 lbs CASANDRA screening, refused. Metabolic workup: labs 07/2024 renal, lfts, lytes stable glucose 91 total chol 210, LDL 121, trigs 221, hdl 45, alk phos 77 Diet: nightime cravings are problematic, not counting calories Exercise: Currently not tracking steps daily. does go to [employer], left foot pain hinders this a bit schedled to see weed thinner Non-smoker. -ETOH use: Examination Category Sub-Category Detail Notes Category Not es General Examination GENERAL APPEARANCE: in no ac sherri distress, well developed, well nourished HEAD: normocephalic, atrau matic EYES: pupils equal, round, reactive to light and accommodation EARS: normal THROAT: clear NECK/THYROID: neck supple, full ra nge of motion, no cervical lymphadenopathy HEART: no murmurs, regular rate and rhythm, S1, S2 normal LUNGS: clear to auscultatio n bilaterally ABDOMEN: normal, bowel sounds present, soft, nontender, nondistended NEUROLOGIC: nonfocal, motor stre ngth normal upper and lower extremities, sensory exam intact SKIN: no suspicious lesion s, warm and dry EXTREMITIES: no clubbing, cyanosi s, or edema ORAL CAVITY: mucosa moist Progress Notes * Annia MONTELONGODOB: [birth year] (55 yo F)Acc No.[id number]:08/31/2024 Patient: Annia Riddle Provider: Carlitos MOISE NP :1970 A ge:54 Y S ex:Female Date:08/31/2024 Address:[address] [place], [place] [id number] Subjective: * Chief Complaints: * HPI: C onstitutional: Patient here today for a weight management followup visit Patient seen and examined. Full past medical history, social history, family history, allergies and current medications were reviewed and updated. Body composition analysis reviewed today #Weight Management 08/31/2024 Labs reviewed reporting constipation, early satiety, apettite suppresion on Mounjaro 5mg Injects Monday labs reviewed via [facility]/ PCP down additional 6lbs of fat mass She has a diagnosis of type 2 diabetes Her in office A1c today 5.4 indicating euglycemic Her A1c was as high as 9 in the past she tells me Neuropathy was an obstacle to exercise tolerance, scheduled for foot surgery with More ganglion removal left foot 12/2022 but pt reports it has been progressively getting better. Mild intermittent nausea, otherwise no side effects. At night time she stills gets very hungry after 8-9pm. 08/31/2024, Weight , BMI 07/27/2024, Weight 133lbs , BMI 26 (-7lbs) 06/22/2024, Weight 140lbs , BMI 27.5 (-5lbs) 05/18/2024, Weight 145lbs , BMI 28 (+11lbs) 05/24/23: Weight 134lbs, BMI 26 12/07/22 Weight 131lbs, BMI 25, (-4lbs) 09/26/22: Weight 135lbs, BMI, (-10lbs) 07/21/22: Weight 145lbs, BMI 28, (-8lbs) 06/15/22: Weight 153.55lb BM30 (-12lbs) 05/10/2022: Weight 165 lbs, BMI 32 Patient works as unemployed, recently moved from [place] Highest weight: 165 lbs Lowest weight: 110lbs Goal weight: 115-120 lbs CASANDRA screening, refused. Metabolic workup: labs 07/2024 renal, lfts, lytes stable glucose 91 total chol 210, LDL 121, trigs 221, hdl 45, alk phos 77 Diet: nightime cravings are problematic, not counting calories Exercise: Currently not tracking steps daily. does go to [employer], left foot pain hinders this a bit schedled to see weed thinner Non-smoker. -ETOH use:. * ROS: A ll Other Systems: Review of Systems (ROS) A ll others negative except those mentioned in HPI. Objective: * Examination: G eneral Examination: GENERAL APPEARANCE: i n no acute distress, well developed, well nourished. HEAD: n ormocephalic, atraumatic. EYES: p upils equal, round, reactive to light and accommodation. EARS: n ormal. ORAL CAVITY: m ucosa moist. THROAT: c lear. NECK/THYROID: n misael supple, full range of motion, no cervical lymphadenopathy. SKIN: n o suspicious lesions, warm and dry. HEART: n o murmurs, regular rate and rhythm, S1, S2 normal.? LUNGS: c lear to auscultation bilaterally. ABDOMEN: n ormal, bowel sounds present, soft, nontender, nondistended. EXTREMITIES: n o clubbing, cyanosis, or edema. NEUROLOGIC: n onfocal, motor strength normal upper and lower extremities, sensory exam intact. Assessment: * Assessment: 1. O verweight (BMI 25.0-29.9) - E66.3 (Primary) 2 . B HI 26.0-26.9,adult - Z68.26 3 . D ietary counseling and surveillance - Z71.3 4 .?Type 2 diabetes mellitus without complication, without long-term current use of insulin - E11.9? #Weight Management 08/31/2024 Body composition analysis improving with improving fat mass and waist circumference She is thriving and now euglycemic She will continue 5 mg dosing Labs reviewed Time spent today was 30 minutes, greater than 50% on coordination and counseling Patient has been found with a BMI of (26). We discussed in detail the management of diabetes mellitus. Emphasis was paid on nutrition, low carbohydrate diet with good fat and protein sources, fruits and vegetables was discussed. Exercise was recommended. Incorporation of daily walking into a routine was discussed. A pedometer goal of 10,000 steps was discussed. Management of diabetes mellitus along with medications to treat the condition was discussed. Importance of diabetic foot exam, diabetic eye exam, urine microalbumin analysis annually was discussed. Side effects of diabetic medications were discussed again. Patient agrees to take medications as prescribed and comply with lifestyle modifications. Of note, some information is being carried forward from prior records for informational purposes only and is being cited so that efficiency, safety and quality of the patient's care is not compromised This note was prepared using voice recognition software and direct typing Please excuse inadvertent metal fence erector or typing errors, or uncorrected word substitutions Although every attempt has been made by the provider to proofread this document, occasional misspellings and typographical errors may still be present Due to the previous pandemic, and the use of personal protective equipment (PPE) This may decrease voice recognition accuracy Inadvertent metal fence erector errors may occur. Plan: * Treatment: * Electronic signature of BERNADETTE MOISE on 07/15/2025 at 11:14 AM EST Sign off status: Pending * Provider: Carlitos MOISE NP Date: 11/01/2023 Generated for Christopher kim/Yaa/Hoa on: 09/14/2024 11:14 AM EST
--- OUTSIDE RECORDS SUMMARY | 2025-06-07 05:00 | XMS_ITS ---
Author Organization [facility] Address [address] [place] [address] Care Team Providers Care Route Salesperson Name Role Phone JONATAN MOISE Unavailable [phone] Medications Medication SIG (Take, Route, Frequency, Duration) Notes Start Date End Date Status Contrave 8-90 MG Tablet Extended Release 12 Hour Week 1, take 1 tablet in the morning Week 2 take 1 tablet in the morning, 1 tablet in the evening Week 3 take 2 tablets in the morning, 1 tablet in the evening Week 4 onward 2 tablets in the morning, 2 tablets in the evening Orally twice a day; Duration: 30 days Active Benzonatate Active Melatonin Active Linzess 145 MCG Capsule [address] 30 minutes before the first meal of the day on an empty stomach Orally Once a day; Duration: 30 days Active Omeprazole Active Levocetirizine Dihydrochloride 5 MG Tablet 1 tablet in the evening Orally Once a day Active Potassium Active Meloxicam Active Magnesium 250 MG Capsule 1 capsule Orall y Once a day Active B Complex Active Mounjaro 5 MG/0.5ML Solution Auto-injector 5mg Subcutaneous weekly; Duration: 28 days Active Encounters Encounter Location Date Provider Diagnosis [facility] [address] [place] [address] 06/07/2025 JONATAN JOSE MARIA Type 2 diabetes manasa itus without complication, without long-term current use of insulin E11.9 ; Dietary counseling and surveillance Z71.3 ; BMI 23.0-23.9, adult Z68.23 ; Irritable bowel syndrome with constipation K58.1 and Encounter for examination of blood pressure without abnormal findings Z01.30 Assessments Encounter Date Diagnosis (ICD Code) Assessment Notes Treatment Notes Treatment Clinical Notes Section Notes 06/07/2025 Type 2 diabetes mellitus without complication, without long-term current use of insulin (ICD-10 - E11.9) #Weight Management 06/07/2025 Continue maintenance dosing Thriving Constipation seems to [...] software and direct typing Please excuse inadvertent ui lead developer or typing errors, or uncorrected word substitutions Although every attempt has been made by the provider to proofread this document, occasional misspellings and typographical errors may still be present Due to the previous pandemic, and the use of personal protective equipment (PPE) This may decrease voice recognition accuracy Inadvertent ui lead developer errors may occur 06/07/2025 Dietary counseling and surveillance (ICD-10 - Z71.3) #Weight Management 06/07/2025 Continue maintenance dosing Thriving Constipation seems to [...] software and direct typing Please excuse inadvertent ui lead developer or typing errors, or uncorrected word substitutions Although every attempt has been made by the provider to proofread this document, occasional misspellings and typographical errors may still be present Due to the previous pandemic, and the use of personal protective equipment (PPE) This may decrease voice recognition accuracy Inadvertent ui lead developer errors may occur 06/07/2025 BMI 23.0-23.9, adult (ICD-10 - Z68.23) #Weight Management 06/07/2025 Continue maintenance dosing Thriving Constipation seems to [...] software and direct typing Please excuse inadvertent ui lead developer or typing errors, or uncorrected word substitutions Although every attempt has been made by the provider to proofread this document, occasional misspellings and typographical errors may still be present Due to the previous pandemic, and the use of personal protective equipment (PPE) This may decrease voice recognition accuracy Inadvertent ui lead developer errors may occur 06/07/2025 Irritable bowel syndrome with constipation (ICD-10 - K58.1) #Weight Management 06/07/2025 Continue maintenance dosing Thriving Constipation seems to [...] software and direct typing Please excuse inadvertent ui lead developer or typing errors, or uncorrected word substitutions Although every attempt has been made by the provider to proofread this document, occasional misspellings and typographical errors may still be present Due to the previous pandemic, and the use of personal protective equipment (PPE) This may decrease voice recognition accuracy Inadvertent ui lead developer errors may occur 06/07/2025 Encounter for examination of blood pressure without abnormal findings (ICD-10 - Z01.30) #Weight Management 06/07/2025 Continue maintenance dosing Thriving Constipation seems to [...] software and direct typing Please excuse inadvertent ui lead developer or typing errors, or uncorrected word substitutions Although every attempt has been made by the provider to proofread this document, occasional misspellings and typographical errors may still be present Due to the previous pandemic, and the use of personal protective equipment (PPE) This may decrease voice recognition accuracy Inadvertent ui lead developer errors may occur Plan Of Treatment Medication Medication Name Sig Start Date Stop Date Notes Contrave 8-90 MG Tablet Extended Release 12 Hour Week 1, take 1 tablet in the morning Week 2 take 1 tablet in the morning, 1 tablet in the evening Week 3 take 2 tablets in the morning, 1 tablet in the evening Week 4 onward 2 tablets in the morning, 2 tablets in the evening Orally twice a day; Duration: 30 days Linzess 145 MCG Capsule [address] 30 minutes before the first meal of the day on an empty stomach Orally Once a day; Duration: 30 days Mounjaro 5 MG/0.5ML Solution Auto-injector 5mg Subcutaneous weekly; Duration: 28 days Next Appt Details Provider Name:JONATAN MOISE, 08/16/2025 10:00:00 AM, [address] [facility], [place], [address], History and Physical Notes * HPI (History of Present Illness) Category Sub-Category Detail Notes Category Not es Constitutional Patient here today for a weight management followup visit Patient seen and examined. Full past medical history, social history, family history, allergies and current medications were reviewed and updated. Body composition analysis reviewed today #Weight Management 06/07/2025 24-hour dietary recall Breakfast: Lunch: Dinner: Snacking: Micronutrients:Mag, MV's on maintenance dosing, Q 2 weeks 5mg Mounjaro, Injects Fridays Linzess helps reporting constipation, early satiety, apettite suppresion Starting to incorporate strength resistance training gym activities Last A1c indicating euglycemia at 5.4, down from over 9's, type 2 DM Patient wants to try contrave for food cravings through a different pathway. Mild intermittent nausea, otherwise no side effects. Non-smoker. ETOH use: no 06/07/2025, Weight , BMI 04/12/2025, Weight 121lbs , BMI 23 02/22/2025, Weight 118lbs , BMI 23 01/17/2025, Weight 121.5, BMI 23 (-2lbs) 11/23/2024, Weight 123lbs , BMI 24 (-3lbs) [...] (-12lbs) 05/10/2022: Weight 165 lbs, BMI 32 Highest weight: 165 lbs Lowest weight: 110lbs Goal weight: 115-120 lbs CASANDRA screening, refused. labs January 2025, [facility] Hemoglobin A1c of 4.8 Renal function electrolytes and LFTs are stable CBC is stable Total cholesterol 210, LDL 132, HDL 62, triglycerides 82 B12, magnesium, iron and folate levels unremarkable TSH 1.32 Examination Category Sub-Category Detail Notes Category Not [...] * Annia MONTELONGODOB: [birth year] (55 yo F)Acc No.[id number]:06/07/2025 Patient: Annia Riddle Provider: Carlitos MOISE NP :1970 A ge:55 Y S ex:Female Date:06/07/2025 Address:[address] [place] [address] [id number] Subjective: * Chief Complaints: * HPI: C onstitutional: Patient here today for a weight management followup visit Patient seen and examined. Full past medical history, social history, family history, allergies and current medications were reviewed and updated. Body composition analysis reviewed today #Weight Management 06/07/2025 24-hour dietary recall Breakfast: Lunch: Dinner: Snacking: Micronutrients:Mag, MV's on maintenance dosing, Q 2 weeks 5mg Mounjaro, Injects Fridays Linzess helps reporting constipation, early satiety, apettite suppresion Starting to incorporate strength resistance training gym activities Last A1c indicating euglycemia at 5.4, down from over 9's, type 2 DM Patient wants to try contrave for food cravings through a different pathway. Mild intermittent nausea, otherwise no side effects. Non-smoker. ETOH use: no 06/07/2025, Weight , BMI 04/12/2025, Weight 121lbs , BMI 23 02/22/2025, Weight 118lbs , BMI 23 01/17/2025, Weight 121.5, BMI 23 (-2lbs) 11/23/2024, Weight 123lbs , BMI 24 (-3lbs) [...] (-12lbs) 05/10/2022: Weight 165 lbs, BMI 32 Highest weight: 165 lbs Lowest weight: 110lbs Goal weight: 115-120 lbs CASANDRA screening, refused. l abs January 2025, [facility] Hemoglobin A1c of 4.8 Renal function electrolytes and LFTs are stable CBC is stable Total cholesterol 210, LDL 132, HDL 62, triglycerides 82 B12, magnesium, iron and folate levels unremarkable TSH 1.32. * ROS: A ll Other Systems: Review of Systems (ROS) A ll others negative except those mentioned in HPI. * Medications: T akingLinzess 145 MCG Capsule 1 capsule at least 30 minutes before the first meal of the day on an empty stomach Orally Once a day Contrave 8-90 MG Tablet Extended Release 12 Hour Week 1, take 1 tablet in the morning Week 2 take 1 tablet in the morning, 1 tablet in the evening Week 3 take 2 tablets in the morning, 1 tablet in the evening Week 4 onward 2 tablets in the morning, 2 tablets in the evening Orally twice a day Mounjaro 5 MG/0.5ML Solution Auto-injector 5mg Subcutaneous weekly Potassium Levocetirizine Dihydrochloride 5 MG Tablet 1 tablet in the evening Orally Once a day B Complex Magnesium 250 MG Capsule 1 capsule Orally Once a day Meloxicam Benzonatate Melatonin Omeprazole Taking Linzess 145 MCG Capsule 1 capsule at least 30 minutes before the first meal of the day on an empty stomach Orally Once a day Taking Contrave 8-90 MG Tablet Extended Release 12 Hour Week 1, take 1 tablet in the morning Week 2 take 1 tablet in the morning, 1 tablet in the evening Week 3 take 2 tablets in the morning, 1 tablet in the evening Week 4 onward 2 tablets in the morning, 2 tablets in the evening Orally twice a day Taking Mounjaro 5 MG/0.5ML Solution Auto-injector 5mg Subcutaneous weekly Taking Potassium Taking Levocetirizine Dihydrochloride 5 MG Tablet 1 tablet in the evening Orally Once a day Taking B Complex Taking Magnesium 250 MG Capsule 1 capsule Orally Once a day Taking Meloxicam Taking Benzonatate Taking Melatonin Taking Omeprazole Objective: * Examination: G eneral Examination: GENERAL [...] sensory exam intact. Assessment: * Assessment: 1. T ype 2 diabetes mellitus without complication, without long-term current use of insulin - E11.9 2 . D ietary counseling and surveillance - Z71.3 3 . B LA 23.0-23.9, adult - Z68.23 4 . I rritable bowel syndrome with constipation - K58.1 5 . E ncounter for examination of blood pressure without abnormal findings - Z01.30 #Weight Management 06/07/2025 Continue maintenance dosing Thriving Constipation seems to [...] software and direct typing Please excuse inadvertent ui lead developer or typing errors, or uncorrected word substitutions Although every attempt has been made by the provider to proofread this document, occasional misspellings and typographical errors may still be present Due to the previous pandemic, and the use of personal protective equipment (PPE) This may decrease voice recognition accuracy Inadvertent ui lead developer errors may occur Plan: * Treatment: 2. I rritable bowel syndrome with constipation Start Linzess Capsule, 145 MCG, 1 capsule at least 30 minutes before the first meal of the day on an empty stomach, Orally, Once a day, 30 days, 30, Refills 5. * Electronic signature of BERNADETTE MOISE on 07/15/2025 at 11:14 AM EST Sign off status: Pending * Provider: Carlitos MOISE NP Date: Generated for Christopher kim/Yaa/Hoa on: 09/14/2024 11:14 AM EST
[2025-07-15 10:05] VITALS: BP 102/66; PULSE 79; TEMP 36.8; O2SAT 96; BMI 23.8
--- NOTE | 2025-07-15 10:05 | MHC.OFFWIV ---
Intake Vital Signs 07/15/25 10:05 Height 5 ft Weight 122 lb BMI 23.8 BP 102/66 Blood Pressure Location Lt brachial Position Sitting Pulse 79 Pulse Source Pulse Oximeter Temp 98.2 F Temp Source Oral Pulse Oximetry (%) 96 Oxygen Delivery Method Room Air Intake Visit Reasons: EP UTI Patient Tobacco Use Status: Never used Tobacco Allergies iodine Allergy (Intermediate, Verified 07/15/25 10:05) RASH ibuprofen (From Advil) Adverse Reaction (Severe, Verified 07/15/25 10:05) tachycardia shellfish derived Adverse Reaction (Mild, Verified 07/15/25 10:05) Nausea and Vomiting Do you need a note to return to daycare/school/sports/work: No HPI HPI Comments History of Present Illness Details - The patient is a 55-year-old female presenting with recurrent urinary tract infection symptoms, again. - The patient initially presented with a urinary tract infection on June 02, treated with Cefuroxime 500 mg BID for 7 days. she took the medication in full. - The culture grew Klebsiella, which was sensitive to some cephalosporins, but the infection persisted. - On June 16, the patient returned with similar symptoms and was treated with Ciprofloxacin 750 mg for five days, later reduced to 250 mg due to heart palpitations. - The infection persisted, and Klebsiella was again identified. She was given Cipro 500mg x5 days. - The patient reports current symptoms of burning during urination, pelvic pain, and back pain, with no visible blood in urine. - The patient has been using phenazopyridine for pain management, which she finds helpful. - She thinks she had 3 days of feeling good since her last infection. - The patient is scheduled to see a urogynecologist in August for further evaluation. FORMERLY [facility], [facility] Medical History (Updated 07/15/25 @ 10:30 by Chhaya Hanna PA-C) Cystitis Hepatic steatosis GERD (gastroesophageal reflux disease) Obesity (BMI 30-39.9) Diabetes Surgical History Hx laparoscopic cholecystectomy Hx of tubal ligation Family History (Updated 08/09/22 @ 11:10 by JASBIR Wilson) Mother Diabetes Father Diabetes Myocardial infarct Hypertension Social History (Updated 06/27/25 @ 14:12 by Shanique Mccullough CMA) Household Members: Spouse Alcohol intake: current Alcohol intake frequency: does not drink Patient Tobacco Use Status: Never used Tobacco Current occupational status: unemployed Physical Exam Vital Signs: Last Vital Signs Temp 98.2 F 07/15/25 10:05 Pulse 79 07/15/25 10:05 BP 102/66 07/15/25 10:05 Pulse Ox 96 07/15/25 10:05 Oxygen Delivery Method Room Air 07/15/25 10:05 BMI result Body Mass Index 23.8 Results AMB Urinalysis, Automated UA Leukoctes 0 Alireza/uL Last Edit by Sera Bateman CMA on 07/15/25 10:06 UA Nitrite Positive Last Edit by Sera Bateman CMA on 07/15/25 10:06 UA Urobilinogen 0.2 mg/dL Last Edit by Sera Bateman CMA on 07/15/25 10:06 UA Protein 15 mg/dL Last Edit by Sera Bateman CMA on 07/15/25 10:06 UA pH 6.0 Last Edit by Sera Bateman CMA on 07/15/25 10:06 UA Blood 10 Srikanth/uL Last Edit by Sera Bateman CMA on 07/15/25 10:06 UA Specific Schneider 1.030 Last Edit by Sera Bateman CMA on 07/15/25 10:06 UA Ketone Negative Last Edit by Sera Bateman CMA on 07/15/25 10:06 UA Bilirubin 0 mg/dL Last Edit by Sera Bateman CMA on 07/15/25 10:06 UA Glucose 0 mg/dL Last Edit by Sera Bateman CMA on 07/15/25 10:06 Results Reviewed Results Reviewed: Laboratory Last Values Urine pH (Auto) 6.0 07/15/25 10:05 Specific Schneider (Auto) 1.030 07/15/25 10:05 Urine Protein (Auto) 15 mg/dL 07/15/25 10:05 Glucose (UA)(Auto) 0 mg/dL 07/15/25 10:05 Urine Ketones (Auto) Negative 07/15/25 10:05 Urine Blood (Auto) 10 Srikanth/uL 07/15/25 10:05 Urine Nitrite (Auto) Positive A* 07/15/25 10:05 Urine Bilirubin (Auto) 0 mg/dL 07/15/25 10:05 Urine Urobilinogen (Auto) 0.2 mg/dL 07/15/25 10:05 Leukocyte Esterase (Auto) 0 Alireza/uL 07/15/25 10:05 Assessment & Plan Assessment & Plan (1) Complicated UTI (urinary tract infection): Code(s): N39.0 - Urinary tract infection, site not specified Plan: Plan Patient was informed and verbally consented to the use of an ambient scribe for clinic note documentation during this visit. Recurrent Urinary Tract Infections - Difficult to say she is failing outpatient antibiotics as she does become asymptomatic for 4-5 days at a time and we did have her do a UA in the office which showed no infection in between. So the recurrence is likely due to menopause/low estrogen so we prescribed premarin cream for her to use twice a week. She will inform me weekly as to how she is doing. - Prescribed cefuroxime for 7 to 10 days, with instructions to stop after 7 days if symptoms resolve. - Advised to use estrogen cream twice weekly to help prevent further infections. - Scheduled follow-up with a urogynecologist in August for further evaluation. - sent Diflucan because patient states she gets yeast infections when she takes antibiotics - also sent Pyridium for pain Orders: Orders AMB Urinalysis Automated Today Mya Simon PA-C Z13.9 - Encounter for screening, unspecified Medications: New conjugated estrogens (Premarin) off 5 days; repeat cycle 0.625 mg vaginal 2XW 30 grams 0RF Chhaya Hanna PA-C cefuroxime axetil 500 mg PO Q12H 20 tabs 0RF Chhaya Hanna PA-C fluconazole may repeat second dose 72 hrs after first dose if symptoms persist 150 mg PO Q3D 2 tabs 0RF Chhaya Hanna PA-C phenazopyridine 200 mg (2 x 100 mg) PO Q8H PRN 6 tabs 0RF Pain Chhaya Hanna PA-C Coding Level of Care Code New Pt Level 4 (24940) Diagnoses Complicated UTI (urinary tract infection) N39.0
--- OUTSIDE RECORDS SUMMARY | 2025-07-15 11:14 | XMS_ITS | Encounter Summary ---
Author Organization [facility] Address [address] [place] [address] Care Team Providers Care Lining Cutter Name Role Phone Janett Lopez Primary Care Provider + Encounter Details Date Type Department Care Team ([facility] Contact Info) Description 06/22/2025 Results Follow-Up Internal Medicine - [place] [address] [place] [phone] Rekha Camp MD [address] [place] [phone] Social History Tobacco Use Types Packs/Day Years [...] your loved ones. For example, child care center assistant director or elderly care for an older [...] Start Date Job End Date patient registration [employer] Not on file Not on file Not on file documented as of this encounter Plan of Treatment Upcoming Encounters Date Type Department Care Team (Late st Contact Info) Description 11/06/2025 4:00 PM EST Office Visit Internal Medicine - [place] [address] [place] [address] Janett Lopez PA [address] [place] [phone] documented as of this encounter Visit Diagnoses Not on filedocumented in this encounter Additional Health Concerns Assessment Noted Time PHQ-9 Depression Total Score: 0 10/05/19 25 10:26 AM EST documented as of this encounter Care Teams Lining Cutter Relationship Specialty Start Date End Date Janett Lopez PA [address] [place] [address] PCP - General Internal Medicine 10/21/21 documented as of this encounter
--- OUTSIDE RECORDS SUMMARY | 2025-07-15 11:14 | XMS_ITS | Clinical Summary ---
Author Organization [address] [place] [address] [place] [phone] Phone Care Team Providers Care Hot Patcher Name Role Phone Janett Lopez Primary Care [...] TWICE DAILY NEEDED 4 Active diphenhydramine- aluminum-magnesi gd-ujbimbejbou-v idocaine (MAGIC MOUTHWASH) [phone] 0 mg/30 mL liquid suspensionIndica tions:Sore throat Use 10 mL in the mouth or throat 4 (four) times a day. 280 mL 4 Active vitamin B complex-folic acid (B Complex 1, with folic acid,) 0.4 mg tablet Take 1 tablet by mouth 1 (one) time each day. Active omega 3-pzi-hlo-fish oil (Fish OiL) 1,200 (144-216) mg capsule [...] type 2 (diabetes mellitus , type 2) (CMS/[facility] V24, [facility] V28) 10/17/2021 Obesity (BMI 30-39.9) 10/14/2021 GERD (gastroesophageal reflux disease) 2 Hepatic steatosis 10/14/2021 Hyperlipidemia Encounters Date Type Department Care Team Description 06/22/2025 Results Follow-Up Internal Medicine - [place] [address] [place] [phone] Rekha Camp MD 05/08/2025 3:45 PM EDT Office Visit Internal Medicine - [facility] [address] [place] [phone] Janett Lopez PA Perimenopausal vasomotor symptoms (Primary Dx) 05/01/2025 4:00 PM EDT Office Visit Orthopedic Surgery - [facility] [address] [place] [phone] Guillermina Barahona PA Bilateral carpal tunnel syndrome (Primary Dx) from Last 3 Months Immunizations Immunization Administration Dates Next Due Hepatitis B (Qefrmue-N-Teomt , Recombivax HB-Adult) 19yo and older 04/16/2024 Surgical History Surgery Date Site/Laterality Comments TUBAL LIGATION PROCEDURE: HISTORICAL TUBAL LIGATION; COMMENT: around age 39 OTHER SURGICAL HISTORY PROCEDURE: [place] DILATION & CURETTAGE DX&/THER NONOBSTETRIC; COMMENT: due ectopic around age 39 CHOLECYSTECTOMY 08/02/2021 PROCEDURE: [place] LAPAROSCOPY SURG CHOLECYSTECTOMY; COMMENT: due cholelithiasis done at [facility] Medical History Medical History Date Comments Obesity [...] for your loved ones. For example, child day care provider or elderly care for an older adult? [...] PM EST Office Visit Internal Medicine - [facility] [address] [place] [phone] Janett Lopez, PA [address] [place] [address] Health Maintenance Due Date Last Done Comments [...] Date/Time Associated Diagnosis Comments EXTERNAL CLINICAL LAB 06/27/2025 EXTERNAL CLINICAL LAB 06/16/2025 EXTERNAL CLINICAL LAB 06/16/2025 [place] INJECTION CARPAL TUNNEL THERAPEUTIC Routine 05/01/2025 4:00 PM EDT Bilateral carpal tunnel syndrome COMPREHENSIVE METABOLIC PANEL Routine 01/20/2025 3:47 PM EDT Type 2 diabetes mellitus without complication, without long-term current use of insulin ([facility]/HCC V24, CMS/HCC V28) Pure hypercholesterolemia Hepatic steatosis HEMOGLOBIN A1C Routine 01/20/2025 3:47 PM EDT Type 2 diabetes mellitus without complication, without long-term current use of insulin ([facility] V24, [facility] V28) LIPID PANEL WITH REFLEX TO DIRECT LDL Routine 01/20/2025 3:47 PM EDT Pure hypercholesterolemia DIABETES EYE EXAM Routine 03/27/2024 URINE ALBUMIN CREATININE RATIO Routine 03/29/2023 HM HPV Routine 12/02/2022 from Last 3 Months or Most Recently Relevant to Health Maintenance Results * External clinical lab (06/27/2025) Only the most recent of3 resultswithin the time period is included. us Provider [facility] LAB BLOOD ORDERABLES Fin al Result * [place] INJECTION CARPAL TUNNEL THERAPEUTIC (05/01/2025 4:00 PM [...] LAB CHEMISTRY METHOD 01/20/2025 7:37 PM EDT [facility] Triglycerides 132 0 - 150 mg/dL LAB CHEMISTRY METHOD 01/20/2025 7:37 PM EDT [facility] HDL 61 >=40 mg/dL LAB CHEMISTRY METHOD 01/20/2025 7:37 PM EDT [facility] LDL Calculated 128(H) 0 - 100 mg/dL LAB CHEMISTRY METHOD 01/20/2025 7:37 PM EDT [facility] VLDL Cholesterol Cedric 26.4 mg/dL LAB CHEMISTRY METHOD 01/20/2025 7:37 PM EDT [facility] Non HDL Chol. (LDL+VLDL) 154(H) <145 mg/dL LAB CHEMISTRY METHOD 01/20/2025 7:37 PM EDT [facility] Chol/HDL Ratio 3.5 0.0 - 4.4 LAB CHEMISTRY METHOD 01/20/2025 7:37 PM EDT [facility] Blood Venous blood specimen / Unknown Venipuncture / Unknown 01/20/2025 3:47 PM EDT 01/20/2025 3:47 PM EDT us Janett GÓMEZ LAB BLOOD ORDERABLES Fin al Result [facility] [address] [place] [address], [place] [phone] * Hemoglobin A1c (01/20/2025 3:47 PM EDT) Hemoglobin A1C 4.8 <6.5 % LAB CHEMISTRY METHOD 01/20/2025 10:03 PM EDT [facility] Mean Bld Glu Estim. 91 mg/dL LAB CHEMISTRY METHOD 01/20/2025 10:03 PM [facility] Blood Venous blood specimen / Unknown Venipuncture / Unknown 01/20/2025 3:47 PM EDT 01/20/2025 3:47 PM EDT us Janett GÓMEZ LAB BLOOD ORDERABLES Fin al Result [facility] [address] [place] [address], [place] [phone] * (ABNORMAL) Comprehensive metabolic panel (01/20/2025 3:47 PM EDT) Sodium 139 133 - 145 mmol/L LAB CHEMISTRY METHOD 01/20/2025 7:37 PM [facility] Potassium 4.1 3.5 - 5.5 mmol/L LAB CHEMISTRY METHOD 01/20/2025 7:37 PM [facility] Chloride 104 96 - 110 mmol/L LAB CHEMISTRY METHOD 01/20/2025 7:37 PM [facility] CO2 28 21 - 32 mmol/L LAB CHEMISTRY METHOD 01/20/2025 7:37 PM [facility] Anion Gap 7 3 - 11 LAB CHEMISTRY METHOD 01/20/2025 7:37 PM [facility] Glucose 60(L) 70 - 100 mg/dL LAB CHEMISTRY METHOD 01/20/2025 7:37 PM [facility] BUN 17 5 - 25 mg/dL LAB CHEMISTRY METHOD 01/20/2025 7:37 PM [facility] Creatinine 0.82 0.50 - 1.10 mg/dL LAB CHEMISTRY METHOD 01/20/2025 7:37 PM [facility] eGFR 86 >=60 mL/min/1. 73m2 LAB CHEMISTRY METHOD 01/20/2025 7:37 PM EDT [facility] Comment:Calculation based on the Chronic Kidney Disease Epidemiology Collaboration (CKD-EPI) equation refit without adjustment for race. BUN/Creatinine Ratio 20.7 LAB CHEMISTRY METHOD 01/20/2025 7:37 PM EDT [facility] Calcium 8.8 8.5 - 10.5 mg/dL LAB CHEMISTRY METHOD 01/20/2025 7:37 PM EDT [facility] AST (SGOT) 25 10 - 42 unit/L LAB CHEMISTRY METHOD 01/20/2025 7:37 PM [facility] ALT (SGPT) 38 10 - 60 unit/L LAB CHEMISTRY METHOD 01/20/2025 7:37 PM [facility] Alkaline Phosphatase 96 42 - 121 unit/L LAB CHEMISTRY METHOD 01/20/2025 7:37 PM T [facility] Total Protein 7.7 6.0 - 8.0 g/dL LAB CHEMISTRY METHOD 01/20/2025 7:37 PM [facility] Albumin 4.1 3.2 - 5.0 g/dL LAB CHEMISTRY METHOD 01/20/2025 7:37 PM [facility] Total Bilirubin 0.5 0.0 - 1.4 mg/dL LAB CHEMISTRY METHOD 01/20/2025 7:37 PM T [facility] Blood Venous blood specimen / Unknown Venipuncture / Unknown 01/20/2025 3:47 PM EDT 01/20/2025 3:47 PM EDT us Janett GÓMEZ LAB BLOOD ORDERABLES Fin al Result [facility] [address] [place] [address], * Diabetes Eye Exam (03/27/2024) Pathologist [facility] Diabetes: Annual Retina Eye Exam Abstracted Historical Provider HEALTH MAINTENANCE Final Result * Urine Albumin Creatinine Ratio (03/29/2023) Pathologist [facility] Urine Albumin Creatinine Ratio Abstracted Historical Provider MD HEALTH MAINTENANCE Final Result * Cervical Cancer Screening: HPV (12/02/2022) [facility] Cervical Cancer Screening: HPV Abstracted, Negative Historical Provider HEALTH MAINTENANCE Final Result from Last 3 Months or Most Recently Relevant to Health Maintenance Insurance [facility] Care Teams Hot Patcher Relationship Specialty Start Date End Date Janett Lopez PA [address] [place] [address] PCP - General Internal Medicine 10/21/21
--- OUTSIDE RECORDS SUMMARY | 2025-07-15 11:15 | XMS_ITS | Patient Health Record ---
Author Organization [facility] Address [address] [place] [address] Care Team Providers Care Architect Naval Name Role Phone JONATAN MOISE Unavailable [phone] Allergies Allergen (clinical drug ingredient) Drug/Non Drug Allergy documented on EMR Reaction Allergy Type Onset Date Status Iodine hives Drug Allergy Active shrimp allergenic extract Shrimp (Diagnostic) Unknown Drug Allergy Active Reason For Referral No Information Medications Medication SIG (Take, Route, Frequency, Duration) Notes Start Date End Date Status Omeprazole Active Mounjaro 5 MG/0.5ML Solution Auto-injector 5mg Subcutaneous weekly; Duration: 28 days Active B Complex Active Magnesium 250 MG Capsule 1 capsule Orall y Once a day Active Linzess 145 MCG Capsule [address] 30 minutes before the first meal of the day on an empty stomach Orally Once a day; Duration: 30 days Active Potassium Active Contrave 8-90 MG Tablet Extended Release 12 [...] 30 days Active Levocetirizine Dihydrochloride 5 MG Tablet 1 tablet in the evening Orally Once a day Active Meloxicam Active Benzonatate Active Melatonin Active Social History Tobacco Use: Social History Observation Description Date Details (start date - stop date) Never Smoker NA - NA Social History Drugs/Alcohol: Social Info Question Answer Notes Alcohol Screen (Audit-C) Did you have a drink containing alcohol in the past year? No Points 0 Interpretation Negative Drugs Have you used drugs other than those for medical reasons in the past 12 months? No Tobacco Use: Social Info Question Answer Notes Tobacco Use/Smoking Are you a nonsmoker Additional Details Category Social Info Options Details Drugs/Alcohol: Do you smoke marijuana? De nies Do you drink alcohol? No Section Notes: - - - - - - - - - - - - Problems Problem Type SNOMED Code ICD Code Onset Dates Problem Status W/U Status Risk Notes Problem Obesity due to excess calories (301647424) Other obesity due to excess calories (E66.09) Active confirmed Problem Irritable bowel syndrome characterized by constipation (586609606) Irritable bowel syndrome with constipation (K58.1) Active confirmed Problem Type II diabetes mellitus without complication (195653620) Type 2 diabetes mellitus without complication, without long-term current use of insulin (E11.9) Active confirmed Problem Body mass index 30.00 to 34.99 (333194320007421) Body mass index [BMI] 32.0-32.9, adult (Z68.32) Active confirmed Problem Body mass index 30+ - obesity (940947366) BMI 30.0-30.9,adult (Z68.30) Active confirmed Problem Overweight (403650356) Overweight (BMI 25.0-29.9) (E66.3) Active confirmed Vital Signs Heart Rate 72 /min 06/21/2025 Oximetry 98 % 06/21/2025 Blood pressure diastolic 76 mm Hg 06/21/2025 Height 60 in 06/21/2025 Blood pressure systolic 124 mm Hg 06/21/2025 Weight 123 lbs 06/21/2025 BMI 24.02 kg/m2 06/21/2025 Encounters Encounter Location Date Provider Diagnosis [facility] [address] [place] [address] 07/27/2024 JONATAN MOISE BMI 26.0-26.9,adult Z68.26 ; Overweight (BMI 25.0-29.9) E66.3 ; Dietary counseling and surveillance Z71.3 and Type 2 diabetes mellitus without complication, without long-term current use of insulin E11.[address] [facility] [address] [place] [address] 09/14/2024 JONATAN MOISE BMI 25.0-25.9,adult Z68.25 ; Overweight (BMI 25.0-29.9) E66.3 ; Dietary counseling and surveillance Z71.3 and Type 2 diabetes mellitus without complication, without long-term current use of insulin E11.[address] [facility] [place] [address] 10/19/2024 JONATANROSA RENEET Type 2 diabetes manasa itus without complication, without long-term current use of insulin E11.9 ; BMI 24.0-24.9, adult Z68.24 and Dietary counseling and surveillance Z71.3 [facility] [address] [place] [address] 11/23/2024 JONATAN ANDERSHOT Type 2 diabetes manasa itus without complication, without long-term current use of insulin E11.9 ; BMI 24.0-24.9, adult Z68.24 ; Dietary counseling and surveillance Z71.3 and Irritable bowel syndrome with constipation K58.[address] [address] 01/17/2025 JONATAN BORHOT Type 2 diabetes manasa itus without complication, without long-term current use of insulin E11.9 ; BMI 24.0-24.9, adult Z68.24 ; Dietary counseling and surveillance Z71.3 and Irritable bowel syndrome with constipation K58.[address] [facility] [address] [place], [place] 02/22/2025 JONATANROSA RENEET Type 2 diabetes manasa itus without complication, without long-term current use of insulin E11.9 ; Dietary counseling and surveillance Z71.3 ; Irritable bowel syndrome with constipation K58.1 ; Encounter for examination of blood pressure without abnormal findings Z01.30 and BMI 23.0-23.9, adult Z68.[address] [facility] [address] [place] [address] 04/12/2025 JONATAN ANDERSHOT Type 2 diabetes manasa itus without complication, without long-term current use of insulin E11.9 ; Dietary counseling and surveillance Z71.3 ; BMI 23.0-23.9, adult Z68.23 ; Irritable bowel syndrome with constipation K58.1 and Encounter for examination of blood pressure without abnormal findings Z01.30 [facility] [address] [place] [address] 06/21/2025 JONATAN ANDERSHOT Type 2 diabetes manasa itus without complication, without long-term current use of insulin E11.9 ; Dietary counseling and surveillance Z71.3 ; BMI 23.0-23.9, adult Z68.23 ; Irritable bowel syndrome with constipation K58.1 and Encounter for examination of blood pressure without abnormal findings Z01.30 [facility] [address] [place] [address] 09/18/2024 JONATAN MOISE Overweight (BMI 25.0-29.9) E66.3 [...] software and direct typing Please excuse inadvertent sock knitting machine operator or typing errors, or uncorrected word substitutions Although every attempt has been made by the provider to proofread this document, occasional misspellings and typographical errors may still be present Due to the previous pandemic, and the use of personal protective equipment (PPE) This may decrease voice recognition accuracy Inadvertent sock knitting machine operator errors may occur 09/14/2024 BMI 25.0-25.9,adult (ICD-10 [...] software and direct typing Please excuse inadvertent sock knitting machine operator or typing errors, or uncorrected word substitutions Although every attempt has been made by the provider to proofread this document, occasional misspellings and typographical errors may still be present Due to the previous pandemic, and the use of personal protective equipment (PPE) This may decrease voice recognition accuracy Inadvertent sock knitting machine operator errors may occur 10/19/2024 Type 2 diabetes [...] software and direct typing Please excuse inadvertent sock knitting machine operator or typing errors, or uncorrected word substitutions Although every attempt has been made by the provider to proofread this document, occasional misspellings and typographical errors may still be present Due to the previous pandemic, and the use of personal protective equipment (PPE) This may decrease voice recognition accuracy Inadvertent sock knitting machine operator errors may occur 11/23/2024 Type 2 diabetes [...] software and direct typing Please excuse inadvertent sock knitting machine operator or typing errors, or uncorrected word substitutions Although every attempt has been made by the provider to proofread this document, occasional misspellings and typographical errors may still be present Due to the previous pandemic, and the use of personal protective equipment (PPE) This may decrease voice recognition accuracy Inadvertent sock knitting machine operator errors may occur 09/18/2024 Overweight (BMI 25.0-29.9) (ICD-10 - E66.3) 01/17/2025 Type 2 diabetes mellitus without complication, [...] software and direct typing Please excuse inadvertent sock knitting machine operator or typing errors, or uncorrected word substitutions Although every attempt has been made by the provider to proofread this document, occasional misspellings and typographical errors may still be present Due to the previous pandemic, and the use of personal protective equipment (PPE) This may decrease voice recognition accuracy Inadvertent sock knitting machine operator errors may occur 02/22/2025 Type 2 diabetes [...] software and direct typing Please excuse inadvertent sock knitting machine operator or typing errors, or uncorrected word substitutions Although every attempt has been made by the provider to proofread this document, occasional misspellings and typographical errors may still be present Due to the previous pandemic, and the use of personal protective equipment (PPE) This may decrease voice recognition accuracy Inadvertent sock knitting machine operator errors may occur 04/12/2025 Type 2 diabetes [...] software and direct typing Please excuse inadvertent sock knitting machine operator or typing errors, or uncorrected word substitutions Although every attempt has been made by the provider to proofread this document, occasional misspellings and typographical errors may still be present Due to the previous pandemic, and the use of personal protective equipment (PPE) This may decrease voice recognition accuracy Inadvertent sock knitting machine operator errors may occur 06/21/2025 Type 2 diabetes [...] software and direct typing Please excuse inadvertent sock knitting machine operator or typing errors, or uncorrected word substitutions Although every attempt has been made by the provider to proofread this document, occasional misspellings and typographical errors may still be present Due to the previous pandemic, and the use of personal protective equipment (PPE) This may decrease voice recognition accuracy Inadvertent sock knitting machine operator errors may occur 06/21/2025 Dietary counseling and [...] software and direct typing Please excuse inadvertent sock knitting machine operator or typing errors, or uncorrected word substitutions Although every attempt has been made by the provider to proofread this document, occasional misspellings and typographical errors may still be present Due to the previous pandemic, and the use of personal protective equipment (PPE) This may decrease voice recognition accuracy Inadvertent sock knitting machine operator errors may occur 04/12/2025 Dietary counseling and [...] software and direct typing Please excuse inadvertent sock knitting machine operator or typing errors, or uncorrected word substitutions Although every attempt has been made by the provider to proofread this document, occasional misspellings and typographical errors may still be present Due to the previous pandemic, and the use of personal protective equipment (PPE) This may decrease voice recognition accuracy Inadvertent sock knitting machine operator errors may occur 02/22/2025 Dietary counseling and [...] software and direct typing Please excuse inadvertent sock knitting machine operator or typing errors, or uncorrected word substitutions Although every attempt has been made by the provider to proofread this document, occasional misspellings and typographical errors may still be present Due to the previous pandemic, and the use of personal protective equipment (PPE) This may decrease voice recognition accuracy Inadvertent sock knitting machine operator errors may occur 01/17/2025 BMI 24.0-24.9, adult [...] software and direct typing Please excuse inadvertent sock knitting machine operator or typing errors, or uncorrected word substitutions Although every attempt has been made by the provider to proofread this document, occasional misspellings and typographical errors may still be present Due to the previous pandemic, and the use of personal protective equipment (PPE) This may decrease voice recognition accuracy Inadvertent sock knitting machine operator errors may occur 11/23/2024 BMI 24.0-24.9, adult [...] software and direct typing Please excuse inadvertent sock knitting machine operator or typing errors, or uncorrected word substitutions Although every attempt has been made by the provider to proofread this document, occasional misspellings and typographical errors may still be present Due to the previous pandemic, and the use of personal protective equipment (PPE) This may decrease voice recognition accuracy Inadvertent sock knitting machine operator errors may occur 10/19/2024 BMI 24.0-24.9, adult [...] software and direct typing Please excuse inadvertent sock knitting machine operator or typing errors, or uncorrected word substitutions Although every attempt has been made by the provider to proofread this document, occasional misspellings and typographical errors may still be present Due to the previous pandemic, and the use of personal protective equipment (PPE) This may decrease voice recognition accuracy Inadvertent sock knitting machine operator errors may occur 09/14/2024 Overweight (BMI 25.0-29.9) [...] software and direct typing Please excuse inadvertent sock knitting machine operator or typing errors, or uncorrected word substitutions Although every attempt has been made by the provider to proofread this document, occasional misspellings and typographical errors may still be present Due to the previous pandemic, and the use of personal protective equipment (PPE) This may decrease voice recognition accuracy Inadvertent sock knitting machine operator errors may occur 09/14/2024 Dietary counseling and [...] software and direct typing Please excuse inadvertent sock knitting machine operator or typing errors, or uncorrected word substitutions Although every attempt has been made by the provider to proofread this document, occasional misspellings and typographical errors may still be present Due to the previous pandemic, and the use of personal protective equipment (PPE) This may decrease voice recognition accuracy Inadvertent sock knitting machine operator errors may occur 07/27/2024 Overweight (BMI 25.0-29.9) [...] software and direct typing Please excuse inadvertent sock knitting machine operator or typing errors, or uncorrected word substitutions Although every attempt has been made by the provider to proofread this document, occasional misspellings and typographical errors may still be present Due to the previous pandemic, and the use of personal protective equipment (PPE) This may decrease voice recognition accuracy Inadvertent sock knitting machine operator errors may occur 07/27/2024 Dietary counseling and [...] software and direct typing Please excuse inadvertent sock knitting machine operator or typing errors, or uncorrected word substitutions Although every attempt has been made by the provider to proofread this document, occasional misspellings and typographical errors may still be present Due to the previous pandemic, and the use of personal protective equipment (PPE) This may decrease voice recognition accuracy Inadvertent sock knitting machine operator errors may occur 07/27/2024 Type 2 diabetes [...] software and direct typing Please excuse inadvertent sock knitting machine operator or typing errors, or uncorrected word substitutions Although every attempt has been made by the provider to proofread this document, occasional misspellings and typographical errors may still be present Due to the previous pandemic, and the use of personal protective equipment (PPE) This may decrease voice recognition accuracy Inadvertent sock knitting machine operator errors may occur 09/14/2024 Type 2 diabetes [...] software and direct typing Please excuse inadvertent sock knitting machine operator or typing errors, or uncorrected word substitutions Although every attempt has been made by the provider to proofread this document, occasional misspellings and typographical errors may still be present Due to the previous pandemic, and the use of personal protective equipment (PPE) This may decrease voice recognition accuracy Inadvertent sock knitting machine operator errors may occur 11/23/2024 Dietary counseling and [...] software and direct typing Please excuse inadvertent sock knitting machine operator or typing errors, or uncorrected word substitutions Although every attempt has been made by the provider to proofread this document, occasional misspellings and typographical errors may still be present Due to the previous pandemic, and the use of personal protective equipment (PPE) This may decrease voice recognition accuracy Inadvertent sock knitting machine operator errors may occur 01/17/2025 Dietary counseling and [...] software and direct typing Please excuse inadvertent sock knitting machine operator or typing errors, or uncorrected word substitutions Although every attempt has been made by the provider to proofread this document, occasional misspellings and typographical errors may still be present Due to the previous pandemic, and the use of personal protective equipment (PPE) This may decrease voice recognition accuracy Inadvertent sock knitting machine operator errors may occur 10/19/2024 Dietary counseling and [...] software and direct typing Please excuse inadvertent sock knitting machine operator or typing errors, or uncorrected word substitutions Although every attempt has been made by the provider to proofread this document, occasional misspellings and typographical errors may still be present Due to the previous pandemic, and the use of personal protective equipment (PPE) This may decrease voice recognition accuracy Inadvertent sock knitting machine operator errors may occur 02/22/2025 Irritable bowel syndrome [...] software and direct typing Please excuse inadvertent sock knitting machine operator or typing errors, or uncorrected word substitutions Although every attempt has been made by the provider to proofread this document, occasional misspellings and typographical errors may still be present Due to the previous pandemic, and the use of personal protective equipment (PPE) This may decrease voice recognition accuracy Inadvertent sock knitting machine operator errors may occur 04/12/2025 BMI 23.0-23.9, adult [...] software and direct typing Please excuse inadvertent sock knitting machine operator or typing errors, or uncorrected word substitutions Although every attempt has been made by the provider to proofread this document, occasional misspellings and typographical errors may still be present Due to the previous pandemic, and the use of personal protective equipment (PPE) This may decrease voice recognition accuracy Inadvertent sock knitting machine operator errors may occur 06/21/2025 BMI 23.0-23.9, adult [...] software and direct typing Please excuse inadvertent sock knitting machine operator or typing errors, or uncorrected word substitutions Although every attempt has been made by the provider to proofread this document, occasional misspellings and typographical errors may still be present Due to the previous pandemic, and the use of personal protective equipment (PPE) This may decrease voice recognition accuracy Inadvertent sock knitting machine operator errors may occur 06/21/2025 Irritable bowel syndrome [...] software and direct typing Please excuse inadvertent sock knitting machine operator or typing errors, or uncorrected word substitutions Although every attempt has been made by the provider to proofread this document, occasional misspellings and typographical errors may still be present Due to the previous pandemic, and the use of personal protective equipment (PPE) This may decrease voice recognition accuracy Inadvertent sock knitting machine operator errors may occur 04/12/2025 Irritable bowel syndrome [...] software and direct typing Please excuse inadvertent sock knitting machine operator or typing errors, or uncorrected word substitutions Although every attempt has been made by the provider to proofread this document, occasional misspellings and typographical errors may still be present Due to the previous pandemic, and the use of personal protective equipment (PPE) This may decrease voice recognition accuracy Inadvertent sock knitting machine operator errors may occur 02/22/2025 Encounter for examination [...] software and direct typing Please excuse inadvertent sock knitting machine operator or typing errors, or uncorrected word substitutions Although every attempt has been made by the provider to proofread this document, occasional misspellings and typographical errors may still be present Due to the previous pandemic, and the use of personal protective equipment (PPE) This may decrease voice recognition accuracy Inadvertent sock knitting machine operator errors may occur 01/17/2025 Irritable bowel syndrome [...] software and direct typing Please excuse inadvertent sock knitting machine operator or typing errors, or uncorrected word substitutions Although every attempt has been made by the provider to proofread this document, occasional misspellings and typographical errors may still be present Due to the previous pandemic, and the use of personal protective equipment (PPE) This may decrease voice recognition accuracy Inadvertent sock knitting machine operator errors may occur 11/23/2024 Irritable bowel syndrome [...] software and direct typing Please excuse inadvertent sock knitting machine operator or typing errors, or uncorrected word substitutions Although every attempt has been made by the provider to proofread this document, occasional misspellings and typographical errors may still be present Due to the previous pandemic, and the use of personal protective equipment (PPE) This may decrease voice recognition accuracy Inadvertent sock knitting machine operator errors may occur 02/22/2025 BMI 23.0-23.9, adult [...] software and direct typing Please excuse inadvertent sock knitting machine operator or typing errors, or uncorrected word substitutions Although every attempt has been made by the provider to proofread this document, occasional misspellings and typographical errors may still be present Due to the previous pandemic, and the use of personal protective equipment (PPE) This may decrease voice recognition accuracy Inadvertent sock knitting machine operator errors may occur 04/12/2025 Encounter for examination [...] software and direct typing Please excuse inadvertent sock knitting machine operator or typing errors, or uncorrected word substitutions Although every attempt has been made by the provider to proofread this document, occasional misspellings and typographical errors may still be present Due to the previous pandemic, and the use of personal protective equipment (PPE) This may decrease voice recognition accuracy Inadvertent sock knitting machine operator errors may occur 06/21/2025 Encounter for examination [...] software and direct typing Please excuse inadvertent sock knitting machine operator or typing errors, or uncorrected word substitutions Although every attempt has been made by the provider to proofread this document, occasional misspellings and typographical errors may still be present Due to the previous pandemic, and the use of personal protective equipment (PPE) This may decrease voice recognition accuracy Inadvertent sock knitting machine operator errors may occur Plan Of Treatment Next Appt Details Provider Name:JONATAN MOISE, 08/16/2025 10:00:00 AM, [address] [facility], [place], [address], Insurance Providers Payer Name Payer Address Payer Phone Subscriber Number Group Number Insured Name Patient Relationship to Insured Coverage Start Date Coverage End Date [address] [place] [id number] Annia Montelongo Self - patient is the insured [address] [place] [address] [id number] Annia Montelongo Self - patient is the insured 2 Medical (General) History Medical History History ICD Code type II diabetes asthma headache kidney stones anxiety Surgical History Surgery Date(Month/Year) cholecystectomy
== END 2025-07-15 10:31 | disposition home or self-care (01) ==
PROVIDERS: PCP Internal Medicine; Visit Provider Physician Assistant
DX: N39.0 Urinary tract infection, site not specified (principal); Z13.9 Encounter for screening, unspecified

== ENCOUNTER 2025-07-15 09:54 | Outpatient (REF) | payer OTHER, SELFPAY | END 2025-07-15 09:55 | disposition home or self-care (01) | LOC: HO.LAB 09:54 | PROVIDERS: PCP Internal Medicine; Visit Provider Physician Assistant | DX: N39.0 Urinary tract infection, site not specified (principal) | CPT/HCPCS: 81003; 87086; 87088; 87186; 99212 ==